=== PATIENT | male | born 1965 | race Caucasian/White ===

== ENCOUNTER 2017-04-25 18:24 | Inpatient (IN) | payer MEDICARE ==
[~2017-04-25] VITALS: Ht 190.5 cm; Wt 99.7 kg
[2017-04-25 19:00] VITALS: PULSE 76
--- NOTE | 2017-04-25 19:16 | HHI.HP ---
[facility] No Primary Care Physician Admission Diagnosis Diagnoses: Travel History International Travel<30 Days: No Contact w/Intl Traveler <30 Da: No Traveled to Known Affected Are: No History of Present Illness History from patient, family members at the bedside, review of medical records from [facility]. Patient reported that his primary care doctor called him at home and told him to go to ER because his BNP was greater than 35,000. He reports he has been short of breath. However it was only when he walks around. Not addressed. He states he cannot sleep flat. He usually has to sleep on his left side. Denies any fever. Reports that this dyspnea on exertion has been happening for the past 4-5 months. He reports he has been coughing occasionally. But did not really produce any sputum except for once or twice. He does report of chronic peripheral edema bilaterally in the lower extremities. He states in fact this edema is improving in the past one week or so. His doctor has recently changed his diuretics from Lasix to torsemide. He denies any associated chest pains with this shortness of breath. He does however report of night sweats for the past few months. Denies any weight loss. Denies any loss of appetite. On further review of system, patient reports of diarrhea on and off for the past 4-5 months. He states that usually he would have diarrhea at least 3-4 times a day. At least out of the 7 days in a week, he would have diarrhea about 4 days. He denies any black color stools or red-colored stools. Denies being on antibiotics or hospitalization. Denies ever having any EGD or colonoscopy prior. Review of Systems Except as stated in HPI: all other systems reviewed are Neg Past Family Social History Past Medical History htn- off meds for years dm- off meds for about 1 yr; was taking trujaenda chf- on diuretics- has been over a year , no changes in dose Past Surgical History both knees replaced diabetic ulcer- toe amputation Allergies: Coded Allergies: No Known Allergies (Verified Allergy, Unknown, 04/25/17) Family History moms side- alzeimers none that he knows of Social History never smoked was exposed to second hand smoke no drugs no etoh abuse Physical Exam Physical Exam GENERAL: This is a well-nourished, well-developed patient, in no apparent distress. SKIN: No rashes, ecchymoses or lesions. Cool and dry. Pallor present HEAD: Atraumatic. Normocephalic. No temporal or scalp tenderness. EYES: No scleral icterus. No injection or drainage. ENT: Nose without bleeding, purulent drainage or septal hematoma. Airway patent. NECK: Trachea midline. Positive JVD CARDIOVASCULAR: Regular rate and rhythm without murmurs, gallops, or rubs. RESPIRATORY: Left lung field completely absent air entry. GASTROINTESTINAL: Abdomen soft, non-tender, nondistended. No guarding. No suprapubic tenderness. MUSCULOSKELETAL: Extremities without clubbing, cyanosis. Bilateral lower extremity 3+ pitting edema up to thighs. Small superficial skin ulcerations bilaterally from fluid retention and minor abrasions. NEUROLOGICAL: Awake and alert. Motor and sensory grossly within normal limits. Normal speech. Laboratory Labs from [place] which was done today reviewed. WBC 6.2. Hemoglobin 8.1, hematocrit 24.7. Platelet count 204. Sodium 140. Potassium 5.6. BUN 86. Creatinine 4.99. Glucose 177. AST ALT, bili profile within normal limits. BNP greater than 35,000. Albumin 2.7. Vitals and [place] reviewed. Blood pressure 161/82. Temperature 98.2. Imaging Chest x-ray done at [place]. Report reviewed. Complete opacification of left hemithorax likely secondary to pleural effusion. Mucous plug cannot be excluded. Caprini VTE Risk Assessment Caprini VTE Risk Assessment: Mod/High Risk (score >= 2) Caprini Risk Assessment Model Point Value = 1 Point Value = 2 Point Value = 3 Point Value = 5 Age 41-60 Minor surgery BMI > 25 kg/m2 Swollen legs Varicose veins or History of unexplained or recurrent spontaneous Oral contraceptives or hormone replacement Sepsis (< 1 month) Serious lung disease, including pneumonia (< 1 month) Abnormal pulmonary function Acute myocardial infarction Congestive heart failure (< 1 month) History of inflammatory bowel disease Medical patient at bed rest Age 61-74 Arthroscopic surgery Major open surgery (> 45 min) Laparoscopic surgery (> 45 min) Malignancy Confined to bed (> 72 hours) Immobilizing plaster cast Central venous access Age >= 75 History of VTE Family history of VTE Factor V Leiden Prothrombin [id number] Lupus anticoagulant Anticardiolipin antibodies Elevated serum homocysteine Heparin-induced thrombocytopenia Other congenital or acquired thrombophilia Stroke (< 1 month) Elective arthroplasty Hip, pelvis, or leg fracture Acute spinal cord injury (< 1 month) Prophylaxis Regimen Total Risk Factor Score Risk Level Prophylaxis Regimen 0-1 Low Early ambulation 2 Moderate Order ONE of the following: *Sequential Compression Device (SCD) *Heparin 5000 units SQ BID 3-4 Higher Order ONE of the following medications: *Heparin 5000 units SQ TID *Enoxaparin/Lovenox 40 mg SQ daily (WT < 150 kg, CrCl > 30 mL/min) *Enoxaparin/Lovenox 30 mg SQ daily (WT < 150 kg, CrCl > 10-29 mL/min) *Enoxaparin/Lovenox 30 mg SQ BID (WT < 150 kg, CrCl > 30 mL/min) AND/OR *Sequential Compression Device (SCD) 5 or more Highest Order ONE of the following medications: *Heparin 5000 units SQ TID (Preferred with Epidurals) *Enoxaparin/Lovenox 40 mg SQ daily (WT < 150 kg, CrCl > 30 mL/min) *Enoxaparin/Lovenox 30 mg SQ daily (WT < 150 kg, CrCl > 10-29 mL/min) *Enoxaparin/Lovenox 30 mg SQ BID (WT < 150 kg, CrCl > 30 mL/min) AND *Sequential Compression Device (SCD) Assessment and Plan Assessment and Plan Impression: Acute on chronic heart failure Left pleural effusion. Likely secondary to CHF exacerbation/renal failure. Renal failure acute versus acute on chronic versus medications and used. Patient was recently started on lisinopril, torsemide. Bilateral lower extremity peripheral edema with weeping ulceration. Secondary to fluid retention. Also worsened by small scraping/accidents while patient was helping his cousin with a boat. Elevated BNP. Secondary to heart failure/renal failure Elevated troponin 0.88. Asymptomatic. Secondary to renal failure. Anemia. Acute versus chronic. Patient denies any history of black stools or red stools. Diarrhea of 4-5 months duration. Could be contributing to his acute renal failure with intravascular depletion/use of diuretics. Diabetes Hypertension Hyperlipidemia History of CHF Plan: CT-guided thoracocentesis by interventional radiologist in a.m. We'll send samples for cytology, cultures, cell count etc. Echocardiogram in a.m. Ultrasound of the kidney/bladder/prostate in a.m. Hold Triston inhibitors for now. We'll use hydralazine for BP control. Continue Coreg. Nephrology consult. Cardiology consult. At present, patient is quite comfortable so long as he is lying in bed and lying on his left side. Therefore I would hold off on diuretics due to his acute renal failure. If patient does get extremely short of breath, will diurese. Hemoglobin and hematocrit. Type and screen. Stool for guaiac. Iron profile. Likely this patient has chronic anemia as well. In view of his diarrhea of 4-5 months duration which is coinciding with his dyspnea, I would also consult GI service for possible EGD/colonoscopy while in hospital. Monitor his fingersticks. Cover with sliding scale coverage. Nothing by mouth past midnight for thoracocentesis. DVT prophylaxis with heparin. GI prophylaxis on pantoprazole. Discussed Condition With Patient, nursing staff, family members at the bedside Physician Certification 2 Midnight Certification Type: Admission for Inpatient Services Order for Inpatient Services The services are ordered in accordance with Medicare regulations or non- Medicare payer requirements, as applicable. In the case of services not specified as inpatient-only, they are appropriately provided as inpatient services in accordance with the 2-midnight benchmark. Estimated LOS (days): 4 days is the estimated time the patient will need to remain in the hospital, assuming treatment plan goals are met and no additional complications. Post-Hospital Plan: Home Henri Gómez MD Apr 25, 2017 19:16
[2017-04-25 20:00] VITALS: BP 191/109; PULSE 75; PULSE 77; RESP 20; TEMP 97.8; O2SAT 97
[2017-04-25] MEDS ORDERED: GLUCAGON 1 MG/ML VIAL OTHER PRN (20:00)
[2017-04-25] MEDS ORDERED: NALOXONE HCL 0.4 MG/ML AMP IV PUSH PRN (20:00)
[2017-04-25] MEDS ORDERED: SODIUM CHLORIDE 0.9% FLUSH 10 ML FLUSH IV FLUSH PRN (20:00)
[2017-04-25] MEDS ORDERED: DEXTROSE 50% IN WATER 50 ML VIAL(D50) IV PUSH PRN (20:00)
[2017-04-25 21:00] VITALS: PULSE 74
[2017-04-25] MEDS: INSULIN ASPART SUPPLEMENTAL SCALE SQ SCH (21:00)
[2017-04-25 22:00] VITALS: PULSE 74
[2017-04-25 22:28] LABS: % SATURATION IRON PROFILE 13.2 % (20-50); IRON (FE) 35 MCG/DL (65-175); TOTAL IRON BINDING CAPACITY 265 MCG/DL (250-450); TROPONIN I LESS THAN 0.02 NG/ML (0.02-0.05)
[2017-04-25] MEDS: CARVEDILOL 12.5 MG TAB PO SCH (22:52)
[2017-04-25] MEDS: hydrALAZINE HCL 25 MG TAB PO SCH (22:53)
[2017-04-25] MEDS: HEPARIN SODIUM - SQ 10,000 UNITS/ML VIAL SQ SCH (22:53)
[2017-04-25] MEDS: SODIUM CHLORIDE 0.9% FLUSH 10 ML FLUSH IV FLUSH SCH (22:54)
[2017-04-25 23:00] VITALS: PULSE 74
[2017-04-26] VITALS (24 sets, daily range): BP systolic 131–177; BP diastolic 72–110; PULSE 62–72; RESP 16–20; TEMP 97.7–98.6; O2SAT 92–97
[2017-04-26 02:59] LABS: AUTOMATED NEUTROPHIL # 4.7 TH/MM3 (1.8-7.7); BASOPHIL # 0.2 TH/MM3 (0-0.2); BASOPHIL % 3.2 % (0.0-2.0); EOSINOPHIL # 0.2 TH/MM3 (0-0.4); EOSINOPHIL % 2.4 % (0.0-4.0); HEMATOCRIT 22.9 % (39.0-51.0); HEMOGLOBIN 7.7 GM/DL (13.0-17.0); LYMPH % 11.3 % (9.0-44.0); LYMPHOCYTE # 0.7 TH/MM3 (1.0-4.8); MEAN CELL VOLUME 88.3 FL (80.0-100.0); MEAN CORPUSCULAR HEMOGLOBIN 29.8 PG (27.0-34.0); MEAN CORPUSCULAR HGB CONC 33.8 % (32.0-36.0); MEAN PLATELET VOLUME 7.5 FL (7.0-11.0); MONO % 9.2 % (0.0-8.0); MONOCYTE # 0.6 TH/MM3 (0-0.9); NEUT % 73.9 % (16.0-70.0); PLATELET COUNT 192 TH/MM3 (150-450); RED CELL DISTRIBUTION WIDTH 14.8 % (11.6-17.2); WHITE BLOOD COUNT 6.4 TH/MM3 (4.0-11.0)
[2017-04-26 03:31] LABS: BICARBONATE 24.8 MEQ/L (21.0-32.0); CALCIUM 8.2 MG/DL (8.5-10.1); CREATININE 5.26 MG/DL (0.60-1.30)
[2017-04-26 03:35] LABS: TROPONIN I LESS THAN 0.02 NG/ML (0.02-0.05)
[2017-04-26] MEDS: hydrALAZINE HCL 25 MG TAB PO SCH ×4 (05:43→22:09)
[2017-04-26] MEDS: INSULIN ASPART SUPPLEMENTAL SCALE SQ SCH ×4 (08:00→22:08)
[2017-04-26] MEDS: HEPARIN SODIUM - SQ 10,000 UNITS/ML VIAL SQ SCH ×2 (09:00→20:28)
--- NOTE | 2017-04-26 10:09 | RADRPT ---
EXAM DATE/TIME: 04/26/2017 07:46 [facility] COMPARISON: No previous studies available for comparison. INDICATIONS : Renal failure. MEDICAL HISTORY : Hypertension. Congestive heart failure. Diabetes. Endocrine disorders. SURGICAL HISTORY : Bilateral knee arthroscopies. ENCOUNTER: Initial ACUITY: 1 day PAIN SCORE: 3/10 LOCATION: Bilateral flank MEASUREMENTS: RIGHT KIDNEY: 12.6 x 6.1 x 5.0 cm LEFT KIDNEY: 12.2 x 6.9 x 3.9 cm FINDINGS: The kidneys demonstrates increased echogenicity of the cortex compatible with medical renal disease. No hydronephrosis or mass lesions are identified. There is a trace of fluid surrounding the spleen. T he bladder appears normal. No wall thickening or intraluminal masses are identified. CONCLUSION: Echogenic kidneys bilaterally compatible with medical renal disease. Trace ascites Mark Maravilla MD on April 26, 2017 at 9:28 Board Certified Radiologist. This report was verified electronically.
[2017-04-26] MEDS: PANTOPRAZOLE SOD 40 MG DELAYED RELEASE TAB PO SCH (10:41)
[2017-04-26] MEDS: SODIUM CHLORIDE 0.9% FLUSH 10 ML FLUSH IV FLUSH SCH ×2 (10:41→20:14)
[2017-04-26] MEDS: CARVEDILOL 12.5 MG TAB PO SCH ×2 (10:42→20:28)
[2017-04-26] MEDS: hydrALAZINE HCL 20 MG/ML VIAL IV PUSH PRN ×2 (10:46→18:00)
[2017-04-26 10:56] LABS: INTERNATIONAL NORMALIZED RATIO 1.2 RATIO; PROTHROMBIN TIME - PATIENT 12.6 SEC (9.8-11.6)
--- NOTE | 2017-04-26 11:19 | MB ---
cc: Norm Denis MD DATE OF CONSULT: REASON FOR CONSULTATION: Evaluation of congestive heart failure and shortness of breath. HISTORY: Leif Moseley is a 51-year-old man with known hypertension, diabetes and congestive heart failure who has been on no medications for over a year and has not seen a doctor in over a year. He has been getting progressive shortness of breath along with edema in his feet. He says he went to And then sent here. The patient has noticed his shortness of breath worse if he lies on his right side. He has a large left pleural effusion. The lower extremity edema has been severe and he has actually had some weeping. He has had some diarrhea. Denies any melena or hematochezia. Denies any anginal pain or anginal type symptoms, only dyspnea. He does some walking, but not that much. PAST MEDICAL HISTORY: Includes: 1. Hypertension 2. Diabetes 3. Congestive heart failure. He has been on nothing but diuretics and has had no follow up. PAST SURGICAL HISTORY: Includes: 1. Knee surgery 2. He has had his right fourth and fifth toes amputated. SOCIAL HISTORY: He is , nonsmoker and nondrinker. FAMILY HISTORY: Notable for Alzheimer's in his mother. No heart disease that he is aware of. CLINICAL EXAM: GENERAL: This is a well-developed, well-nourished man with normal affect in no acute distress. VITAL SIGNS: Charted. HEENT: Unremarkable. NECK: Shows neck vein distention. There is a soft right carotid bruit. CHEST: Shows absent breath sounds on the left side. CARDIAC: Shows normal S1 and S2, soft S4 and a 1/6 systolic ejection murmur. ABDOMEN: Looks mildly distended, cannot rule out ascites. EXTREMITIES: Show 3+ lower extremity edema up to the thighs. Right fourth and fifth toes surgically absent. Dorsalis pedis pulses are very palpable. LABORATORY DATA: Very abnormal and they are charted. His hematocrit is only 22.9, creatinine is 5.26, potassium is 5.3. Troponins are less than 0.02. He is iron deficient with an iron saturation of 13.2%. IMPRESSION: This is a 51-year-old man with renal failure with evidence for severe fluid retention, pleural effusions and lower extremity edema. The rest of this I think is due to the kidney state. PLAN: 1. Check a 2-D echo Doppler study to assess LV function. 2. We will leave the diuretic management up to nephrology. It looks like he may need to be on renal replacement therapy if not now in the very near future. 3. Further therapy to be determined. MD ESHA Hassan/ZAKI/guzman , 08:01 AM , 09:51 AM
[2017-04-26] MEDS ORDERED: LIDOCAINE HCL 1% 20 ML VIAL ONE (14:13)
--- NOTE | 2017-04-26 14:16 | RADRPT ---
EXAM DATE/TIME: 04/26/2017 14:02 [facility] COMPARISON: No previous studies available for comparison. INDICATIONS : Post left thoracentesis. MEDICAL HISTORY : Hypertension. Congestive heart failure. SURGICAL HISTORY : Knee ENCOUNTER: Initial ACUITY: 1 day PAIN SCORE: 0/10 LOCATION: Left chest FINDINGS: A single frontal expiratory view of the chest was performed. Pleural-parenchymal density throughout t he left hemithorax with small portion of aerated lung. There is some slight volume loss in the left. No pneumothorax seen. Right lung relatively clear. CONCLUSION: 1. No pneumothorax on the left. 2. Pleural proximal density throughout the left hemithorax likely residual loculated effusion. Contra sted CT chest recommended. Robert Estrada MD on April 26, 2017 at 14:13 Board Certified Radiologist. This report was verified electronically.
--- NOTE | 2017-04-26 15:09 | PD.CONS ---
HPI History of Present Illness This is a 51 year old M with PMH significant for HTN, CHF, and DM, has recently been off medications for HNT and DM for over a year. Pt was sent by his PCP to the hospital for evaluation of an elevated BNP. Pt reports history of SOB on exertion and orthopnea for the past 4-5 months. Ptwas found to have a pleural effusion is now S/P thoracentesis. GI has been consulted to evaluate pt for diarrhea and anemia. Pt report diarrhea has been intermittent for the past 4-5 months, some days he has multiple episodes of loose, watery stools and other days his BMs are normal. He denies any fecal urgency or incontinence. Denies hematochezia and melena. Denies associated abdominal pain. Also denies acid reflux, heartburn, dysphagia, unintentional weight loss. Has never had EGD or colonoscopy. Denies taking NSAIDs, blood thinners, ETOH. Denies history of anemia or blood dyscrasias. 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 (Arianne Dillon) Coded Allergies: No Known Allergies (Verified Allergy, Unknown, 04/25/17) Family History moms side- sohanmers none that he knows of Social History never smoked was exposed to second hand smoke no drugs no etoh abuse (Arianne Dillon) Review of Systems Gastrointestinal: COMPLAINS OF: Diarrhea, DENIES: Abdominal pain, Black stools , Bloody stools, Constipation, Nausea, Vomiting, Difficulty Swallowing, Odynophagia, Swelling of Abdomen, Heartburn, Hematemesis (Arianne Dillon) GI Exam Vitals I&O Vital Signs Date Time Temp Pulse Resp B/P (MAP) Pulse Ox O2 Delivery O2 Flow Rate FiO2 04/26/17 13:30 98.3 64 20 148/92 (110) 94 04/26/17 06:00 68 04/26/17 05:00 68 04/26/17 04:00 98.4 69 20 162/98 (119) 95 04/26/17 04:00 69 04/26/17 03:00 68 04/26/17 02:00 66 04/26/17 01:00 66 04/26/17 00:00 68 04/26/17 00:00 97.7 67 20 131/72 (91) 92 04/25/17 23:00 74 04/25/17 22:00 74 04/25/17 21:00 74 04/25/17 20:00 77 04/25/17 20:00 97.8 75 20 191/109 (136) 97 04/25/17 19:00 76 I/O 04/25/17 04/25/17 04/25/17 04/26/17 04/26/17 04/26/17 07:00 15:00 23:00 07:00 15:00 23:00 Intake Total 240 ml Balance 240 ml Intake Oral 240 ml # Voids 1 Imaging Last Impressions Renal Ultrasound 04/26/17 0000 Signed Impressions: Service Date/Time: Wednesday, April 26, 2017 07:46 - CONCLUSION: Echogenic kidneys bilaterally compatible with medical renal disease. Trace ascites Mark Maravilla MD Chest X-Ray 04/26/17 0000 Signed Impressions: Service Date/Time: Wednesday, April 26, 2017 14:02 - CONCLUSION: 1. No pneumothorax on the left. 2. Pleural proximal density throughout the left hemithorax likely residual loculated effusion. Contrasted CT chest recommended. Robert Estrada MD Laboratory Test 04/25/17 21:35 04/25/17 21:39 04/26/17 02:53 04/26/17 10:28 Iron Level 35 MCG/DL Total Iron Binding Capacity 265 MCG/DL Percent Iron Saturation 13.2 % Total Creatine Kinase 307 U/L 240 U/L Troponin I LESS THAN 0.02 NG/ML LESS THAN 0.02 NG/ML B-Type Natriuretic Peptide 1915 PG/ML White Blood Count 6.4 TH/MM3 Red Blood Count 2.60 MIL/MM3 Hemoglobin 7.7 GM/DL Hematocrit 22.9 % Mean Corpuscular Volume 88.3 FL Mean Corpuscular Hemoglobin 29.8 PG Mean Corpuscular Hemoglobin Concent 33.8 % Red Cell Distribution Width 14.8 % Platelet Count 192 TH/MM3 Mean Platelet Volume 7.5 FL Neutrophils (%) (Auto) 73.9 % Lymphocytes (%) (Auto) 11.3 % Monocytes (%) (Auto) 9.2 % Eosinophils (%) (Auto) 2.4 % Basophils (%) (Auto) 3.2 % Neutrophils # (Auto) 4.7 TH/MM3 Lymphocytes # (Auto) 0.7 TH/MM3 Monocytes # (Auto) 0.6 TH/MM3 Eosinophils # (Auto) 0.2 TH/MM3 Basophils # (Auto) 0.2 TH/MM3 CBC Comment DIFF FINAL Differential Comment Blood Urea Nitrogen 89 MG/DL Creatinine 5.26 MG/DL Random Glucose 206 MG/DL Calcium Level 8.2 MG/DL Sodium Level 138 MEQ/L Potassium Level 5.3 MEQ/L Chloride Level 106 MEQ/L Carbon Dioxide Level 24.8 MEQ/L Anion Gap 7 MEQ/L Estimat Glomerular Filtration Rate 12 ML/MIN Prothrombin Time 12.6 SEC Prothromb Time International Ratio 1.2 RATIO Activated Partial Thromboplast Time 26.7 SEC Test 04/26/17 13:50 Pleural Fluid pH 8.0 Date/Time Source Procedure Growth Status 04/26/17 13:50 Fluid Pleural Fluid Gram Stain Pending Received 04/26/17 13:50 Fluid Pleural Fluid Body Fluid Culture Pending Received Physical Examination HEENT: Normocephalic; atraumatic CHEST: Even/unlabored CARDIAC: RRR ABDOMEN: Soft, nondistended, nontender; bowel sounds active EXTREMITIES: BLE edema SKIN: Normal; no rash; (+) jaundice. IMPROVEMENT INTERN: No focal deficits; alert and oriented times three. (Arianne Dillon) Assessment and Plan Plan Assessment: - Diarrhea, intermittent for the past 4-5 months. States has days with multiple , loose stool and other days where his stools are formed. Denies fecal urgency, incontinence, hematochezia, melena, fever, chills, sick contacts. Has never had EGD or colonoscopy. Protonix - Anemia- unclear etiology, normocytic, denies history of anemia and blood dyscrasias. ?OSMANY denies history of renal impairment, hx of DM, off medication. ?hemolytic- pt appears jaundiced - Jaundice, per family pt does appear more of an orange color, no LFTs from this visit - Pleural effusion S/P thoracentesis prior to my exam, reports improvement in SOB - CHF exacerbation- elevated BNP - diuretic per nephrology Plan: Cardiac work up prior to GI procedures EGD/colon likely later this week pending cardiac work up Stool cultures Hemoccult stool Hepatic function profile Monitor CBC Protonix Notify GI of any active bleeding Further recommendations based on findings of above Pt has been seen and examined by myself and Dr. Matt and this note is written on his behalf (Arianne Dillon) Plan Patient was seen and examined, agree with above-noted, patient has multiple issues including renal failure, congestive heart failure, diabetes, anemia most likely related to chronic disease but we need to rule out GI source so the patient will need upper endoscopy and colonoscopy when stable from cardiac and nephrology aspect, meanwhile we will do supportive care, give him packed RBC as needed, patient also has diarrhea which is very mild and could be related to congestive heart failure very minimal and we will do stool culture and monitor (Yuliet Matt MD) Arianne Dillon Apr 26, 2017 15:09 Yuliet Matt MD Apr 26, 2017 15:37
[2017-04-26 15:13] LABS: TOTAL PROTEIN,PLEURAL FLUID 1.5 GM/DL
--- NOTE | 2017-04-26 15:14 | PD.CONS ---
HPI Service Nephrology Consult Requested By Dr. Gómez Reason for Consult Acute and chronic kidney disease Primary Care Physician No Primary Care Physician History of Present Illness Patient is a 51-year-old male with history of diabetes diagnosed in 2011 initially was taking oral medications and last couple of years started taking insulin, patient lost follow-up and has not seen primary care physician until last and she directed him to come to the hospital due to abnormal labs, creatinine is 5.26, GFR 12, he is experiencing edema up to his waistline and it has been going on since past year, gets short of breath as well , He gets fatigued Denies dysuria burning or kidney stones Review of Systems Constitutional: COMPLAINS OF: Fatigue Respiratory: COMPLAINS OF: Shortness of breath Cardiovascular: COMPLAINS OF: Dyspnea on Exertion, Lower Extremity Edema Musculoskeletal: COMPLAINS OF: Joint pain Neurologic: COMPLAINS OF: Abnormal gait Past Family Social History Allergies: Coded Allergies: No Known Allergies (Verified Allergy, Unknown, 04/25/17) Past Medical History Diabetes Hypertension Chronic kidney disease Peripheral edema Anemia Past Surgical History Bilateral knee toe amputation Active Ordered Medications Current Medications Medications (Trade) Dose Ordered Sig/Dilcia Route Start Time Stop Time Status Last Admin (D50w (Vial) Inj) 50 ml UNSCH PRN IV PUSH 04/25/17 20:00 (Glucagon Inj) 1 mg UNSCH PRN OTHER 04/25/17 20:00 (NovoLOG SUPPLEMENTAL SCALE) 1 ACHS SLIDING SCALE SQ 04/25/17 21:00 (NS Flush) 2 ml UNSCH PRN IV FLUSH 04/25/17 20:00 (NS Flush) 2 ml BID IV FLUSH 04/25/17 21:00 04/26/17 10:41 (Heparin Inj) 5,000 units Q12H SQ 04/25/17 21:00 04/25/17 22:53 (Narcan Inj) 0.4 mg UNSCH PRN IV PUSH 04/25/17 20:00 (Coreg) 12.5 mg Q12HR PO 04/25/17 21:00 04/26/17 10:42 (Apresoline) 25 mg Q8HR PO 04/25/17 22:00 04/26/17 05:43 (Apresoline Inj) 10 mg Q30M PRN IV PUSH 04/25/17 20:00 04/26/17 10:46 (Protonix) 40 mg DAILY PO 04/26/17 09:00 04/26/17 10:41 (Flu (Quadrivalent) Vaccine Inj) 0.5 ml ONCE ONCE IM 04/27/17 10:00 04/27/17 10:01 Family History Mother side has Alzheimer's disease Social History Denies smoking or alcohol use Physical Exam Vital Signs Vital Signs Date Time Temp Pulse Resp B/P (MAP) Pulse Ox O2 Delivery O2 Flow Rate FiO2 04/26/17 13:30 98.3 64 20 148/92 (110) 94 04/26/17 06:00 68 04/26/17 05:00 68 04/26/17 04:00 98.4 69 20 162/98 (119) 95 04/26/17 04:00 69 04/26/17 03:00 68 04/26/17 02:00 66 04/26/17 01:00 66 04/26/17 00:00 68 04/26/17 00:00 97.7 67 20 131/72 (91) 92 04/25/17 23:00 74 04/25/17 22:00 74 04/25/17 21:00 74 04/25/17 20:00 77 04/25/17 20:00 97.8 75 20 191/109 (136) 97 04/25/17 19:00 76 Physical Exam GENERAL: Well-nourished, well-developed patient. SKIN: Warm and dry. HEAD: Normocephalic. EYES: No scleral icterus. No injection or drainage. NECK: Supple, trachea midline. No JVD or lymphadenopathy. CARDIOVASCULAR: Regular rate and rhythm without murmurs, gallops, or rubs. RESPIRATORY: Breath sounds equal bilaterally. No accessory muscle use. GASTROINTESTINAL: Abdomen soft, non-tender, nondistended. EXTREMITIES: No cyanosis, 3+ edema. NEUROLOGICAL: Awake, alert, and oriented x 3. Laboratory Laboratory Tests Test 04/25/17 21:35 04/25/17 21:39 04/26/17 02:53 04/26/17 10:28 Iron Level 35 Total Iron Binding Capacity 265 Percent Iron Saturation 13.2 Total Creatine Kinase 307 240 Troponin I LESS THAN 0.02 LESS THAN 0.02 B-Type Natriuretic Peptide 1915 White Blood Count 6.4 Red Blood Count 2.60 Hemoglobin 7.7 Hematocrit 22.9 Mean Corpuscular Volume 88.3 Mean Corpuscular Hemoglobin 29.8 Mean Corpuscular Hemoglobin Concent 33.8 Red Cell Distribution Width 14.8 Platelet Count 192 Mean Platelet Volume 7.5 Neutrophils (%) (Auto) 73.9 Lymphocytes (%) (Auto) 11.3 Monocytes (%) (Auto) 9.2 Eosinophils (%) (Auto) 2.4 Basophils (%) (Auto) 3.2 Neutrophils # (Auto) 4.7 Lymphocytes # (Auto) 0.7 Monocytes # (Auto) 0.6 Eosinophils # (Auto) 0.2 Basophils # (Auto) 0.2 CBC Comment DIFF FINAL Differential Comment Blood Urea Nitrogen 89 Creatinine 5.26 Random Glucose 206 Calcium Level 8.2 Sodium Level 138 Potassium Level 5.3 Chloride Level 106 Carbon Dioxide Level 24.8 Anion Gap 7 Estimat Glomerular Filtration Rate 12 Prothrombin Time 12.6 Prothromb Time International Ratio 1.2 Activated Partial Thromboplast Time 26.7 Test 04/26/17 13:50 Pleural Fluid pH 8.0 Date/Time Source Procedure Growth Status 04/26/17 13:50 Fluid Pleural Fluid Gram Stain Pending Received 04/26/17 13:50 Fluid Pleural Fluid Body Fluid Culture Pending Received Result Diagram: 04/26/17 0253 04/26/17 0253 Imaging Last Impressions Renal Ultrasound 04/26/17 0000 Signed Impressions: Service Date/Time: Wednesday, April 26, 2017 07:46 - CONCLUSION: Echogenic kidneys bilaterally compatible with medical renal disease. Trace ascites Mark Maravilla MD Chest X-Ray 04/26/17 0000 Signed Impressions: Service Date/Time: Wednesday, April 26, 2017 14:02 - CONCLUSION: 1. No pneumothorax on the left. 2. Pleural proximal density throughout the left hemithorax likely residual loculated effusion. Contrasted CT chest recommended. Robert Estrada MD Assessment and Plan Problem List: (1) Acute renal failure ICD Codes: N17.9 - Acute kidney failure, unspecified Plan: Patient likely has advanced diabetic nephropathy and may be having a reversible kidney damage He has not seen a primary care physician on regular basis Baseline creatinine unknown Avoid nephrotoxins Will do CHAD protein electrophoresis C3-C4 hepatitis Start Lasix 40 mg IV every 12 (2) CKD (chronic kidney disease), stage V ICD Codes: N18.5 - Chronic kidney disease, stage 5 Plan: Possibility of dialysis discussed (3) Diabetes ICD Codes: E11.9 - Type 2 diabetes mellitus without complications Plan: Complications including renal failure (4) Hypertension ICD Codes: I10 - Essential (primary) hypertension (5) Anemia ICD Codes: D64.9 - Anemia, unspecified Plan: Continue to monitor in June need Procrit Problem Qualifiers (1) Diabetes: Jeremy Light MD Apr 26, 2017 15:14
[2017-04-26 15:15] LABS: PLEURAL FLUID LYMPHS 94 %; PLEURAL FLUID POLYS (SEGS) 6 %; PLEURAL FLUID RBC 7479 /MM3 (0-0); PLEURAL FLUID WBC 583 /MM3 (0-10)
--- NOTE | 2017-04-26 15:41 | RADRPT ---
EXAM DATE/TIME: 04/26/2017 13:24 [facility] COMPARISON: No previous studies available for comparison. INDICATIONS : Left pleural effusion. MEDICAL HISTORY : Hypertension. Congestive heart failure. Diabetes. Endocrine disorders. SURGICAL HISTORY : Bilateral knee surgery. ENCOUNTER: Initial ACUITY: 1 day PAIN SCORE: 0/10 LOCATION: Left chest FLUID: Total volume of 1,750 cc of clear, yellow fluid was removed. Fluid was sent to lab for ordered studies. TECHNIQUE: 1. Ultrasound guidance for thoracentesis. 2. Thoracentesis. The risks, benefits, and alternatives to ultrasound guided thoracentesis were explained to the patien t in lay simple terms, including the risk of bleeding and infection. Written and verbal informed con sent was obtained. Appropriate area for thoracentesis was marked under ultrasound guidance with the patient in the uprig ht position. Overlying skin was prepped and draped in the usual sterile fashion and with local anest hetic, a dermatotomy was made with an 11 blade scalpel. A 6 Welsh thoracentesis catheter was placed in the pleural space and fluid was removed. Catheter was then removed and a sterile dressing applie d. There were no immediate complications. The patient tolerated the procedure well and the left the ultrasound suite in stable condition. Chest radiograph is to be obtained. CONCLUSION: Uncomplicated ultrasound guided thoracentesis. Robert Estrada MD on April 26, 2017 at 15:40 Board Certified Radiologist. This report was verified electronically.
[2017-04-26] MEDS ORDERED: IRON SUCROSE INJ 100 MG in SODIUM CHLORIDE 0.9% INJ 100 ML IV ONE (16:00)
[2017-04-26 16:12] LABS: ALBUMIN 2.3 GM/DL (3.4-5.0); DIRECT BILIRUBIN ADULT 0.1 MG/DL (0.0-0.2)
[2017-04-26 16:21] LABS: INDIRECT BILIRUBIN 0.2 MG/DL (0.0-0.8); TOTAL BILIRUBIN ADULT 0.3 MG/DL (0.2-1.0); TOTAL PROTEIN 6.2 GM/DL (6.4-8.2)
--- NOTE | 2017-04-26 16:45 | HHI.PR ---
Subjective Remarks Etiology for patient's acute renal failure is unclear. It does not appear that he had significant renal disease 1 year ago as the condition of renal disease was never mentioned the patient after he had a blood draw 1 year ago. Pain is present after thoracentesis. Objective Vital Signs Date Time Temp Pulse Resp B/P (MAP) Pulse Ox O2 Delivery O2 Flow Rate FiO2 04/26/17 13:30 98.3 64 20 148/92 (110) 94 04/26/17 11:30 97.8 68 18 155/98 (117) 96 04/26/17 10:00 97.7 72 18 177/110 (132) 96 04/26/17 06:00 68 04/26/17 05:00 68 04/26/17 04:00 98.4 69 20 162/98 (119) 95 04/26/17 04:00 69 04/26/17 03:00 68 04/26/17 02:00 66 04/26/17 01:00 66 04/26/17 00:00 68 04/26/17 00:00 97.7 67 20 131/72 (91) 92 04/25/17 23:00 74 04/25/17 22:00 74 04/25/17 21:00 74 04/25/17 20:00 77 04/25/17 20:00 97.8 75 20 191/109 (136) 97 04/25/17 19:00 76 I/O 04/25/17 04/25/17 04/25/17 04/26/17 04/26/17 04/26/17 07:00 15:00 23:00 07:00 15:00 23:00 Intake Total 240 ml Balance 240 ml Intake Oral 240 ml # Voids 1 Result Diagram: 04/26/17 0253 04/26/17 0253 Objective Remarks GENERAL: NAD, A&Ox3 HEAD: Normocephalic. NECK: Supple, trachea midline. No lymphadenopathy. EYES: No scleral icterus. No injection or drainage. CARDIOVASCULAR: Regular rate and rhythm without murmurs, gallops, or rubs. RESPIRATORY: Breath sounds equal bilaterally. No accessory muscle use. GASTROINTESTINAL: Abdomen soft, non-tender, nondistended. MUSCULOSKELETAL: No cyanosis, or edema. Moderate lower extremity edema. SKIN: Warm and dry. NEURO: No focal neurological deficitis. A/P Problem List: (1) Hypertension ICD Code: I10 - Essential (primary) hypertension (2) Anemia ICD Code: D64.9 - Anemia, unspecified (3) CKD (chronic kidney disease), stage V ICD Code: N18.5 - Chronic kidney disease, stage 5 (4) Diabetes ICD Code: E11.9 - Type 2 diabetes mellitus without complications (5) Acute renal failure ICD Code: N17.9 - Acute kidney failure, unspecified Assessment and Plan 51-year-old male admitted secondary to acute renal failure Acute renal failure Ultrasound shows evidence of disease Monitor renal function Nephrology following Autoimmune workup Elevated troponin May be related to renal failure Cardiology following History of systolic CHF Acute on chronic CHF Follow clinically Echocardiogram pending Pleural effusion Status post thoracentesis today Follow cytology and cultures Etiology may be related to renal failure Autoimmune workup Hypertension Continue baseline treatment Follow blood pressures Adjust treatments as needed Continue Coreg Triston inhibitors discontinued Hydralazine Hyperlipidemia Continue present treatment Follow as an outpatient Chronic diarrhea GI consulted Follow clinically Diabetes mellitus type 2 Follow blood sugars Insulin sliding scale Diabetic diet DVT prophylaxis Heparin Problem Qualifiers (1) Diabetes: Estevan Kaplan MD Apr 26, 2017 16:45
--- NOTE | 2017-04-26 17:25 | ECHRPT ---
Indication: CARDIOMYOPATHY CONCLUSIONS Mildly dilated left ventricle. The left ventricular systolic function is moderately reduced with an estimated ejection fraction in the range of 40-45%. Mild LVH. The left atrial size is xjlzoinu-wv-zothrxqf dilated. The right atrial size is ijku-lt-tyokrpgqgl dilated. Mild mitral valve regurgitation. Aortic valve sclerosis is present. There is mild to moderate tricuspid valve regurgitation. The estimated pulmonary arterial pressure is 64 mmHg. Mild pulmonary valve regurgitation. A right sided pleural effusion is present. A large left sided pleural effusion is noted. BP: 162 / 98 HR: Rhythm: Sinus MEASUREMENTS (Male / Female) Normal Values Technical Quality:Fair 2D ECHO LV Diastolic Diameter PLAX 6.6 cm 4.2 - 5.9 / 3.9 - 5.3 cm LV Systolic Diameter PLAX 5.5 cm IVS Diastolic Thickness 0.7 cm 0.6 - 1.0 / 0.6 - 0.9 cm LVPW Diastolic Thickness 0.7 cm 0.6 - 1.0 / 0.6 - 0.9 cm LV Relative Wall Thickness 0.2 RV Internal Dim ED PLAX 2.7 cm LVOT Diameter 2.5 cm Aortic Root Diameter 3.5 cm LA Systolic Diameter LX 4.3 cm 3.0 - 4.0 / 2.7 - 3.8 cm M-MODE AV Cusp Separation MM 2.4 cm DOPPLER AV Peak Velocity 110.0 cm/s AV Peak Gradient 4.8 mmHg AV Mean Gradient 3.0 mmHg AV Velocity Time Integral 23.9 cm LVOT Peak Velocity 71.4 cm/s LVOT Peak Gradient 2.0 mmHg LVOT Velocity Time Integral 15.0 cm AV Area Cont Eq vti 3.1 cm AV Area Cont Eq pk 3.2 cm Mitral E Point Velocity 83.4 cm/s Mitral A Point Velocity 70.6 cm/s Mitral E to A Ratio 1.2 LV E' Lateral Velocity 4.6 cm/s Mitral E to LV E' Lateral Ratio 18.2 LV E' Septal Velocity 5.0 cm/s Mitral E to LV E' Septal Ratio 16.8 TR Peak Velocity 368.0 cm/s TR Peak Gradient 54.2 mmHg Right Atrial Pressure 10.0 mmHg Pulmonary Artery Systolic Pressu 64.2 mmHg Right Ventricular Systolic Press 64.2 mmHg PV Peak Velocity 42.1 cm/s PV Peak Gradient 0.7 mmHg FINDINGS LEFT VENTRICLE Mildly dilated left ventricle. The left ventricular systolic function is moderately reduced with an estimated ejection fraction in the range of 40-45%. Mild LVH. RIGHT VENTRICLE The right ventricle was not well visualized. LEFT ATRIUM The left atrial size is kdfsjvpz-oh-iidcvjqd dilated. RIGHT ATRIUM The right atrial size is wbsm-mn-yjqjiivbik dilated. ATRIAL SEPTUM No atrial level shunt is demonstrated by color flow Doppler interrogation. AORTA The aortic root and proximal ascending aorta are not well visualized. MITRAL VALVE Mild mitral valve regurgitation. AORTIC VALVE Aortic valve sclerosis is present. TRICUSPID VALVE There is mild to moderate tricuspid valve regurgitation. The estimated pulmonary arterial pressure is 64.2 mmHg. PULMONARY VALVE Mild pulmonary valve regurgitation. VESSELS The inferior vena cava was not well visualized. PERICARDIUM No pericardial effusion. A right sided pleural effusion is present. A large left sided pleural effusion is noted. Corina Hamilton MD, FACC (Electronically Signed) Final Date:26 April 2017 17:24
[2017-04-26 17:59] LABS: COMPLEMENT C3 99 MG/DL (90-180); COMPLEMENT C4 23 MG/DL (10-40)
[2017-04-26] MEDS: FUROSEMIDE 40 MG/4 ML VIAL IV PUSH SCH (18:04)
[2017-04-26] MEDS: MORPHINE SULFATE 15 MG TAB PO PRN (20:13)
--- NOTE | 2017-04-26 22:15 | EKG ---
Date Performed: 04/26/2017 Time Performed: 01:28:56 PTAGE: 51 years EKG: Sinus rhythm Short MI interval Lateral ST-T changes are nonspecific Borderline ECG PREVIOUS TRACING : 04/25/2017 21.42 Since the prior tracing, there has been no significant german DOCTOR: Corina Hamilton Interpretating Date/Time 04/26/2017 22:14:12
--- NOTE | 2017-04-26 22:32 | EKG ---
Date Performed: 04/25/2017 Time Performed: 21:42:14 PTAGE: 51 years EKG: Sinus rhythm Leftward axis Ant/septal and lateral ST-T changes Abnormal ECG NO PREVIOUS TRACING DOCTOR: Corina Hamilton Interpretating Date/Time 04/26/2017 22:31:11
[2017-04-27] VITALS (7 sets, daily range): BP systolic 112–144; BP diastolic 75–80; PULSE 60–63; RESP 15–17; TEMP 95.7–96.7; O2SAT 95–97
[2017-04-27] MEDS: hydrALAZINE HCL 25 MG TAB PO SCH ×3 (05:31→22:24)
[2017-04-27 06:23] LABS: AUTOMATED NEUTROPHIL # 4.7 TH/MM3 (1.8-7.7); BASOPHIL % 0.7 % (0.0-2.0); EOSINOPHIL # 0.2 TH/MM3 (0-0.4); EOSINOPHIL % 2.6 % (0.0-4.0); HEMOGLOBIN 8.3 GM/DL (13.0-17.0); LYMPH % 12.5 % (9.0-44.0); LYMPHOCYTE # 0.8 TH/MM3 (1.0-4.8); MEAN CELL VOLUME 87.3 FL (80.0-100.0); MEAN CORPUSCULAR HEMOGLOBIN 30.2 PG (27.0-34.0); MEAN CORPUSCULAR HGB CONC 34.6 % (32.0-36.0); MEAN PLATELET VOLUME 7.8 FL (7.0-11.0); MONO % 11.2 % (0.0-8.0); MONOCYTE # 0.7 TH/MM3 (0-0.9); PLATELET COUNT 199 TH/MM3 (150-450); RED BLOOD COUNT 2.75 MIL/MM3 (4.50-5.90); RED CELL DISTRIBUTION WIDTH 14.6 % (11.6-17.2); WHITE BLOOD COUNT 6.4 TH/MM3 (4.0-11.0)
[2017-04-27 06:50] LABS: ALBUMIN 2.1 GM/DL (3.4-5.0); AST (GOT) 13 U/L (15-37); BICARBONATE 22.6 MEQ/L (21.0-32.0); BLOOD UREA NITROGEN 89 MG/DL (7-18); CALCIUM 8.1 MG/DL (8.5-10.1); CHLORIDE 107 MEQ/L (98-107); CREATININE 5.32 MG/DL (0.60-1.30); GLOMERULAR FILTRATION RATE 11 ML/MIN (>89); GLUCOSE,RANDOM 124 MG/DL (74-106); SODIUM (NA) 139 MEQ/L (136-145)
[2017-04-27 06:51] LABS: RHEUMATOID FACTOR SCREEN NEGATIVE (NEGATIVE)
[2017-04-27 06:54] LABS: ALKALINE PHOSPHATASE 125 U/L (45-117); ALT (GPT) 22 U/L (12-78); C-REACTIVE PROTEIN 1.23 MG/DL (0.00-0.30); PHOSPHORUS 6.4 MG/DL (2.5-4.9); TOTAL BILIRUBIN ADULT 0.4 MG/DL (0.2-1.0); TOTAL PROTEIN 5.9 GM/DL (6.4-8.2)
[2017-04-27] MEDS: INSULIN ASPART SUPPLEMENTAL SCALE SQ SCH ×4 (07:42→19:37)
[2017-04-27] MEDS: CARVEDILOL 12.5 MG TAB PO SCH ×2 (07:46→19:34)
[2017-04-27] MEDS: PANTOPRAZOLE SOD 40 MG DELAYED RELEASE TAB PO SCH (07:46)
[2017-04-27] MEDS: FUROSEMIDE 40 MG/4 ML VIAL IV PUSH SCH ×2 (07:46→17:01)
[2017-04-27] MEDS: HEPARIN SODIUM - SQ 10,000 UNITS/ML VIAL SQ SCH ×2 (07:46→19:20)
[2017-04-27] MEDS: SODIUM CHLORIDE 0.9% FLUSH 10 ML FLUSH IV FLUSH SCH ×2 (07:47→19:37)
--- NOTE | 2017-04-27 08:55 | HHI.PR ---
Subjective Remarks Follow-up for dyspnea, pleural effusion, renal failure. Patient is currently doing well. Currently on room air and reports no shortness of breath, chest pain or fever or chills. Objective Vitals Vital Signs Date Time Temp Pulse Resp B/P (MAP) Pulse Ox O2 Delivery O2 Flow Rate FiO2 04/27/17 07:44 95.7 63 17 144/80 (101) 95 04/27/17 06:00 96.7 63 15 140/75 (96) 95 04/27/17 04:00 62 04/27/17 01:00 62 04/27/17 00:00 96.1 63 15 112/77 (89) 95 04/26/17 22:36 98.6 65 16 141/79 (99) 97 04/26/17 22:00 66 04/26/17 21:00 68 04/26/17 20:00 97.9 69 20 141/72 (95) 97 04/26/17 20:00 66 04/26/17 19:00 66 04/26/17 18:00 64 04/26/17 17:00 62 04/26/17 16:00 63 04/26/17 16:00 97.9 66 18 163/98 (119) 96 04/26/17 13:30 98.3 64 20 148/92 (110) 94 04/26/17 13:00 64 04/26/17 12:00 66 04/26/17 11:30 97.8 68 18 155/98 (117) 96 04/26/17 11:00 67 04/26/17 10:00 66 04/26/17 10:00 97.7 72 18 177/110 (132) 96 04/26/17 09:00 66 I/O 04/26/17 04/26/17 04/26/17 04/27/17 04/27/17 04/27/17 07:00 15:00 23:00 07:00 15:00 23:00 Intake Total 240 ml 1020 ml Output Total 650 ml Balance 240 ml 370 ml Intake Oral 240 ml 1020 ml Output Urine Total 650 ml # Voids 1 1 Result Diagram: 04/27/17 0528 04/27/17 0528 Imaging Last Impressions Thoracentesis Ultrasound 04/26/17 0000 Signed Impressions: Service Date/Time: Wednesday, April 26, 2017 13:24 - CONCLUSION: Uncomplicated ultrasound guided thoracentesis. Robert Estrada MD Renal Ultrasound 04/26/17 0000 Signed Impressions: Service Date/Time: Wednesday, April 26, 2017 07:46 - CONCLUSION: Echogenic kidneys bilaterally compatible with medical renal disease. Trace ascites Mark Maravilla MD Chest X-Ray 04/26/17 0000 Signed Impressions: Service Date/Time: Wednesday, April 26, 2017 14:02 - CONCLUSION: 1. No pneumothorax on the left. 2. Pleural proximal density throughout the left hemithorax likely residual loculated effusion. Contrasted CT chest recommended. Robert Estrada MD Objective Remarks GENERAL: Alert, oriented 3, NAD. SKIN: Warm and dry. HEAD: Normocephalic. EYES: No scleral icterus. No injection or drainage. NECK: Supple, trachea midline. No JVD or lymphadenopathy. CARDIOVASCULAR: Regular rate and rhythm without murmurs, gallops, or rubs. RESPIRATORY: Breath sounds equal bilaterally. No accessory muscle use. GASTROINTESTINAL: Abdomen soft, non-tender, nondistended. MUSCULOSKELETAL: No cyanosis, or edema. BACK: Nontender without obvious deformity. No CVA tenderness. Procedures Ultrasound-guided thoracentesis 04/26/2017. Echocardiogram 04/26/2017 Mildly dilated left ventricle. The left ventricular systolic function is moderately reduced with an estimated ejection fraction in the range of 40-45%. Mild LVH. The left atrial size is tzwzpnjm-fl-krodacxe dilated. The right atrial size is ianx-ef-jelqecawax dilated. Mild mitral valve regurgitation. Aortic valve sclerosis is present. There is mild to moderate tricuspid valve regurgitation. The estimated pulmonary arterial pressure is 64 mmHg. Mild pulmonary valve regurgitation. A right sided pleural effusion is present. A large left sided pleural effusion is noted. A/P Problem List: (1) Bilateral pleural effusion ICD Code: J90 - Pleural effusion, not elsewhere classified (2) OSMANY (acute kidney injury) ICD Code: N17.9 - Acute kidney failure, unspecified (3) Diabetes mellitus, type 2 ICD Code: E11.9 - Type 2 diabetes mellitus without complications (4) CKD (chronic kidney disease), stage V ICD Code: N18.5 - Chronic kidney disease, stage 5 (5) Hypertension ICD Code: I10 - Essential (primary) hypertension Assessment and Plan Mr. Moseley is a 51-year-old male with a history of hypertension, CHF, diabetes mellitus who presented to the hospital due to elevated BNP. He was sent to the hospital by his primary care physician. He reports shortness of breath especially on exertion and orthopnea for the last 3-5 months. In the hospital workup indicated bilateral pleural effusion and patient underwent thoracentesis on 04/26/2017. He also reported multiple episodes of diarrhea, dysphagia as well as unintentional weight loss. Nephrology was consulted due to acute on chronic kidney disease. GI was consulted due to diarrhea as well as dysphagia. -Bilateral pleural effusion -Likely due to acute on chronic kidney disease. -Possibly also due to systolic heart failure. Echo shows ejection fraction 40-45%. -Status post thoracentesis. Patient is currently on Lasix 40 mg IV twice daily. -Pleural fluid consistent with transudative fluid -Acute systolic congestive heart failure exacerbation -Continue Lasix IV. Continue carvedilol 12.5 mg p.o. twice daily. -Hypertension -continue carvedilol, hydralazine 25 mg p.o. every 8 hours. -Acute kidney injury -Chronic kidney disease stage V -Acute kidney injury is possibly due to diarrhea, dysphagia -Cost Control Supervisor loosely following. -Creatinine 5.32 today. EGFR 11. -Patient may need transient dialysis at least. -Diabetes mellitus -We will continue sliding scale insulin. If needed we will consider long- acting insulin as well. Full code. Heparin subcutaneous. Suzanne Coates DO Apr 27, 2017 08:55
[2017-04-27] MEDS ORDERED: INFLUENZA VIRUS VACCINE (QUADRIVALENT) 0.5 ML SYR IM ONE (10:00)
--- NOTE | 2017-04-27 11:27 | PD.CARD.PN ---
Subjective Subjective Remarks less SOB, no angina Objective Medications Current Medications Medications (Trade) Dose Ordered Sig/Dilcia Route Start Time Stop Time Status Last Admin (D50w (Vial) Inj) 50 ml UNSCH PRN IV PUSH 04/25/17 20:00 (Glucagon Inj) 1 mg UNSCH PRN OTHER 04/25/17 20:00 (NovoLOG SUPPLEMENTAL SCALE) 1 ACHS SLIDING SCALE SQ 04/25/17 21:00 04/26/17 22:08 (NS Flush) 2 ml UNSCH PRN IV FLUSH 04/25/17 20:00 (NS Flush) 2 ml BID IV FLUSH 04/25/17 21:00 04/27/17 07:47 (Heparin Inj) 5,000 units Q12H SQ 04/25/17 21:00 04/27/17 07:46 (Narcan Inj) 0.4 mg UNSCH PRN IV PUSH 04/25/17 20:00 (Coreg) 12.5 mg Q12HR PO 04/25/17 21:00 04/27/17 07:46 (Apresoline) 25 mg Q8HR PO 04/25/17 22:00 04/27/17 05:31 (Apresoline Inj) 10 mg Q30M PRN IV PUSH 04/25/17 20:00 04/26/17 18:00 (Protonix) 40 mg DAILY PO 04/26/17 09:00 04/27/17 07:46 (Lasix Inj) 40 mg BID@,18 IV PUSH 04/26/17 18:00 04/27/17 07:46 (Msir) 15 mg Q4H PRN PO 04/26/17 16:45 04/26/17 20:13 Vital Signs / I&O Vital Signs Date Time Temp Pulse Resp B/P (MAP) Pulse Ox O2 Delivery O2 Flow Rate FiO2 04/27/17 07:44 95.7 63 17 144/80 (101) 95 04/27/17 06:00 96.7 63 15 140/75 (96) 95 04/27/17 04:00 62 04/27/17 01:00 62 04/27/17 00:00 96.1 63 15 112/77 (89) 95 04/26/17 22:36 98.6 65 16 141/79 (99) 97 04/26/17 22:00 66 04/26/17 21:00 68 04/26/17 20:00 97.9 69 20 141/72 (95) 97 04/26/17 20:00 66 04/26/17 19:00 66 04/26/17 18:00 64 04/26/17 17:00 62 04/26/17 16:00 63 04/26/17 16:00 97.9 66 18 163/98 (119) 96 04/26/17 13:30 98.3 64 20 148/92 (110) 94 04/26/17 13:00 64 04/26/17 12:00 66 04/26/17 11:30 97.8 68 18 155/98 (117) 96 I/O 04/26/17 04/26/17 04/26/17 04/27/17 04/27/17 04/27/17 07:00 15:00 23:00 07:00 15:00 23:00 Intake Total 240 ml 1020 ml Output Total 650 ml Balance 240 ml 370 ml Intake Oral 240 ml 1020 ml Output Urine Total 650 ml # Voids 1 1 Physical Exam Alert No JVD seen Chest: dullness and absent BS left base CV S1S2 RRR, +S4, 2/6 early ABRAHAM Abd soft Ext + edema Laboratory Laboratory Tests Test 04/26/17 13:50 04/26/17 17:17 04/26/17 22:15 04/27/17 05:28 Pleural Fluid pH 8.0 Pleural Fluid WBC 583 /MM3 Pleural Fluid RBC 7479 /MM3 Pleural Fluid Neutrophils 6 % Pleural Fluid Lymphocytes 94 % Pleural Fluid Total Protein 1.5 GM/DL Pleural Fluid LDH 77 U/L Pleural Fluid Glucose 140 MG/DL Total Protein 6.3 GM/DL 5.9 GM/DL Complement C3 99 MG/DL Complement C4 23 MG/DL Stool C. difficile Toxin (PCR) NEGATIVE Stl C. difficile Toxin Epiderm 027 PRESUMPTIVE NEGATIVE White Blood Count 6.4 TH/MM3 Red Blood Count 2.75 MIL/MM3 Hemoglobin 8.3 GM/DL Hematocrit 24.0 % Mean Corpuscular Volume 87.3 FL Mean Corpuscular Hemoglobin 30.2 PG Mean Corpuscular Hemoglobin Concent 34.6 % Red Cell Distribution Width 14.6 % Platelet Count 199 TH/MM3 Mean Platelet Volume 7.8 FL Neutrophils (%) (Auto) 73.0 % Lymphocytes (%) (Auto) 12.5 % Monocytes (%) (Auto) 11.2 % Eosinophils (%) (Auto) 2.6 % Basophils (%) (Auto) 0.7 % Neutrophils # (Auto) 4.7 TH/MM3 Lymphocytes # (Auto) 0.8 TH/MM3 Monocytes # (Auto) 0.7 TH/MM3 Eosinophils # (Auto) 0.2 TH/MM3 Basophils # (Auto) 0.0 TH/MM3 CBC Comment DIFF FINAL Differential Comment Erythrocyte Sedimentation Rate 77 mm/hr Blood Urea Nitrogen 89 MG/DL Creatinine 5.32 MG/DL Random Glucose 124 MG/DL Albumin 2.1 GM/DL Calcium Level 8.1 MG/DL Phosphorus Level 6.4 MG/DL Alkaline Phosphatase 125 U/L Aspartate Amino Transf (AST/SGOT) 13 U/L Alanine Aminotransferase (ALT/SGPT) 22 U/L Total Bilirubin 0.4 MG/DL Sodium Level 139 MEQ/L Potassium Level 5.0 MEQ/L Chloride Level 107 MEQ/L Carbon Dioxide Level 22.6 MEQ/L Anion Gap 9 MEQ/L Estimat Glomerular Filtration Rate 11 ML/MIN C-Reactive Protein 1.23 MG/DL Parathyroid Hormone (Intact) 155.3 PG/ML Rheumatoid Factor Screen NEGATIVE Rheumatoid Factor Titer IU/ML Imaging Last 48 hours Impressions Thoracentesis Ultrasound 04/26/17 0000 Signed Impressions: Service Date/Time: Wednesday, April 26, 2017 13:24 - CONCLUSION: Uncomplicated ultrasound guided thoracentesis. Robert Estrada MD Renal Ultrasound 04/26/17 0000 Signed Impressions: Service Date/Time: Wednesday, April 26, 2017 07:46 - CONCLUSION: Echogenic kidneys bilaterally compatible with medical renal disease. Trace ascites Mark Maravilla MD Chest X-Ray 04/26/17 0000 Signed Impressions: Service Date/Time: Wednesday, April 26, 2017 14:02 - CONCLUSION: 1. No pneumothorax on the left. 2. Pleural proximal density throughout the left hemithorax likely residual loculated effusion. Contrasted CT chest recommended. Robert Estrada MD Assessment and Plan Problem List: (1) Hypertensive heart and chronic kidney disease with heart failure ICD Codes: I13.0 - Hypertensive heart and chronic kidney disease with heart failure and stage 1 through stage 4 chronic kidney disease, or unspecified chronic kidney disease Plan: defer to nephrology. LVEF 40-45% with LVH (2) CKD (chronic kidney disease), stage V ICD Codes: N18.5 - Chronic kidney disease, stage 5 (3) Loculated pleural effusion ICD Codes: J90 - Pleural effusion, not elsewhere classified Plan: consult Dr. Ben Valero (4) Iron deficiency anemia ICD Codes: D50.9 - Iron deficiency anemia, unspecified Plan: Cardiology cleared for EGDE/ colonoscopy Assessment and Plan I will be seeing patient prn - please call if questions ([facility]) Norm Denis MD Apr 27, 2017 11:27
[2017-04-27 11:59] LABS: HEPATITIS A AB IGM NEGATIVE (NEGATIVE); HEPATITIS B CORE AB IGM NEGATIVE (NEGATIVE)
[2017-04-27 12:57] LABS: AMYLASE BODY FLUID 11 U/L; AMYLASE BODY FLUID TYPE PLEURAL
--- NOTE | 2017-04-27 14:31 | HHI.GIFU ---
Subjective Remarks Pt resting in bed, family at bedside. Denies diarrhea at this time.Denies bleeding. (Nemo Tam) Objective Vitals I&O Vital Signs Date Time Temp Pulse Resp B/P (MAP) Pulse Ox O2 Delivery O2 Flow Rate FiO2 04/27/17 11:41 95.9 61 17 141/77 (98) 96 04/27/17 07:44 95.7 63 17 144/80 (101) 95 04/27/17 06:00 96.7 63 15 140/75 (96) 95 04/27/17 04:00 62 04/27/17 01:00 62 04/27/17 00:00 96.1 63 15 112/77 (89) 95 04/26/17 22:36 98.6 65 16 141/79 (99) 97 04/26/17 22:00 66 04/26/17 21:00 68 04/26/17 20:00 97.9 69 20 141/72 (95) 97 04/26/17 20:00 66 04/26/17 19:00 66 04/26/17 18:00 64 04/26/17 17:00 62 04/26/17 16:00 63 04/26/17 16:00 97.9 66 18 163/98 (119) 96 I/O 04/26/17 04/26/17 04/26/17 04/27/17 04/27/17 04/27/17 07:00 15:00 23:00 07:00 15:00 23:00 Intake Total 240 ml 1020 ml Output Total 650 ml Balance 240 ml 370 ml Intake Oral 240 ml 1020 ml Output Urine Total 650 ml # Voids 1 1 Laboratory Laboratory Tests Test 04/26/17 17:17 04/26/17 22:15 04/27/17 05:28 Total Protein 6.3 5.9 Complement C3 99 Complement C4 23 Hepatitis A IgM Antibody NEGATIVE Hepatitis B Surface Antigen NEGATIVE Hepatitis B Core IgM Antibody NEGATIVE Hepatitis C Antibody REACTIVE Stool C. difficile Toxin (PCR) NEGATIVE Stl C. difficile Toxin Epiderm 027 PRESUMPTIVE NEGATIVE White Blood Count 6.4 Red Blood Count 2.75 Hemoglobin 8.3 Hematocrit 24.0 Mean Corpuscular Volume 87.3 Mean Corpuscular Hemoglobin 30.2 Mean Corpuscular Hemoglobin Concent 34.6 Red Cell Distribution Width 14.6 Platelet Count 199 Mean Platelet Volume 7.8 Neutrophils (%) (Auto) 73.0 Lymphocytes (%) (Auto) 12.5 Monocytes (%) (Auto) 11.2 Eosinophils (%) (Auto) 2.6 Basophils (%) (Auto) 0.7 Neutrophils # (Auto) 4.7 Lymphocytes # (Auto) 0.8 Monocytes # (Auto) 0.7 Eosinophils # (Auto) 0.2 Basophils # (Auto) 0.0 CBC Comment DIFF FINAL Differential Comment Erythrocyte Sedimentation Rate 77 Blood Urea Nitrogen 89 Creatinine 5.32 Random Glucose 124 Albumin 2.1 Calcium Level 8.1 Phosphorus Level 6.4 Alkaline Phosphatase 125 Aspartate Amino Transf (AST/SGOT) 13 Alanine Aminotransferase (ALT/SGPT) 22 Total Bilirubin 0.4 Sodium Level 139 Potassium Level 5.0 Chloride Level 107 Carbon Dioxide Level 22.6 Anion Gap 9 Estimat Glomerular Filtration Rate 11 C-Reactive Protein 1.23 Parathyroid Hormone (Intact) 155.3 Rheumatoid Factor Screen NEGATIVE Rheumatoid Factor Titer Date/Time Source Procedure Growth Status 04/26/17 13:50 Fluid Pleural Fluid Gram Stain - Final Resulted 04/26/17 13:50 Fluid Pleural Fluid Body Fluid Culture Pending Resulted 04/26/17 22:15 Stool Stool Cryptosporidium Exam Pending Resulted 04/26/17 22:15 Stool Stool Giardia Antigen (ELIO) Pending Resulted 04/26/17 22:15 Stool Stool Stool Occult Blood (ELIO) - Final HEMOCCULT NEGATIVE Resulted Imaging Last Impressions Thoracentesis Ultrasound 04/26/17 0000 Signed Impressions: Service Date/Time: Wednesday, April 26, 2017 13:24 - CONCLUSION: Uncomplicated ultrasound guided thoracentesis. Robert Estrada MD Renal Ultrasound 04/26/17 0000 Signed Impressions: Service Date/Time: Wednesday, April 26, 2017 07:46 - CONCLUSION: Echogenic kidneys bilaterally compatible with medical renal disease. Trace ascites Mark Maravilla MD Chest X-Ray 04/26/17 0000 Signed Impressions: Service Date/Time: Wednesday, April 26, 2017 14:02 - CONCLUSION: 1. No pneumothorax on the left. 2. Pleural proximal density throughout the left hemithorax likely residual loculated effusion. Contrasted CT chest recommended. Robert Estrada MD Physical Exam HEENT: PERRL; normocephalic; atraumatic; no jaundice. CHEST: CTA CARDIAC: RRR ABDOMEN: Soft, nondistended, nontender; no hepatosplenomegaly; bowel sounds are present in all four quadrants. EXTREMITIES: No clubbing, cyanosis, + BLE edema, bandages to BLE dry and intact. SKIN: Normal; no rash; no jaundice. INSPECTOR GOLF BALL: No focal deficits; alert and oriented times three. (Nemo Tam) Assessment and Plan Plan Assessment: - Diarrhea, intermittent for the past 4-5 months. States has days with multiple , loose stool and other days where his stools are formed. Denies fecal urgency, incontinence, hematochezia, melena, fever, chills, sick contacts. Has never had EGD or colonoscopy. Protonix - Anemia- unclear etiology, normocytic, denies history of anemia and blood dyscrasias. ?OSMANY denies history of renal impairment, hx of DM, off medication. ?hemolytic- pt appears jaundiced - Jaundice, per family pt does appear more of an orange color, no LFTs from this visit - Pleural effusion S/P thoracentesis prior to my exam, reports improvement in SOB - CHF exacerbation- elevated BNP - diuretic per nephrology 04/27/17 c diff neg. cardiology has cleared him for endoscopy. HH stable. hcv ab reactive. stool neg for occult blood Plan: EGD/colon tomorrow obtain consent clears today NPo after MN Seb await Stool cultures hcv quant and genotype Monitor CBC Protonix Notify GI of any active bleeding Further recommendations based on findings of above Pt has been seen and examined by myself and Dr. Matt and this note is written on his behalf (Nemo Tam) Plan Patient was seen and examined, agree with above-noted, we will plan on diagnostic upper endoscopy and colonoscopy tomorrow since the patient on Plavix , cardiology would like to proceed since the patient is on anticoagulation (Yuliet Matt MD) Nemo Tam Apr 27, 2017 14:31 Yuliet Matt MD Apr 27, 2017 17:59
[2017-04-27] MEDS ORDERED: PEG (High)/E-LYTE SOLN 4000 ML BTL PO ONE (15:00)
[2017-04-27 16:04] LABS: ANA SCREEN NEG (NEG)
--- NOTE | 2017-04-27 16:30 | RADRPT ---
EXAM DATE/TIME: 04/27/2017 15:55 [facility] COMPARISON: CHEST EXPIRATION ONLY, April 26, 2017, 14:02. INDICATIONS : Post pleural effusion 1.75L removed RADIATION DOSE: 12.78 CTDIvol (mGy) MEDICAL HISTORY : Cardiovascular disease. Hypertension. diabetes SURGICAL HISTORY : None. ENCOUNTER: Initial ACUITY: 1 day PAIN SCALE: 4/10 LOCATION: chest TECHNIQUE: Volumetric scanning of the chest was performed. Using automated exposure control and adjustment of t he mA and/or kV according to patient size, radiation dose was kept as low as reasonably achievable to obtain optimal diagnostic quality images. DICOM format image data is available electronically for r eview and comparison. Follow-up recommendations for detected pulmonary nodules are based at a minimum on nodule size and pa tient risk factors according to Fleischner Society Guidelines. FINDINGS: LUNGS: There is volume loss/atelectasis within the left lung with possible consolidation in the left upper l obe. Mild compressive atelectasis is present in the right lower lobe. No pneumothorax is present. PLEURAE: There is a large left pleural effusion that demonstrates Hounsfield density measurements consistent w ith simple fluid but there is parietal pleural thickening. A small simple appearing right pleural eff usion is present. MEDIASTINUM: Heart and great vessels demonstrate no acute finding but there is coronary artery calcification and l ow density of the cardiac blood pool suggests anemia. There is a mildly enlarged precarinal lymph nod e measuring 12 mm in short axis diameter. AXILLAE: Within normal limits. No lymphadenopathy. MUSCULOSKELETAL: There are degenerative changes of the thoracic spine. MISCELLANEOUS: There is a small volume of perihepatic free fluid. CONCLUSION: 1. Residual large left pleural effusion with associated parietal pleural thickening. There is anshul sive atelectasis within the left lung and possible consolidation in the left upper lobe. 2. Small simple appearing right pleural effusion with mild compressive atelectasis in the right lower lobe. 3. There is a small volume of free fluid in the upper abdomen. Danilo Carney MD on April 27, 2017 at 16:24 Board Certified Radiologist. This report was verified electronically.
[2017-04-27 17:20] LABS: BACTERIA, URINE RARE /hpf; BILIRUBIN, URINE NEG (NEG); BLOOD, URINE TRACE (NEG); GLUCOSE,URINE 70 mg/dL (NEG); HYALINE CAST, URINE 7 /lpf (RARE); KETONE, URINE NEG (NEG); NITRITE,URINE NEG (NEG); PH, URINE 5.5 (5.0-8.5); SPERM, URINE RARE; URINE COLOR LIGHT-YELLOW (YELLW/STRAW); URINE LEUKOCYTE ESTERASE NEG (NEG)
[2017-04-27] MEDS ORDERED: SODIUM CHLOR 0.9% 1000 ML INJ 1,000 ML OTHER PRN ×2 (19:13)
[2017-04-27] MEDS ORDERED: SODIUM CHLOR 0.9% 1000 ML INJ 1,000 ML IV PRN (19:13)
[2017-04-27] MEDS ORDERED: MANNITOL 12.5 GM/50 ML VIAL IV PRN (19:15)
[2017-04-27] MEDS ORDERED: ACETAMINOPHEN 325 MG TAB PO PRN (19:15)
[2017-04-27] MEDS ORDERED: HEPARIN SODIUM - IV 10,000 UNITS/10 ML VIAL IV FLUSH PRN (19:15)
[2017-04-27] MEDS ORDERED: SODIUM CHLORIDE 0.9% FLUSH 10 ML FLUSH IV FLUSH PRN (19:15)
[2017-04-27] MEDS ORDERED: NITROGLYCERIN 0.4 MG SL 25 TABS/BTL SL PRN (19:15)
[2017-04-27] MEDS ORDERED: GELATIN 12 MM/7 MM FOAM TOP PRN (19:15)
[2017-04-27] MEDS ORDERED: ALBUMIN 25% INJ 100 ML IV PRN (19:15)
[2017-04-27] MEDS ORDERED: diphenhydrAMINE HCL 25 MG CAP PO PRN (19:15)
[2017-04-27] MEDS ORDERED: cloNIDine HCL 0.1 MG TAB PO PRN (19:15)
--- NOTE | 2017-04-27 19:18 | HHI.NPPN ---
Subjective History of Present Illness 51 year old with IDDM, CKD stage 5, anemia, Sec [facility] Review of Systems General Constitutional: Fatigue Cardiovascular Cardiac: Edema Objective Data Data 04/27/17 04/28/17 19:00 07:00 Intake Total 580 ml Balance 580 ml Intake Oral 480 ml IV Total 100 ml # Voids 3 # Bowel Movements 0 Vital Signs Date Time Temp Pulse Resp B/P (MAP) Pulse Ox O2 Delivery O2 Flow Rate FiO2 04/27/17 11:41 95.9 61 17 141/77 (98) 96 04/27/17 07:44 95.7 63 17 144/80 (101) 95 04/27/17 06:00 96.7 63 15 140/75 (96) 95 04/27/17 04:00 62 04/27/17 01:00 62 04/27/17 00:00 96.1 63 15 112/77 (89) 95 04/26/17 22:36 98.6 65 16 141/79 (99) 97 04/26/17 22:00 66 04/26/17 21:00 68 04/26/17 20:00 97.9 69 20 141/72 (95) 97 04/26/17 20:00 66 -: 04/27/17 0528 04/27/17 0528 Microbiology 04/26/17 Cryptosporidium Exam, Resulted Pending 04/26/17 Giardia Antigen (ELIO), Resulted Pending 04/26/17 Stool Occult Blood (ELIO) - Final, Resulted HEMOCCULT NEGATIVE 04/26/17 - Final, Complete NO ENTERIC PATHOGENS DETECTED BY PCR... Physical Exam General Appearance: Well Developed, Well Nourished Neck Neck Exam: Neck Supple Pulmonary Resp Exam: Clear Bilaterally, Breath Sounds Equal Gastrointestinal/Abdomen GI Exam: Soft, Non-Tender, Bowel Sounds Present Extremeties Extremities Exam: Moderate Edema, Pitting Edema Assessment/Plan Problem List: (1) Acute renal failure ICD Codes: N17.9 - Acute kidney failure, unspecified Plan: Patient likely has advanced diabetic nephropathy His kidney function has no improvement discussed dialysis in detail, PermCath placement and hemodialysis explained AVF needed explained al questions answered C3-C4 normal CHAD neg on Lasix 40 mg IV every 12 for Colonoscopy (2) CKD (chronic kidney disease), stage V ICD Codes: N18.5 - Chronic kidney disease, stage 5 Plan: dialysis discussed consult Dr. Arevalo for Fistula (3) Diabetes ICD Codes: E11.9 - Type 2 diabetes mellitus without complications Plan: Complications including renal failure (4) Hypertension ICD Codes: I10 - Essential (primary) hypertension (5) Anemia ICD Codes: D64.9 - Anemia, unspecified Plan: Continue to monitor in June need Procrit Problem Qualifiers (1) Diabetes: Jeremy Light MD Apr 27, 2017 19:18
[2017-04-28] VITALS (11 sets, daily range): BP systolic 133–178; BP diastolic 67–92; PULSE 60–68; RESP 16–18; TEMP 96–97.6; O2SAT 91–98
[2017-04-28] MEDS: hydrALAZINE HCL 25 MG TAB PO SCH ×4 (05:59→22:19)
--- NOTE | 2017-04-28 06:55 | RADRPT ---
EXAM DATE/TIME: 04/28/2017 06:09 [facility] COMPARISON: CT THORAX W/O CONTRAST, April 27, 2017, 15:55. CHEST EXPIRATION ONLY, April 26, 2017, 14:02. INDICATIONS : Short of breath, evaluate left pleural effusion MEDICAL HISTORY : Hypertension. Congestive heart failure. Diabetes mellitus type II. renal failure SURGICAL HISTORY : knee ENCOUNTER: Subsequent ACUITY: 3 days PAIN SCORE: Non-responsive. LOCATION: Bilateral chest FINDINGS: Redemonstration of large left pleural effusion with associated airspace disease in the left lung. Tra ce right pleural effusion noted on CT exam is not well demonstrated on radiograph. Cardiomediastinal contours are within normal limits. Remainder of the exam is unchanged CONCLUSION: 1. Persistent large left pleural effusion with associated airspace disease in the left lung. 2. No significant interval change. Corey Zavala MD on April 28, 2017 at 6:53 Board Certified Radiologist. This report was verified electronically.
[2017-04-28] MEDS: CARVEDILOL 12.5 MG TAB PO SCH ×2 (07:59→20:30)
[2017-04-28] MEDS: FUROSEMIDE 40 MG/4 ML VIAL IV PUSH SCH ×2 (07:59→18:00)
[2017-04-28] MEDS: INSULIN ASPART SUPPLEMENTAL SCALE SQ SCH ×4 (08:00→20:29)
[2017-04-28] MEDS: SODIUM CHLORIDE 0.9% FLUSH 10 ML FLUSH IV FLUSH SCH ×2 (08:01→20:29)
[2017-04-28] MEDS: HEPARIN SODIUM - SQ 10,000 UNITS/ML VIAL SQ SCH ×2 (08:07→20:11)
[2017-04-28] MEDS: PANTOPRAZOLE SOD 40 MG DELAYED RELEASE TAB PO SCH (08:07)
[2017-04-28] MEDS ORDERED: MIDAZOLAM HCL 2 MG/2 ML VIAL ONE (09:21)
[2017-04-28] MEDS ORDERED: ceFAZolin 2 GM PREMIX 50 ML ONE (09:35)
[2017-04-28] MEDS ORDERED: VANCOMYCIN HCL 1000 MG VIAL ONE (09:35)
[2017-04-28] MEDS ORDERED: LIDOCAINE 1%/EPINEPHrine 1:100,000 SOLN 30 ML VIAL ONE (09:36)
--- NOTE | 2017-04-28 10:41 | PD.RAD ---
Post Procedure Progress Note Pre Procedure Diagnosis: (1) Acute renal failure Post Procedure Diagnosis: (1) Acute renal failure Procedure Date: Apr 28, 2017 Supervising Radiologist: Mark Maravilla Proceduralist/Assist: Vira Epperson RT(R)(), Michelle Solano RT(R) Anesthesia: Conscious Sedation Plan of Activity Patient to Unit: Nursing Unit Patient Condition: Good See PACS Report for procedural detail/treatment Central Venous Access Device Procedure 1 Right Internal Jugular Hemodialysis Catheter Tunneled Placement dual lumen Mark Maravilla MD Apr 28, 2017 10:41
[2017-04-28] MEDS ORDERED: HEPARIN SODIUM - IV 2,000 UNITS/2 ML VIAL IV FLUSH PRN (10:45)
[2017-04-28] MEDS ORDERED: SODIUM CHLORIDE 0.9% FLUSH 10 ML FLUSH IV FLUSH PRN (10:45)
[2017-04-28 11:38] LABS: ALB/GLOB RATIO (SPE) 0.92 (1.39-2.23)
[2017-04-28] MEDS ORDERED: PROPOFOL 200 MG/20 ML AMP IV ONE (12:00)
[2017-04-28] MEDS ORDERED: LIDOCAINE HCL 1% PF 5 ML SYRINGE OTHER ONE (12:00)
[2017-04-28] MEDS ORDERED: PEG (High)/E-LYTE SOLN 4000 ML BTL PO ONE ×2 (13:00→14:15)
--- NOTE | 2017-04-28 13:06 | PD.PROCEDR ---
GI Procedure PROCEDURE PERFORMED EGD with biopsy followed by a colonoscopy which was incomplete due to poor prep INDICATION FOR PROCEDURE Anemia, abdominal pain PROCEDURE: The procedure, risks and benefits were discussed with Ms. Jackson and informed consent was obtained. Anesthesia sedated her with Diprivan. She was placed in the left lateral decubitus position. EGD: The Pentax videoscope was introduced through the oropharynx and advanced to the second portion of the duodenum under direct visualization. Retroflexion was performed in the stomach. FINDINGS: The esophagus there was distal esophageal mucosal erythema suggestive of reflux esophagitis this was biopsied otherwise the esophagus was unremarkable The stomach there was a small hiatal hernia there was patchy erythema in the antrum but no ulcerations no erosions no blood or bleeding the rest of the stomach was unremarkable antral biopsies were taken for further evaluation The duodenum this was normal Colonoscopy: The Pentax videoscope was introduced through the rectum and advanced to cecum where the ileocecal valve and appendiceal orifice were identified. Retroflexion was performed in the rectum. Colonic prep was poor and the procedure was incomplete FINDINGS: Colonic withdrawal time greater than 6 minutes. As the scope was slowly withdrawn colonic mucosa was carefully inspected the prep was poor and the procedure was incomplete due to poor prep there were a few diverticuli noted in the sigmoid otherwise colonic mucosa was unremarkable ESTIMATED BLOOD LOSS: None SPECIMENS REMOVED: Gastric biopsies and esophageal biopsies COMPLICATIONS: None IMPRESSION: Reflux esophagitis Hiatal hernia Gastritis Diverticulosis Incomplete colonoscopy PLAN: Await biopsies PPI and reflux precautions Repeat colonoscopy in Valente Phipps MD Apr 28, 2017 1:06 pm
--- NOTE | 2017-04-28 14:03 | RADRPT ---
EXAM DATE/TIME: 04/28/2017 09:21 [facility] COMPARISON: No previous studies available for comparison. INDICATIONS : Patient with a history of renal disease. MEDICAL HISTORY : HTN Diabetic CHF Renal disease SURGICAL HISTORY : Both knees replaced Toe amputation, diabetic ulcer ENCOUNTER: Initial ACUITY: 1 day PAIN SCORE: 0/10 FLUORO TIME: 0.6 minutes IMAGE SERIES: 1 SEDATION TIME: 30 minutes ACCESS: Right internal jugular vein SEDATION: 1.) 1.5 mg midazolam (Versed) IV 2.) 100 mcg fentanyl (Sublimaze) IV Prophylactic antibiotics were administered with appropriate pre-procedure timing. Vancomycin within 2 hours of procedure, Ancef (or alternative) within 1 hour of procedure. DEVICE: 1. 15 Frisian dual lumen 23 cm Haider II Plus catheter PROCEDURE : 1. Ultrasound-guided venipuncture. 2. PermaCath placement. 3. Conscious sedation with continuous EKG and oximetry monitoring. The risks, benefits and alternatives to the procedure were explained and verbal and written consent w as obtained. The site was prepped in sterile fashion. Full sterile technique was used, including ca p, mask, sterile gloves and gown and a large sterile sheet. Hand hygiene and 2% chlorhexidine and/or betadine/alcohol prep was utilized per protocol for cutaneous antisepsis. Sterile gel and sterile p robe cover were utilized for ultrasound guidance. The skin and subcutaneous tissues were infiltrated with local anesthetic solution. With ultrasound and fluoroscopic guidance a dermatotomy was created over the prescribed vein. A micr opuncture set was used to access the targeted vein and serial dilatation was performed to accept the prescribed length catheter. A subcutaneous tunnel was created in a retrograde fashion the catheter w as pulled through the tunnel. The catheter was flushed and assembled and locked with heparin. The c atheter was sutured in place. Conscious sedation was performed with the prescribed dosages and duration as above in the presence of an independent trained radiology nurse to assist in the monitoring of the patient. EKG and oximetry remained stable throughout the procedure. The patient tolerated the procedure well and there were n o complications. The patient was sent to post anesthesia recovery in stable condition. CONCLUSION: Uncomplicated PermaCath placement as above. Mark Maravilla MD on April 28, 2017 at 14:02 Board Certified Radiologist. This report was verified electronically.
--- NOTE | 2017-04-28 14:23 | PD.PROCEDR ---
GI Procedure PROCEDURE PERFORMED An incomplete EGD due to food residue followed by an incomplete colonoscopy due to poor prep with biopsies INDICATION FOR PROCEDURE Diarrhea, anemia PROCEDURE: The procedure, risks and benefits were discussed with Ms. Jackson and informed consent was obtained. Anesthesia sedated her with Diprivan. She was placed in the left lateral decubitus position. EGD: The Pentax videoscope was introduced through the oropharynx and advanced to the second portion of the duodenum under direct visualization. Retroflexion was performed in the stomach. FINDINGS: The esophagus this appeared to be unremarkable with normal limits The stomach this was filled with food and as such I was unable to find the antrum and I hasten to pull out the scope so as not to cause any abdominal distention or vomiting so as not to cause aspiration what little of the gastric mucosa that was seen was unremarkable The duodenum was not seen Colonoscopy: The Pentax videoscope was introduced through the rectum and advanced to cecum where the ileocecal valve and appendiceal orifice were identified. Retroflexion was performed in the rectum. Colonic prep was poor FINDINGS: Colonic withdrawal time greater than 6 minutes. As the scope was slowly withdrawn colonic mucosa was carefully inspected the examination was limited by poor prep but was unremarkable random biopsies were taken from the ascending and descending colon ESTIMATED BLOOD LOSS: None SPECIMENS REMOVED: A ascending and descending colon biopsies COMPLICATIONS: None IMPRESSION: Probable underlying gastroparesis with food residue noted in the stomach Incomplete evaluation PLAN: Repeat EGD with colonoscopy tomorrow We shall give further prepping and erythromycin so as to empty out the stomach Await biopsies Continue current supportive care Valente Avelar MD Apr 28, 2017 2:23 pm
[2017-04-28] MEDS ORDERED: METOCLOPRAMIDE HCL 10 MG/2 ML VIAL IM PRN (14:30)
--- NOTE | 2017-04-28 14:32 | PD.CAR.PN ---
CVT Progress Note Subjective/Hospital Course: Referral received Patient with end-stage renal failure and need for dialysis permanent access Will do venous mapping and then proceed with an AV fistula depending on the anatomic considerations Thanks Lauren Objective: Vital Signs Date Time Temp Pulse Resp B/P (MAP) Pulse Ox O2 Delivery O2 Flow Rate FiO2 04/28/17 13:45 96.2 62 18 150/85 (106) 94 04/28/17 11:29 63 16 153/85 (107) 94 04/28/17 11:00 63 16 156/85 (108) 93 04/28/17 10:30 63 18 159/92 (114) 91 04/28/17 10:15 97.6 65 16 155/85 (108) 92 04/28/17 07:51 96.0 65 18 163/80 (107) 95 04/28/17 04:40 96.7 63 18 133/75 (94) 97 04/28/17 00:06 96.7 60 17 140/79 (99) 98 04/27/17 21:41 21 04/27/17 21:18 96.7 60 17 140/80 (100) 97 Labs: Laboratory Tests Test 04/28/17 03:28 Result Diagram: 04/27/17 0528 04/27/17 0528 (1) Hypertensive heart and chronic kidney disease with heart failure Plan: defer to nephrology. LVEF 40-45% with LVH (2) CKD (chronic kidney disease), stage V (3) Loculated pleural effusion Plan: consult Dr. Ben Valero (4) Iron deficiency anemia Plan: Cardiology cleared for EGDE/ colonoscopy Yvon Snyder MD Apr 28, 2017 14:32
--- NOTE | 2017-04-28 14:56 | HHI.PR ---
Objective Vitals Vital Signs Date Time Temp Pulse Resp B/P (MAP) Pulse Ox O2 Delivery O2 Flow Rate FiO2 04/28/17 13:45 96.2 62 18 150/85 (106) 94 04/28/17 11:29 63 16 153/85 (107) 94 04/28/17 11:00 63 16 156/85 (108) 93 04/28/17 10:30 63 18 159/92 (114) 91 04/28/17 10:15 97.6 65 16 155/85 (108) 92 04/28/17 07:51 96.0 65 18 163/80 (107) 95 04/28/17 04:40 96.7 63 18 133/75 (94) 97 04/28/17 00:06 96.7 60 17 140/79 (99) 98 04/27/17 21:41 21 04/27/17 21:18 96.7 60 17 140/80 (100) 97 I/O 04/27/17 04/27/17 04/27/17 04/28/17 04/28/17 04/28/17 07:00 15:00 23:00 07:00 15:00 23:00 Intake Total 480 ml 580 ml 0 ml 200 ml Balance 480 ml 580 ml 0 ml 200 ml Intake Oral 480 ml 480 ml 0 ml IV Total 100 ml Other 200 ml # Voids 1 3 3 2 1 # Bowel Movements 0 2 3 Result Diagram: 04/27/1752704/27/17527 Objective Remarks GENERAL: Alert, oriented 3, NAD. SKIN: Warm and dry. HEAD: Normocephalic. EYES: No scleral icterus. No injection or drainage. NECK: Supple, trachea midline. No JVD or lymphadenopathy. CARDIOVASCULAR: Regular rate and rhythm without murmurs, gallops, or rubs. RESPIRATORY: Breath sounds equal bilaterally. No accessory muscle use. GASTROINTESTINAL: Abdomen soft, non-tender, nondistended. MUSCULOSKELETAL: No cyanosis, or edema. BACK: Nontender without obvious deformity. No CVA tenderness. Procedures Ultrasound-guided thoracentesis 04/26/2017. Echocardiogram 04/26/2017 Mildly dilated left ventricle. The left ventricular systolic function is moderately reduced with an estimated ejection fraction in the range of 40-45%. Mild LVH. The left atrial size is oufectlb-vy-mkolaurv dilated. The right atrial size is lnyh-di-yalpcuwrqf dilated. Mild mitral valve regurgitation. Aortic valve sclerosis is present. There is mild to moderate tricuspid valve regurgitation. The estimated pulmonary arterial pressure is 64 mmHg. Mild pulmonary valve regurgitation. A right sided pleural effusion is present. A large left sided pleural effusion is noted. A/P Problem List: (1) Bilateral pleural effusion ICD Code: J90 - Pleural effusion, not elsewhere classified (2) OSMANY (acute kidney injury) ICD Code: N17.9 - Acute kidney failure, unspecified (3) Diabetes mellitus, type 2 ICD Code: E11.9 - Type 2 diabetes mellitus without complications (4) CKD (chronic kidney disease), stage V ICD Code: N18.5 - Chronic kidney disease, stage 5 (5) Hypertension ICD Code: I10 - Essential (primary) hypertension Assessment and Plan Mr. Moseley is a 51-year-old male with a history of hypertension, CHF, diabetes mellitus who presented to the hospital due to elevated BNP. He was sent to the hospital by his primary care physician. He reports shortness of breath especially on exertion and orthopnea for the last 3-5 months. In the hospital workup indicated bilateral pleural effusion and patient underwent thoracentesis on 04/26/2017. He also reported multiple episodes of diarrhea, dysphagia as well as unintentional weight loss. Nephrology was consulted due to acute on chronic kidney disease. GI was consulted due to diarrhea as well as dysphagia. -Bilateral pleural effusion -Likely due to acute on chronic kidney disease. -Possibly also due to systolic heart failure. Echo shows ejection fraction 40-45%. -Status post thoracentesis. Patient is currently on Lasix 40 mg IV twice daily. -Pleural fluid consistent with transudative fluid -Acute systolic congestive heart failure exacerbation -Continue Lasix IV. Continue carvedilol 12.5 mg p.o. twice daily. -Hypertension -continue carvedilol, hydralazine 25 mg p.o. every 8 hours. -Acute kidney injury -Chronic kidney disease stage V -Acute kidney injury is possibly due to diarrhea, dysphagia -Surgical Technology Instructor loosely following. -Creatinine 5.32 today. EGFR 11. -Patient may need transient dialysis at least. -Diabetes mellitus -We will continue sliding scale insulin. If needed we will consider long- acting insulin as well. Full code. Heparin subcutaneous. Problem Qualifiers (1) Hypertension: Qualified Codes: I10 - Essential (primary) hypertension Suzanne Coates DO Apr 28, 2017 14:55
--- NOTE | 2017-04-28 15:08 | HHI.NPPN ---
Subjective History of Present Illness 51 year old with IDDM, CKD stage 5, anemia, Sec [facility] Review of Systems General Constitutional: Fatigue Cardiovascular Cardiac: Edema Objective Data Data 04/28/17 04/29/17 19:00 07:00 Intake Total 200 ml Balance 200 ml Other 200 ml # Voids 1 Vital Signs Date Time Temp Pulse Resp B/P (MAP) Pulse Ox O2 Delivery O2 Flow Rate FiO2 04/28/17 13:45 96.2 62 18 150/85 (106) 94 04/28/17 11:29 63 16 153/85 (107) 94 04/28/17 11:00 63 16 156/85 (108) 93 04/28/17 10:30 63 18 159/92 (114) 91 04/28/17 10:15 97.6 65 16 155/85 (108) 92 04/28/17 07:51 96.0 65 18 163/80 (107) 95 04/28/17 04:40 96.7 63 18 133/75 (94) 97 04/28/17 00:06 96.7 60 17 140/79 (99) 98 04/27/17 21:41 21 04/27/17 21:18 96.7 60 17 140/80 (100) 97 -: 04/27/17 0528 04/27/17 0528 Physical Exam General Appearance: Well Developed, Well Nourished Neck Neck Exam: Neck Supple Pulmonary Resp Exam: Clear Bilaterally, Breath Sounds Equal Gastrointestinal/Abdomen GI Exam: Soft, Non-Tender, Bowel Sounds Present Extremeties Extremities Exam: Moderate Edema, Pitting Edema Assessment/Plan Problem List: (1) Acute renal failure ICD Codes: N17.9 - Acute kidney failure, unspecified Plan: Patient likely has advanced diabetic nephropathy Patient has permacath and seen during hemodialysis he is tolerating it well ultrafiltration about 1-1.5 L as tolerated AVF needed explained Hep C positive hep C RNA pending C3-C4 normal CHAD neg on Lasix 40 mg IV every 12 for Colonoscopy (2) CKD (chronic kidney disease), stage V ICD Codes: N18.5 - Chronic kidney disease, stage 5 Plan: dialysis proceeding noted consult Dr. Arevalo for Fistula (3) Diabetes ICD Codes: E11.9 - Type 2 diabetes mellitus without complications Status: Chronic Plan: Complications including renal failure (4) Hypertension ICD Codes: I10 - Essential (primary) hypertension Plan: Continue to monitor progress (5) Anemia ICD Codes: D64.9 - Anemia, unspecified Plan: Continue to monitor on Procrit Problem Qualifiers (1) Diabetes: (2) Hypertension: Qualified Codes: I10 - Essential (primary) hypertension Jeremy Light MD Apr 28, 2017 15:08
[2017-04-28] MEDS: HEPARIN SODIUM - IV 10,000 UNITS/10 ML VIAL PRN (16:11)
[2017-04-28] MEDS: EPOETIN ALFA 10,000 UNITS/ML VIAL IV PUSH PRN (16:12)
[2017-04-28] MEDS: GENTAMICIN SULFATE 20 MG/2 ML VIAL OTHER PRN (16:13)
--- NOTE | 2017-04-28 20:13 | RADRPT ---
EXAM DATE/TIME: 04/28/2017 17:55 [facility] COMPARISON: No previous studies available for comparison. INDICATIONS : Pre op AV fistula. MEDICAL HISTORY : Congestive heart failure. Hypertension. Renal insufficiency, chronic. Diabetes. Measles. Anemia. SURGICAL HISTORY : Bilateral knee surgery. Toe amputation. ENCOUNTER: Initial ACUITY: 1 day PAIN SCORE: 0/10 LOCATION: Bilateral arms. FINDINGS: RIGHT UPPER EXTREMITY: There is spontaneous flow documented in the brachial, basilic, cephalic, axillary, and subclavian vei ns. The vessels are compressible and augmentation response is documented. No filling defects are se en. The flow is phasic with respiration. Direction of flow in the jugular vein is caudal. LEFT UPPER EXTREMITY: There is spontaneous flow documented in the brachial, basilic, cephalic, axillary, and subclavian vei ns. The vessels are compressible and augmentation response is documented. No filling defects are se en. The flow is phasic with respiration. Direction of flow in the jugular vein is caudal. CONCLUSION: No evidence of upper extremity DVT. Leif Espinosa MD on April 28, 2017 at 20:11 Board Certified Radiologist. This report was verified electronically.
--- NOTE | 2017-04-28 21:04 | HHI.PR ---
Addendum to Inpatient Note Additional Information Patient was in procedure. Not seen today. Reviewed chart, farm consultant notes. Suzanne Coates DO Apr 28, 2017 21:04
--- NOTE | 2017-04-28 22:17 | RADRPT ---
EXAM DATE/TIME: 04/28/2017 18:28 [facility] COMPARISON: No previous studies available for comparison. INDICATIONS : Pre op AV fistula. MEDICAL HISTORY : Congestive heart failure. Hypertension. Renal insufficiency, chronic. Diabetes. Measles. Anemia. SURGICAL HISTORY : Bilateral knee surgery. Toe amputation. ENCOUNTER: Initial ACUITY: 1 day PAIN SCORE: 0/10 LOCATION: Bilateral arms. CEPHALIC: ORIGIN: Right 3 mm Left 3 mm MID-ARM: Right 2 mm Left 3 mm ELBOW: Right 2 mm Left 3 mm FOREARM: Right 2 mm Left 3 mm WRIST: Right 2 mm Left 3 mm BASILIC: ORIGIN: Right 5 mm Left 6 mm MID-ARM: Right 3 mm Left 5 mm ELBOW: Right 1 mm Left 3 mm ARTERIES: BRACHIAL: Right 5 mm Left 6 mm ULNAR: Right 2 mm Left 3 mm RADIAL: Right 2 mm Left 3 mm VEINS: RADIAL: Right 2 mm Left 2 mm ULNAR: Right 2 mm Left 2 mm FINDINGS: The venous system of the upper extremities are patent by color Doppler imaging. Measurements of the arm veins (in mm) are listed above. CONCLUSION: Bilateral upper extremity venous mapping as described above. Leif Espinosa MD on April 28, 2017 at 22:15 Board Certified Radiologist. This report was verified electronically.
[2017-04-29] VITALS (7 sets, daily range): BP systolic 120–164; BP diastolic 56–83; PULSE 69–79; RESP 18–19; TEMP 96.7–97.8; O2SAT 96–98
[2017-04-29] MEDS: hydrALAZINE HCL 25 MG TAB PO SCH ×3 (05:47→20:09)
[2017-04-29 06:39] LABS: HEMATOCRIT 23.4 % (39.0-51.0); HEMOGLOBIN 8.1 GM/DL (13.0-17.0); MEAN CELL VOLUME 87.5 FL (80.0-100.0); MEAN CORPUSCULAR HEMOGLOBIN 30.2 PG (27.0-34.0); MEAN CORPUSCULAR HGB CONC 34.5 % (32.0-36.0); MEAN PLATELET VOLUME 7.5 FL (7.0-11.0); PLATELET COUNT 163 TH/MM3 (150-450); RED BLOOD COUNT 2.67 MIL/MM3 (4.50-5.90); WHITE BLOOD COUNT 5.6 TH/MM3 (4.0-11.0)
[2017-04-29 07:24] LABS: ALBUMIN 2.1 GM/DL (3.4-5.0); ALKALINE PHOSPHATASE 118 U/L (45-117); ALT (GPT) 16 U/L (12-78); AST (GOT) 17 U/L (15-37); BICARBONATE 24.5 MEQ/L (21.0-32.0); BLOOD UREA NITROGEN 70 MG/DL (7-18); CALCIUM 8.4 MG/DL (8.5-10.1); CHLORIDE 103 MEQ/L (98-107); CREATININE 4.42 MG/DL (0.60-1.30); GLOMERULAR FILTRATION RATE 14 ML/MIN (>89); GLUCOSE,RANDOM 69 MG/DL (74-106); SODIUM (NA) 141 MEQ/L (136-145); TOTAL BILIRUBIN ADULT 0.4 MG/DL (0.2-1.0); TOTAL PROTEIN 5.8 GM/DL (6.4-8.2)
[2017-04-29] MEDS: INSULIN ASPART SUPPLEMENTAL SCALE SQ SCH ×3 (08:00→20:10)
--- NOTE | 2017-04-29 08:05 | PD.CAR.PN ---
CVT Progress Note Subjective/Hospital Course: pt not in room 05/25, 05/26 Ct chest was ordered / will see today eval for left vats and decortication Objective: Vital Signs Date Time Temp Pulse Resp B/P (MAP) Pulse Ox O2 Delivery O2 Flow Rate FiO2 04/29/17 03:56 96.9 76 18 126/58 (80) 97 04/28/17 23:26 96.9 68 17 134/67 (89) 96 04/28/17 21:21 95 04/28/17 19:53 96.0 66 17 153/82 (105) 95 04/28/17 17:15 96.0 67 18 178/80 (112) 95 04/28/17 13:45 96.2 62 18 150/85 (106) 94 04/28/17 11:29 63 16 153/85 (107) 94 04/28/17 11:00 63 16 156/85 (108) 93 04/28/17 10:30 63 18 159/92 (114) 91 04/28/17 10:15 97.6 65 16 155/85 (108) 92 Labs: Laboratory Tests Test 04/29/17 06:10 White Blood Count 5.6 TH/MM3 (4.0-11.0) Red Blood Count 2.67 MIL/MM3 (4.50-5.90) Hemoglobin 8.1 GM/DL (13.0-17.0) Hematocrit 23.4 % (39.0-51.0) Mean Corpuscular Volume 87.5 FL (80.0-100.0) Mean Corpuscular Hemoglobin 30.2 PG (27.0-34.0) Mean Corpuscular Hemoglobin Concent 34.5 % (32.0-36.0) Red Cell Distribution Width 15.0 % (11.6-17.2) Platelet Count 163 TH/MM3 (150-450) Mean Platelet Volume 7.5 FL (7.0-11.0) Blood Urea Nitrogen 70 MG/DL (7-18) Creatinine 4.42 MG/DL (0.60-1.30) Random Glucose 69 MG/DL (74-106) Total Protein 5.8 GM/DL (6.4-8.2) Albumin 2.1 GM/DL (3.4-5.0) Calcium Level 8.4 MG/DL (8.5-10.1) Alkaline Phosphatase 118 U/L (45-117) Aspartate Amino Transf (AST/SGOT) 17 U/L (15-37) Alanine Aminotransferase (ALT/SGPT) 16 U/L (12-78) Total Bilirubin 0.4 MG/DL (0.2-1.0) Sodium Level 141 MEQ/L (136-145) Potassium Level 4.8 MEQ/L (3.5-5.1) Chloride Level 103 MEQ/L (98-107) Carbon Dioxide Level 24.5 MEQ/L (21.0-32.0) Anion Gap 14 MEQ/L (5-15) Estimat Glomerular Filtration Rate 14 ML/MIN (>89) Result Diagram: 04/29/17 0610 04/29/17 0610 (1) Hypertensive heart and chronic kidney disease with heart failure Plan: defer to nephrology. LVEF 40-45% with LVH (2) CKD (chronic kidney disease), stage V (3) Loculated pleural effusion Plan: consult Dr. Ben Valero (4) Iron deficiency anemia Plan: Cardiology cleared for EGDE/ colonoscopy Latosha Topete Apr 29, 2017 08:05
[2017-04-29] MEDS: CARVEDILOL 12.5 MG TAB PO SCH ×2 (09:00→20:09)
[2017-04-29] MEDS: FUROSEMIDE 40 MG/4 ML VIAL IV PUSH SCH ×2 (09:00→18:02)
[2017-04-29] MEDS: HEPARIN SODIUM - SQ 10,000 UNITS/ML VIAL SQ SCH ×2 (09:00→20:10)
[2017-04-29] MEDS: SODIUM CHLORIDE 0.9% FLUSH 10 ML FLUSH IV FLUSH SCH ×2 (09:00→20:10)
[2017-04-29] MEDS: PANTOPRAZOLE SOD 40 MG DELAYED RELEASE TAB PO SCH (09:00)
--- NOTE | 2017-04-29 10:11 | HHI.NPPN ---
Subjective History of Present Illness 51 year old with IDDM, CKD stage 5, anemia, [facility] Review of Systems General Constitutional: Fatigue Cardiovascular Cardiac: Edema Objective Data Data Vital Signs Date Time Temp Pulse Resp B/P (MAP) Pulse Ox O2 Delivery O2 Flow Rate FiO2 04/29/17 09:41 96 04/29/17 08:00 96.8 70 19 164/83 (110) 96 04/29/17 03:56 96.9 76 18 126/58 (80) 97 04/28/17 23:26 96.9 68 17 134/67 (89) 96 04/28/17 21:21 95 04/28/17 19:53 96.0 66 17 153/82 (105) 95 04/28/17 17:15 96.0 67 18 178/80 (112) 95 04/28/17 13:45 96.2 62 18 150/85 (106) 94 04/28/17 11:29 63 16 153/85 (107) 94 04/28/17 11:00 63 16 156/85 (108) 93 04/28/17 10:30 63 18 159/92 (114) 91 04/28/17 10:15 97.6 65 16 155/85 (108) 92 -: 04/29/17 0610 04/29/17 0610 Physical Exam General Appearance: Well Developed, Well Nourished Neck Neck Exam: Neck Supple Pulmonary Resp Exam: Clear Bilaterally, Decreased Bases Gastrointestinal/Abdomen GI Exam: Soft, Non-Tender, Bowel Sounds Present Extremeties Extremities Exam: Moderate Edema, Pitting Edema Assessment/Plan Problem List: (1) Acute renal failure ICD Codes: N17.9 - Acute kidney failure, unspecified Plan: Patient likely has advanced diabetic nephropathy Patient has permacath and seen during hemodialysis he is tolerating it well ultrafiltration about 2 L as tolerated AVF needed explained TTS schedule as going for decortication Left Tuesday Hep C positive hep C RNA pending C3-C4 normal CHAD neg may change Lasix 40 mg to PO PhosLo 667 mg tid Nephrocaps daily (2) CKD (chronic kidney disease), stage V ICD Codes: N18.5 - Chronic kidney disease, stage 5 Plan: dialysis proceeding noted consult Dr. Aguilar for Fistula (3) Diabetes ICD Codes: E11.9 - Type 2 diabetes mellitus without complications Status: Chronic Plan: Complications including renal failure (4) Hypertension ICD Codes: I10 - Essential (primary) hypertension Plan: Continue to monitor progress (5) Anemia ICD Codes: D64.9 - Anemia, unspecified Plan: Continue to monitor on Procrit Problem Qualifiers (1) Diabetes: (2) Hypertension: Qualified Codes: I10 - Essential (primary) hypertension Jeremy Light MD Apr 29, 2017 10:11
[2017-04-29] MEDS: VITAMIN B CMPLX/VITC/FOLIC AC CAP PO SCH (10:15)
[2017-04-29] MEDS: GENTAMICIN SULFATE 20 MG/2 ML VIAL OTHER PRN (11:35)
[2017-04-29] MEDS: HEPARIN SODIUM - IV 10,000 UNITS/10 ML VIAL PRN (11:35)
[2017-04-29] MEDS ORDERED: LIDOCAINE HCL 1% PF 5 ML SYRINGE OTHER ONE (12:00)
[2017-04-29] MEDS ORDERED: PROPOFOL 200 MG/20 ML AMP IV ONE (12:00)
[2017-04-29] MEDS: CALCIUM ACETATE 667 MG CAP PO SCH ×2 (12:50→18:02)
[2017-04-29] MEDS ORDERED: DO NOT ADM ANY ANTICOAGULANT DRUGS PRN (15:27)
[2017-04-29] MEDS ORDERED: BUPIVACAINE HCL PF 0.5% 30 ML VIAL ONE (16:48)
[2017-04-29] MEDS ORDERED: HEPARIN SODIUM - SQ 10,000 UNITS/ML VIAL ONE (16:49)
--- NOTE | 2017-04-29 18:31 | PD.PROCEDR ---
GI Procedure PROCEDURE PERFORMED Upper endoscopy, colonoscopy INDICATION FOR PROCEDURE Anemia PROCEDURE: The procedure, risks and benefits were discussed with Mr. Moseley and informed consent was obtained. Anesthesia sedated him with Diprivan. He was placed in the left lateral decubitus position. EGD: The Pentax videoscope was introduced through the oropharynx and advanced to the second portion of the duodenum under direct visualization. Retroflexion was performed in the stomach. Colonoscopy: The Pentax videoscope was introduced through the rectum and advanced to cecum. Retroflexion was performed in the rectum. Colonic prep was fair ESTIMATED BLOOD LOSS: None SPECIMENS REMOVED: None COMPLICATIONS: None IMPRESSION: Normal upper endoscopy Normal colonoscopy Most likely the anemia is related to chronic disease of kidneys and heart If any sign of active bleeding capsule endoscopy can be done PLAN: Capsule endoscopy as an outpatient if any anemia persist Patient also has hepatitis C antibody were waiting for the results of the RNA If this is positive patient can be followed as an outpatient for evaluation and treatment for hepatitis C Yuliet Matt MD Apr 29, 2017 18:31
--- NOTE | 2017-04-29 18:33 | HHI.PR ---
Addendum to Inpatient Note Additional Information Attempted to see patient in the afternoon. He was in procedure. Discussed with patient's . He is doing well. No acute concerns. Will see patient in the AM tomorrow. Suzanne Coates DO Apr 29, 2017 18:33
--- NOTE | 2017-04-29 18:33 | HHI.GIFU ---
Subjective Remarks Patient was seen and examined, laying in bed comfortably, no new complaint, he took another prep since the prep was poor yesterday Objective Vitals I&O Vital Signs Date Time Temp Pulse Resp B/P (MAP) Pulse Ox O2 Delivery O2 Flow Rate FiO2 04/29/17 15:48 72 16 158/80 (106) 94 Nasal Cannula 2 04/29/17 15:43 71 16 157/76 (103) 94 Nasal Cannula 2 04/29/17 15:20 98.2 70 16 161/86 (111) 95 Nasal Cannula 2 04/29/17 09:41 96 04/29/17 08:00 96.8 70 19 164/83 (110) 96 04/29/17 03:56 96.9 76 18 126/58 (80) 97 04/28/17 23:26 96.9 68 17 134/67 (89) 96 04/28/17 21:21 95 04/28/17 19:53 96.0 66 17 153/82 (105) 95 I/O 04/28/17 04/28/17 04/28/17 04/29/17 04/29/17 04/29/17 07:00 15:00 23:00 07:00 15:00 23:00 Intake Total 0 ml 200 ml 480 ml 0 ml 500 ml Output Total 2000 ml 2000 ml Balance 0 ml 200 ml -1520 ml 0 ml -2000 ml 500 ml Intake Oral 0 ml 480 ml 0 ml Other 200 ml 500 ml Hemodialysis 2000 ml 2000 ml # Voids 2 1 4 4 # Bowel Movements 3 3 5 Laboratory Laboratory Tests Test 04/29/17 06:10 White Blood Count 5.6 Red Blood Count 2.67 Hemoglobin 8.1 Hematocrit 23.4 Mean Corpuscular Volume 87.5 Mean Corpuscular Hemoglobin 30.2 Mean Corpuscular Hemoglobin Concent 34.5 Red Cell Distribution Width 15.0 Platelet Count 163 Mean Platelet Volume 7.5 Blood Urea Nitrogen 70 Creatinine 4.42 Random Glucose 69 Total Protein 5.8 Albumin 2.1 Calcium Level 8.4 Alkaline Phosphatase 118 Aspartate Amino Transf (AST/SGOT) 17 Alanine Aminotransferase (ALT/SGPT) 16 Total Bilirubin 0.4 Sodium Level 141 Potassium Level 4.8 Chloride Level 103 Carbon Dioxide Level 24.5 Anion Gap 14 Estimat Glomerular Filtration Rate 14 Date/Time Source Procedure Growth Status 04/26/17 13:50 Fluid Pleural Fluid Gram Stain - Final Complete 04/26/17 13:50 Fluid Pleural Fluid Body Fluid Culture - Final NO GROWTH IN 72 HRS.--AEROBICALLY OR ... Complete 04/26/17 22:15 Stool Stool Cryptosporidium Exam - Final NEGATIVE - NO CRYPTOSPORIDIUM ANTIGEN... Complete 04/26/17 22:15 Stool Stool Giardia Antigen (ELIO) - Final NEGATIVE - NO GIARDIA ANTIGEN DETECTE... Complete 04/26/17 22:15 Stool Stool Stool Occult Blood (ELIO) - Final HEMOCCULT NEGATIVE Complete Physical Exam HEENT: PERRL; normocephalic; atraumatic; no jaundice. CHEST: CTA CARDIAC: RRR ABDOMEN: Soft, nondistended, nontender; no hepatosplenomegaly; bowel sounds are present in all four quadrants. EXTREMITIES: No clubbing, cyanosis, + BLE edema, bandages to BLE dry and intact. SKIN: Normal; no rash; no jaundice. MEASUREMENT OPERATOR: No focal deficits; alert and oriented times three. Assessment and Plan Plan Patient was seen and examined, patient had upper endoscopy and colonoscopy today also hepatitis C viral load pending since his hepatitis C antibody was positive IMPRESSION: Normal upper endoscopy Normal colonoscopy Most likely the anemia is related to chronic disease of kidneys and heart If any sign of active bleeding capsule endoscopy can be done PLAN: Capsule endoscopy as an outpatient if any anemia persist Patient also has hepatitis C antibody were waiting for the results of the RNA If this is positive patient can be followed as an outpatient for evaluation and treatment for hepatitis C Follow-up as an outpatient with GI of choice in his local town Yuliet Matt MD Apr 29, 2017 18:32
--- NOTE | 2017-04-29 19:19 | PD.CAR.PN ---
CVT Progress Note Subjective/Hospital Course: pt not in room 05/25, 05/26 Ct chest was ordered / will see today eval for left vats and decortication 04/29/2017 Patient initially scheduled for AV fistula right arm but patient does have an IV in his antecubital vein and in cephalic vein just above the wrist. Considering the patient's left-handed right arm was to be used for the AV fistula but now have to wait until these vessels heal up. In face of pending thoracoscopy /thoracotomy and decortication of the lung will wait till that is all done and then will deal with the AV fistula This will allow for patient also to heal the right arm and make the vein usable. Objective: Vital Signs Date Time Temp Pulse Resp B/P (MAP) Pulse Ox O2 Delivery O2 Flow Rate FiO2 04/29/17 15:48 72 16 158/80 (106) 94 Nasal Cannula 2 04/29/17 15:43 71 16 157/76 (103) 94 Nasal Cannula 2 04/29/17 15:20 98.2 70 16 161/86 (111) 95 Nasal Cannula 2 04/29/17 09:41 96 04/29/17 08:00 96.8 70 19 164/83 (110) 96 04/29/17 03:56 96.9 76 18 126/58 (80) 97 04/28/17 23:26 96.9 68 17 134/67 (89) 96 04/28/17 21:21 95 04/28/17 19:53 96.0 66 17 153/82 (105) 95 Result Diagram: 04/29/17 0610 04/29/17 0610 (1) Hypertensive heart and chronic kidney disease with heart failure Plan: defer to nephrology. LVEF 40-45% with LVH (2) CKD (chronic kidney disease), stage V (3) Loculated pleural effusion Plan: consult Dr. Ben Valero (4) Iron deficiency anemia Plan: Cardiology cleared for EGDE/ colonoscopy Yvon Snyder MD Apr 29, 2017 19:19
--- NOTE | 2017-04-29 19:30 | MB ---
cc: Latosha Topete DATE OF CONSULT: 04/29/2017 HISTORY OF PRESENT ILLNESS: The patient apparently was called by his primary care physician with a BNP greater 35,000; ejection fraction approximately 40-45%, was found to have bilateral pleural effusions, underwent thoracentesis. They fabian out 1750 mL of clear yellow fluid, transudative and then apparently post x-ray showed likely residual loculated effusion. We were consulted to evaluate. The patient also had noted worsening shortness of breath when lying his side, and lower extremity edema, which has improved. He was found to have acute kidney injury with a history of chronic kidney disease. Creatinine was found to be 5.26. He has since been started on some dialysis. This is his second treatment. PAST MEDICAL AND SURGICAL HISTORY: Hypertension, diabetes mellitis, congestive heart failure, chronic kidney disease. He has also had some diarrhea off and on for the past 4 or 5 months. Incomplete EGD due to food residue and incomplete colonoscopy due to poor prep with biopsy. The findings did; however, show the esophagus to be within relatively normal limits. They were unable to appropriately do the EGD. Probable some gastroparesis. Plan was to repeat the EGD, further prepping and also with erythromycin to empty the stomach. The films have been reviewed by Dr. Ben Valero at this time. Other surgeries include knee surgery. He has had right fourth and fifth toes amputated. ALLERGIES: NO KNOWN ALLERGIES. MEDICATIONS: No current home meds. His medications at present are clonidine, Epogen, lasix, morphine, heparin subcutaneous which will need to be held preprocedure, coreg, Phoslo. FAMILY HISTORY: Positive for Alzheimers. SOCIAL HISTORY: , nonsmoker, nondrinker. REVIEW OF SYSTEMS: As above in the HPI. Other 12-systems unremarkable. PHYSICAL EXAMINATION: VITAL SIGNS: Blood pressure 160/80, heart rate of 70, afebrile, O2 sat 96 on room air. GENERAL: The patient is awake, alert, in no acute distress. HEENT: Head is normocephalic, atraumatic. Pupils equal and reactive. Oral mucosa pink and moist. NECK: Supple, no JVD. CARDIAC: Heart sounds S1, S2. Soft systolic murmur. LUNGS: Diminished in the bases, otherwise clear to auscultation. ABDOMEN: Mildly distended, positive bowel sounds. EXTREMITIES: Reveal trace edema, +1 up to the thighs. DIAGNOSTIC STUDIES: Lab work shows hemoglobin 8.1, hematocrit of 23, white cell count of 5.6, platelet count of 163. Sodium 141, potassium 4.8, BUN of 70 with a creatinine of 4.42 which is improved. AST 17, ALT 16. INR 1.2. Urinalysis unremarkable. Pleural fluid had approximately 583 WBCs. Glucose was 140. C. difficile was negative. Stool was also negative for cryptosporidium, giardia and occult blood. Pleural fluid showed no growth. IMPRESSION: This is a 51-year-old male with history of congestive heart failure, status post thoracentesis which removed 1750 mL of fluid with remaining loculated effusion which needs to be drained. Procedures, alternative and risks have been discussed by Dr. Ben Valero. Plan will be for left thoracotomy and decortication on Tuesday, 05/02. CHELSEA DiehlP MD MCKENZIE Castillo/KIYA , 03:04 PM , 07:29 PM
[2017-04-30] VITALS (9 sets, daily range): BP systolic 103–156; BP diastolic 50–90; PULSE 66–76; RESP 17–18; TEMP 96.5–98.2; O2SAT 91–98
[2017-04-30 03:10] LABS: AUTOMATED NEUTROPHIL # 4.2 TH/MM3 (1.8-7.7); BASOPHIL % 0.6 % (0.0-2.0); EOSINOPHIL # 0.1 TH/MM3 (0-0.4); EOSINOPHIL % 1.7 % (0.0-4.0); HEMATOCRIT 24.2 % (39.0-51.0); HEMOGLOBIN 8.3 GM/DL (13.0-17.0); LYMPH % 13.6 % (9.0-44.0); LYMPHOCYTE # 0.8 TH/MM3 (1.0-4.8); MEAN CELL VOLUME 87.3 FL (80.0-100.0); MEAN CORPUSCULAR HEMOGLOBIN 30.1 PG (27.0-34.0); MEAN CORPUSCULAR HGB CONC 34.4 % (32.0-36.0); MEAN PLATELET VOLUME 7.8 FL (7.0-11.0); MONO % 16.2 % (0.0-8.0); NEUT % 67.9 % (16.0-70.0); PLATELET COUNT 185 TH/MM3 (150-450); RED BLOOD COUNT 2.78 MIL/MM3 (4.50-5.90); RED CELL DISTRIBUTION WIDTH 15.2 % (11.6-17.2); WHITE BLOOD COUNT 6.2 TH/MM3 (4.0-11.0)
[2017-04-30 03:21] LABS: BICARBONATE 30.6 MEQ/L (21.0-32.0); CALCIUM 7.8 MG/DL (8.5-10.1); CREATININE 3.72 MG/DL (0.60-1.30); MAGNESIUM 1.8 MG/DL (1.5-2.5)
[2017-04-30] MEDS: hydrALAZINE HCL 25 MG TAB PO SCH ×3 (05:48→20:55)
[2017-04-30] MEDS: VITAMIN B CMPLX/VITC/FOLIC AC CAP PO SCH (09:00)
[2017-04-30] MEDS: PANTOPRAZOLE SOD 40 MG DELAYED RELEASE TAB PO SCH (09:12)
[2017-04-30] MEDS: CALCIUM ACETATE 667 MG CAP PO SCH ×3 (09:13→17:56)
[2017-04-30] MEDS: CARVEDILOL 12.5 MG TAB PO SCH ×2 (09:13→20:55)
[2017-04-30] MEDS: HEPARIN SODIUM - SQ 10,000 UNITS/ML VIAL SQ SCH ×2 (09:13→20:56)
[2017-04-30] MEDS: FUROSEMIDE 40 MG/4 ML VIAL IV PUSH SCH ×2 (09:13→17:53)
[2017-04-30] MEDS: SODIUM CHLORIDE 0.9% FLUSH 10 ML FLUSH IV FLUSH SCH ×2 (09:14→20:56)
[2017-04-30] MEDS: INSULIN ASPART SUPPLEMENTAL SCALE SQ SCH ×4 (09:28→20:56)
--- NOTE | 2017-04-30 13:55 | HHI.NPPN ---
Subjective History of Present Illness 51 year old with IDDM, CKD stage 5, anemia, Sec HPTH Additional Remarks patient was seen and examined. He is comfortable. Had dialysis yesterday. He will have left thoracotomy and decortication on 05/02 Review of Systems General Constitutional: Fatigue Cardiovascular Cardiac: Edema Objective Data Data Vital Signs Date Time Temp Pulse Resp B/P (MAP) Pulse Ox O2 Delivery O2 Flow Rate FiO2 04/30/17 11:19 97.5 69 18 152/81 (104) 96 04/30/17 07:23 96.5 71 18 105/50 (68) 91 04/30/17 03:45 70 04/30/17 03:26 97.7 76 18 103/53 (70) 97 04/30/17 00:54 73 04/30/17 00:00 74 04/29/17 23:56 97.8 79 18 120/56 (77) 98 04/29/17 19:45 74 04/29/17 19:26 96.7 78 18 143/65 (91) 97 04/29/17 15:48 72 16 158/80 (106) 94 Nasal Cannula 2 04/29/17 15:43 71 16 157/76 (103) 94 Nasal Cannula 2 04/29/17 15:20 98.2 70 16 161/86 (111) 95 Nasal Cannula 2 -: 04/30/17 0222 04/30/17 0222 Physical Exam General Appearance: Well Developed, Well Nourished Neck Neck Exam: Neck Supple Pulmonary Resp Exam: Clear Bilaterally, Decreased Bases Gastrointestinal/Abdomen GI Exam: Soft, Non-Tender, Bowel Sounds Present Extremeties Extremities Exam: Moderate Edema, Pitting Edema Assessment/Plan Problem List: (1) Acute renal failure ICD Codes: N17.9 - Acute kidney failure, unspecified Plan: May have reached ESRD. Dialysis through [facility]. He is positive for Hepatitis C C3-C4 normal CHAD neg PhosLo 667 mg tid with meals. Nephrocaps daily (2) CKD (chronic kidney disease), stage V ICD Codes: N18.5 - Chronic kidney disease, stage 5 Plan: May have reached ESRD. (3) Diabetes ICD Codes: E11.9 - Type 2 diabetes mellitus without complications Status: Chronic Plan: Complications including renal failure (4) Hypertension ICD Codes: I10 - Essential (primary) hypertension Plan: Continue to monitor progress (5) Anemia ICD Codes: D64.9 - Anemia, unspecified Plan: Continue to monitor on Procrit Problem Qualifiers (1) Diabetes: (2) Hypertension: Qualified Codes: I10 - Essential (primary) hypertension Art Lazo MD Apr 30, 2017 13:54
[2017-04-30 15:52] LABS: HCV RNA PCR IU/ML LESS THAN 15 IU/mL (Not Detected)
--- NOTE | 2017-04-30 17:21 | HHI.PR ---
Subjective Remarks Follow-up for dyspnea, pleural effusion, renal failure. Patient is currently doing well. No fever, chills. Tolerating diet well. Ambulating well. Objective Vitals Vital Signs Date Time Temp Pulse Resp B/P (MAP) Pulse Ox O2 Delivery O2 Flow Rate FiO2 04/30/17 16:00 97.2 66 18 155/87 (109) 98 04/30/17 11:19 97.5 69 18 152/81 (104) 96 04/30/17 07:23 96.5 71 18 105/50 (68) 91 04/30/17 03:45 70 04/30/17 03:26 97.7 76 18 103/53 (70) 97 04/30/17 00:54 73 04/30/17 00:00 74 04/29/17 23:56 97.8 79 18 120/56 (77) 98 04/29/17 19:45 74 04/29/17 19:26 96.7 78 18 143/65 (91) 97 I/O 04/29/17 04/29/17 04/29/17 04/30/17 04/30/17 04/30/17 07:00 15:00 23:00 07:00 15:00 23:00 Intake Total 0 ml 980 ml 480 ml 720 ml Output Total 2000 ml Balance 0 ml -2000 ml 980 ml 480 ml 720 ml Intake Oral 0 ml 480 ml 480 ml 720 ml Other 500 ml Hemodialysis 2000 ml # Voids 4 0 1 2 # Bowel Movements 5 0 0 0 Result Diagram: 04/30/172 04/30/17 0222 Objective Remarks GENERAL: Alert, oriented 3, NAD. SKIN: Warm and dry. HEAD: Normocephalic. EYES: No scleral icterus. No injection or drainage. NECK: Supple, trachea midline. No JVD or lymphadenopathy. CARDIOVASCULAR: Regular rate and rhythm without murmurs, gallops, or rubs. RESPIRATORY: Breath sounds equal bilaterally. No accessory muscle use. GASTROINTESTINAL: Abdomen soft, non-tender, nondistended. MUSCULOSKELETAL: No cyanosis, or edema. BACK: Nontender without obvious deformity. No CVA tenderness. Procedures Ultrasound-guided thoracentesis 04/26/2017. Echocardiogram 04/26/2017 Mildly dilated left ventricle. The left ventricular systolic function is moderately reduced with an estimated ejection fraction in the range of 40-45%. Mild LVH. The left atrial size is wbbdbjeq-ko-pkihuuke dilated. The right atrial size is hztt-xj-umcqvteyhl dilated. Mild mitral valve regurgitation. Aortic valve sclerosis is present. There is mild to moderate tricuspid valve regurgitation. The estimated pulmonary arterial pressure is 64 mmHg. Mild pulmonary valve regurgitation. A right sided pleural effusion is present. A large left sided pleural effusion is noted. A/P Problem List: (1) Bilateral pleural effusion ICD Code: J90 - Pleural effusion, not elsewhere classified (2) OSMANY (acute kidney injury) ICD Code: N17.9 - Acute kidney failure, unspecified (3) Diabetes mellitus, type 2 ICD Code: E11.9 - Type 2 diabetes mellitus without complications (4) CKD (chronic kidney disease), stage V ICD Code: N18.5 - Chronic kidney disease, stage 5 (5) Hypertension ICD Code: I10 - Essential (primary) hypertension Assessment and Plan Mr. Moseley is a 51-year-old male with a history of hypertension, CHF, diabetes mellitus who presented to the hospital due to elevated BNP. He was sent to the hospital by his primary care physician. He reports shortness of breath especially on exertion and orthopnea for the last 3-5 months. In the hospital workup indicated bilateral pleural effusion and patient underwent thoracentesis on 04/26/2017. He also reported multiple episodes of diarrhea, dysphagia as well as unintentional weight loss. Nephrology was consulted due to acute on chronic kidney disease. GI was consulted due to diarrhea as well as dysphagia. -Bilateral pleural effusion -Likely due to acute on chronic kidney disease. -Possibly also due to systolic heart failure. Echo shows ejection fraction 40-45%. -Status post thoracentesis. Patient is currently on Lasix 40 mg IV twice daily. -Pleural fluid consistent with transudative fluid -Acute systolic congestive heart failure exacerbation -Continue Lasix IV. Continue carvedilol 12.5 mg p.o. twice daily. -Hypertension -continue carvedilol, hydralazine 25 mg p.o. every 8 hours. -Acute kidney injury -Chronic kidney disease stage V -Acute kidney injury is possibly due to diarrhea, dysphagia -Concert Manager loosely following. -Creatinine 5.32 today. EGFR 11. -Patient to undergo hemodialysis. -Diabetes mellitus -We will continue sliding scale insulin. If needed we will consider long- acting insulin as well. Full code. Heparin subcutaneous. Problem Qualifiers (1) Hypertension: Qualified Codes: I10 - Essential (primary) hypertension Suzanne Coates DO Apr 30, 2017 17:21
[2017-05-01] VITALS (7 sets, daily range): BP systolic 101–164; BP diastolic 60–91; PULSE 61–94; RESP 16–18; TEMP 96.2–97.8; O2SAT 94–99
[2017-05-01] MEDS: hydrALAZINE HCL 25 MG TAB PO SCH ×3 (06:09→21:24)
[2017-05-01] MEDS: INSULIN ASPART SUPPLEMENTAL SCALE SQ SCH ×4 (08:00→21:24)
[2017-05-01] MEDS: VITAMIN B CMPLX/VITC/FOLIC AC CAP PO SCH (09:00)
[2017-05-01] MEDS: CALCIUM ACETATE 667 MG CAP PO SCH ×3 (09:27→17:39)
[2017-05-01] MEDS: PANTOPRAZOLE SOD 40 MG DELAYED RELEASE TAB PO SCH (09:28)
[2017-05-01] MEDS: CARVEDILOL 12.5 MG TAB PO SCH ×2 (09:28→21:24)
[2017-05-01] MEDS: FUROSEMIDE 40 MG/4 ML VIAL IV PUSH SCH ×2 (09:28→17:39)
[2017-05-01] MEDS: SODIUM CHLORIDE 0.9% FLUSH 10 ML FLUSH IV FLUSH SCH ×2 (09:29→21:24)
[2017-05-01] MEDS: HEPARIN SODIUM - SQ 10,000 UNITS/ML VIAL SQ SCH ×2 (09:30→21:00)
--- NOTE | 2017-05-01 15:28 | HHI.PR ---
Subjective Remarks Follow-up for dyspnea, pleural effusion, renal failure. Doing well. No acute concerns. CV surgery is planning to do decortication surgery on 05/02/2017. Objective Vitals Vital Signs Date Time Temp Pulse Resp B/P (MAP) Pulse Ox O2 Delivery O2 Flow Rate FiO2 05/01/17 04:40 96.8 66 17 163/91 (115) 97 05/01/17 04:16 65 05/01/17 00:40 96.9 68 17 137/70 (92) 94 05/01/17 00:07 67 04/30/17 20:40 98.2 67 17 156/90 (112) 95 04/30/17 20:04 66 04/30/17 16:00 97.2 66 18 155/87 (109) 98 I/O 04/30/17 04/30/17 04/30/17 05/01/17 05/01/17 05/01/17 07:00 15:00 23:00 07:00 15:00 23:00 Intake Total 480 ml 720 ml 480 ml 360 ml Balance 480 ml 720 ml 480 ml 360 ml Intake Oral 480 ml 720 ml 480 ml 360 ml # Voids 1 2 3 2 # Bowel Movements 0 0 0 1 Result Diagram: 04/30/1722104/30/17 022 Objective Remarks GENERAL: Alert, oriented 3, NAD. SKIN: Warm and dry. HEAD: Normocephalic. EYES: No scleral icterus. No injection or drainage. NECK: Supple, trachea midline. No JVD or lymphadenopathy. CARDIOVASCULAR: Regular rate and rhythm without murmurs, gallops, or rubs. RESPIRATORY: Breath sounds equal bilaterally. No accessory muscle use. GASTROINTESTINAL: Abdomen soft, non-tender, nondistended. MUSCULOSKELETAL: No cyanosis, or edema. BACK: Nontender without obvious deformity. No CVA tenderness. Procedures Ultrasound-guided thoracentesis 04/26/2017. Echocardiogram 04/26/2017 Mildly dilated left ventricle. The left ventricular systolic function is moderately reduced with an estimated ejection fraction in the range of 40-45%. Mild LVH. The left atrial size is txxphxrl-bb-zcpezyxh dilated. The right atrial size is efab-zx-ytvpqkouow dilated. Mild mitral valve regurgitation. Aortic valve sclerosis is present. There is mild to moderate tricuspid valve regurgitation. The estimated pulmonary arterial pressure is 64 mmHg. Mild pulmonary valve regurgitation. A right sided pleural effusion is present. A large left sided pleural effusion is noted. A/P Problem List: (1) Bilateral pleural effusion ICD Code: J90 - Pleural effusion, not elsewhere classified (2) OSMANY (acute kidney injury) ICD Code: N17.9 - Acute kidney failure, unspecified (3) Diabetes mellitus, type 2 ICD Code: E11.9 - Type 2 diabetes mellitus without complications (4) CKD (chronic kidney disease), stage V ICD Code: N18.5 - Chronic kidney disease, stage 5 (5) Hypertension ICD Code: I10 - Essential (primary) hypertension Assessment and Plan Mr. Moseley is a 51-year-old male with a history of hypertension, CHF, diabetes mellitus who presented to the hospital due to elevated BNP. He was sent to the hospital by his primary care physician. He reports shortness of breath especially on exertion and orthopnea for the last 3-5 months. In the hospital workup indicated bilateral pleural effusion and patient underwent thoracentesis on 04/26/2017. He also reported multiple episodes of diarrhea, dysphagia as well as unintentional weight loss. Nephrology was consulted due to acute on chronic kidney disease. GI was consulted due to diarrhea as well as dysphagia. -Bilateral pleural effusion -Likely due to acute on chronic kidney disease. -Possibly also due to systolic heart failure. Echo shows ejection fraction 40-45%. -Status post thoracentesis. Patient is currently on Lasix 40 mg IV twice daily. -Pleural fluid consistent with transudative fluid -Decortication surgery by CV surgery on 05/02/2017. -Acute systolic congestive heart failure exacerbation -Continue Lasix IV. Continue carvedilol 12.5 mg p.o. twice daily. -Hypertension -continue carvedilol, hydralazine 25 mg p.o. every 8 hours. -Acute kidney injury -Chronic kidney disease stage V -Acute kidney injury is possibly due to diarrhea, dysphagia -Box Attacher loosely following. -Creatinine 5.32 today. EGFR 11. -Nephrology following, patient received hemodialysis. -Diabetes mellitus -We will continue sliding scale insulin. If needed we will consider long- acting insulin as well. -Goal BG 140-180. Full code. Heparin subcutaneous. Discharge plan: Pending cardiovascular surgery intervention on 05/02/2017. We will also need nephrology clearance prior to discharge. Problem Qualifiers (1) Hypertension: Qualified Codes: I10 - Essential (primary) hypertension Suzanne Coates DO May 01, 2017 15:28
--- NOTE | 2017-05-01 19:22 | PD.CAR.PN ---
CVT Progress Note Subjective/Hospital Course: pt not in room 05/25, 05/26 Ct chest was ordered / will see today eval for left vats and decortication 04/29/2017 Patient initially scheduled for AV fistula right arm but patient does have an IV in his antecubital vein and in cephalic vein just above the wrist. Considering the patient's left-handed right arm was to be used for the AV fistula but now have to wait until these vessels heal up. In face of pending thoracoscopy /thoracotomy and decortication of the lung will wait till that is all done and then will deal with the AV fistula This will allow for patient also to heal the right arm and make the vein usable. 05/01/2017 Right arm is now ready for AV fistula Patient is fairly good veins and I may use antecubital vein either a basilic or cephalic vein to make a loop or perhaps do an upper arm fistula depending on situation on the table In addition I have discussed the care with Dr. Valero, and patient is scheduled to undergo tomorrow the thoracotomy and evacuation of left empyema with decortication of the lung In order to save patient want surgery will proceed with both at once so I will take over the entire case and do both parts. This plan will remain, unless there is significant amount of bleeding in the chest at the time of decortication at which point the AV fistula would of course be postponed. Discussed today at patient at length Objective: Vital Signs Date Time Temp Pulse Resp B/P (MAP) Pulse Ox O2 Delivery O2 Flow Rate FiO2 05/01/17 12:00 96.5 61 16 164/88 (113) 95 05/01/17 08:00 96.2 65 16 162/88 (112) 95 05/01/17 04:40 96.8 66 17 163/91 (115) 97 05/01/17 04:16 65 05/01/17 00:40 96.9 68 17 137/70 (92) 94 05/01/17 00:07 67 04/30/17 20:40 98.2 67 17 156/90 (112) 95 04/30/17 20:04 66 Result Diagram: 04/30/1722104/30/17221 (1) Hypertensive heart and chronic kidney disease with heart failure Plan: defer to nephrology. LVEF 40-45% with LVH (2) CKD (chronic kidney disease), stage V (3) Loculated pleural effusion Plan: consult Dr. Ben Valero (4) Iron deficiency anemia Plan: Cardiology cleared for EGDE/ colonoscopy Yvon Snyder MD May 01, 2017 19:22
[2017-05-01] MEDS ORDERED: INSULIN HUMAN REGULAR 1,000 UNITS/10 ML VIAL SQ PRN (23:15)
[2017-05-01] MEDS ORDERED: POVIDONE IODINE 5% (ANTISEPSIS KIT) 4 APPLICATIONS EACH NARE PRN (23:15)
[2017-05-01] MEDS ORDERED: CHLORHEXIDINE GLUCONATE 2 % 1 PACK (2 CLOTHS) TOPICAL PRN (23:15)
[2017-05-01] MEDS ORDERED: METOPROLOL TARTRATE 25 MG TAB PO PRN (23:15)
[2017-05-01] MEDS ORDERED: LACTATED RINGER'S 1000 ML IV PRN (23:15)
[2017-05-01] MEDS ORDERED: SODIUM CHLORID 0.9% 500 ML IV PRN (23:15)
[2017-05-02] VITALS (8 sets, daily range): BP systolic 114–169; BP diastolic 63–92; PULSE 63–66; RESP 16–17; TEMP 96.5–97.3; O2SAT 97–100
[2017-05-02] MEDS: hydrALAZINE HCL 25 MG TAB PO SCH ×3 (05:15→21:29)
[2017-05-02] MEDS: FUROSEMIDE 40 MG/4 ML VIAL IV PUSH SCH ×2 (07:52→21:28)
[2017-05-02] MEDS: PANTOPRAZOLE SOD 40 MG DELAYED RELEASE TAB PO SCH (07:53)
[2017-05-02] MEDS: CALCIUM ACETATE 667 MG CAP PO SCH ×3 (07:53→18:00)
[2017-05-02] MEDS: CARVEDILOL 12.5 MG TAB PO SCH ×2 (07:53→21:00)
[2017-05-02] MEDS: VITAMIN B CMPLX/VITC/FOLIC AC CAP PO SCH (07:54)
[2017-05-02 07:56] LABS: BICARBONATE 27.7 MEQ/L (21.0-32.0); CALCIUM 8.2 MG/DL (8.5-10.1); CREATININE 4.34 MG/DL (0.60-1.30)
[2017-05-02] MEDS: INSULIN ASPART SUPPLEMENTAL SCALE SQ SCH ×3 (07:58→22:21)
[2017-05-02] MEDS: SODIUM CHLORIDE 0.9% FLUSH 10 ML FLUSH IV FLUSH SCH ×3 (09:00→21:28)
[2017-05-02] MEDS: HEPARIN SODIUM - SQ 10,000 UNITS/ML VIAL SQ SCH ×2 (09:00→20:14)
--- NOTE | 2017-05-02 10:55 | HHI.NPPN ---
Subjective History of Present Illness 51 year old with IDDM, CKD stage 5, anemia, Sec HPTH Additional Remarks patient was seen and examined. He is comfortable. on dialysis . He will have left thoracotomy and decortication on 05/02 Review of Systems General Constitutional: Fatigue Cardiovascular Cardiac: Edema Objective Data Data Vital Signs Date Time Temp Pulse Resp B/P (MAP) Pulse Ox O2 Delivery O2 Flow Rate FiO2 05/02/17 07:43 96.5 66 17 169/90 (116) 98 05/02/17 07:25 66 05/02/17 04:52 96.7 65 16 166/92 (116) 99 05/02/17 00:25 96.9 63 16 147/82 (103) 97 05/01/17 20:18 96.8 65 16 163/88 (113) 99 05/01/17 12:00 96.5 61 16 164/88 (113) 95 -: 04/30/17 0222 05/02/17 0659 Physical Exam General Appearance: Well Developed, Well Nourished Neck Neck Exam: Neck Supple Pulmonary Resp Exam: Clear Bilaterally, Decreased Bases Gastrointestinal/Abdomen GI Exam: Soft, Non-Tender, Bowel Sounds Present Extremeties Extremities Exam: Moderate Edema, Pitting Edema Assessment/Plan Problem List: (1) Acute renal failure ICD Codes: N17.9 - Acute kidney failure, unspecified Plan: May have reached ESRD. [facility] He is positive for Hepatitis C C3-C4 normal CHAD neg PhosLo 667 mg tid with meals. Nephrocaps daily HD progress noted seen during dialysis UF 2 L on 3 K bath (2) CKD (chronic kidney disease), stage V ICD Codes: N18.5 - Chronic kidney disease, stage 5 Plan: May have reached ESRD. (3) Diabetes ICD Codes: E11.9 - Type 2 diabetes mellitus without complications Status: Chronic Plan: Complications including renal failure (4) Hypertension ICD Codes: I10 - Essential (primary) hypertension Plan: Continue to monitor progress (5) Anemia ICD Codes: D64.9 - Anemia, unspecified Plan: Continue to monitor on Procrit Problem Qualifiers (1) Diabetes: (2) Hypertension: Qualified Codes: I10 - Essential (primary) hypertension Jeremy Light MD May 02, 2017 10:55
[2017-05-02] MEDS ORDERED: ONDANSETRON HCL 4 MG/2 ML VIAL IV ONE (12:00)
[2017-05-02] MEDS ORDERED: ROCURONIUM INJ 50 MG/5 ML SYRINGE IV PUSH ONE (12:00)
[2017-05-02] MEDS ORDERED: SODIUM CHLORID 0.9% 500 ML INJ 1,000 ML IV ONE (12:00)
[2017-05-02] MEDS ORDERED: ePHEDrine/NS 25 MG/5 ML SYRINGE IV ONE (12:00)
[2017-05-02] MEDS ORDERED: DEXAMETHASONE SOD PHOS 4 MG/ML VIAL IV ONE (12:00)
[2017-05-02] MEDS ORDERED: PROPOFOL 200 MG/20 ML AMP IV ONE (12:00)
[2017-05-02] MEDS ORDERED: ceFAZolin INJ 1,000 MG VIAL IV ONE (12:00)
[2017-05-02] MEDS ORDERED: LIDOCAINE HCL 1% PF 5 ML SYRINGE OTHER ONE (12:00)
[2017-05-02] MEDS ORDERED: HEPARIN SODIUM - SQ 10,000 UNITS/ML VIAL ONE (12:34)
[2017-05-02] MEDS ORDERED: BUPIVACAINE HCL PF 0.5% 30 ML VIAL ONE (12:35)
[2017-05-02] MEDS ORDERED: SODIUM CHLORIDE 0.9% FLUSH 10 ML FLUSH IV FLUSH PRN (16:45)
[2017-05-02] MEDS ORDERED: NALOXONE HCL 0.4 MG/ML AMP IV PUSH PRN (16:45)
[2017-05-02] MEDS ORDERED: Post-op Orders (for Pharmacy) XX ONE (16:45)
[2017-05-02] MEDS ORDERED: ONDANSETRON HCL 4 MG/2 ML VIAL IV PUSH PRN (16:45)
[2017-05-02] MEDS ORDERED: PROPOFOL 1000 MG/100 ML INJ 100 ML ONE (16:55)
[2017-05-02] MEDS ORDERED: DO NOT ADM ANY ANTICOAGULANT DRUGS PRN (16:57)
[2017-05-02] MEDS ORDERED: SODIUM CHLOR 0.9% 1000 ML INJ 1,000 ML IV SCH (17:00)
[2017-05-02] MEDS ORDERED: MIDAZOLAM HCL 2 MG/2 ML VIAL ONE (17:04)
[2017-05-02] MEDS ORDERED: ENALAPRILAT 1.25 MG/ML VIAL ONE (17:24)
[2017-05-02] MEDS: PROPOFOL 1000 MG/100 ML IV PRN ×4 (17:28→23:34)
[2017-05-02] MEDS ORDERED: *morphine SULFATE 4 MG/ML PERIprocedure ONLY ONE (17:31)
--- NOTE | 2017-05-02 17:52 | RADRPT ---
EXAM DATE/TIME: 05/02/2017 17:23 [facility] COMPARISON: CHEST SINGLE AP, April 28, 2017, 6:09. INDICATIONS : Post left thoracotomy and intubation. MEDICAL HISTORY : Congestive heart failure. Hypertension Renal insufficiency, chronic. Diabetes. Measles. Anemia. H epatitis C. SURGICAL HISTORY : Bilateral knee surgery. Toe amputation. ENCOUNTER: Initial ACUITY: 1 day PAIN SCORE: Non-responsive. LOCATION: Bilateral chest FINDINGS: A single portable frontal view of the chest shows interval placement of 2 thoracostomy tubes on the l eft with evacuation of the effusion. Consolidation remains throughout the left lung but most pronounc ed inferiorly. A right basilar consolidation is now observed. No pneumothoraces. Heart is enlarged. D ialysis catheter tip in the endotracheal tube 5 cm from the amy. overlies the right chest. CONCLUSION: 1. Left thoracostomy tube placement with significant reduction of the left effusion. 2. Left lung and right lower lobe consolidation. 3. Cardiomegaly. Kendell Dutta Jr., MD on May 02, 2017 at 17:49 Board Certified Radiologist. This report was verified electronically.
[2017-05-02] MEDS: PIPERACIL-TAZO 2.25 GM PREMIX 50 ML IV SCH ×2 (18:00→23:34)
[2017-05-02 18:33] LABS: BASOPHIL % 0.3 % (0.0-2.0); EOSINOPHIL # 0.1 TH/MM3 (0-0.4); EOSINOPHIL % 1.3 % (0.0-4.0); HEMATOCRIT 26.8 % (39.0-51.0); HEMOGLOBIN 9.3 GM/DL (13.0-17.0); LYMPHOCYTE # 0.4 TH/MM3 (1.0-4.8); MEAN CELL VOLUME 88.4 FL (80.0-100.0); MEAN CORPUSCULAR HEMOGLOBIN 30.5 PG (27.0-34.0); MEAN CORPUSCULAR HGB CONC 34.5 % (32.0-36.0); MEAN PLATELET VOLUME 7.3 FL (7.0-11.0); MONO % 3.1 % (0.0-8.0); MONOCYTE # 0.3 TH/MM3 (0-0.9); NEUT % 91.3 % (16.0-70.0); PLATELET COUNT 198 TH/MM3 (150-450); RED BLOOD COUNT 3.04 MIL/MM3 (4.50-5.90); RED CELL DISTRIBUTION WIDTH 15.3 % (11.6-17.2); WHITE BLOOD COUNT 8.7 TH/MM3 (4.0-11.0)
[2017-05-02 18:57] LABS: BICARBONATE 27.3 MEQ/L (21.0-32.0); CALCIUM 8.1 MG/DL (8.5-10.1); CREATININE 2.98 MG/DL (0.60-1.30)
--- NOTE | 2017-05-02 19:59 | PD.CAR.PN ---
CVT Progress Note Subjective/Hospital Course: pt not in room 05/25, 05/26 Ct chest was ordered / will see today eval for left vats and decortication 04/29/2017 Patient initially scheduled for AV fistula right arm but patient does have an IV in his antecubital vein and in cephalic vein just above the wrist. Considering the patient's left-handed right arm was to be used for the AV fistula but now have to wait until these vessels heal up. In face of pending thoracoscopy /thoracotomy and decortication of the lung will wait till that is all done and then will deal with the AV fistula This will allow for patient also to heal the right arm and make the vein usable. 05/01/2017 Right arm is now ready for AV fistula Patient is fairly good veins and I may use antecubital vein either a basilic or cephalic vein to make a loop or perhaps do an upper arm fistula depending on situation on the table In addition I have discussed the care with Dr. Valero, and patient is scheduled to undergo tomorrow the thoracotomy and evacuation of left empyema with decortication of the lung In order to save patient want surgery will proceed with both at once so I will take over the entire case and do both parts. This plan will remain, unless there is significant amount of bleeding in the chest at the time of decortication at which point the AV fistula would of course be postponed. Discussed today at patient at length Objective: Vital Signs Date Time Temp Pulse Resp B/P (MAP) Pulse Ox O2 Delivery O2 Flow Rate FiO2 05/02/17 18:30 100 100 05/02/17 18:30 97.4 62 20 120/62 (81) 99 Mechanical Ventilator 30 05/02/17 18:15 64 20 110/60 (77) 99 Mechanical Ventilator 30 05/02/17 18:00 60 20 105/55 (72) 99 Mechanical Ventilator 30 05/02/17 17:45 63 20 120/62 (81) 99 Mechanical Ventilator 30 05/02/17 17:30 65 20 177/93 (121) 100 Mechanical Ventilator 30 05/02/17 17:15 66 22 191/93 (125) 100 Mechanical Ventilator 30 05/02/17 17:00 100 40 05/02/17 17:00 59 22 148/79 (102) 100 Mechanical Ventilator 40 05/02/17 16:49 97.4 59 21 151/74 (99) 100 Mechanical Ventilator 40 05/02/17 07:43 96.5 66 17 169/90 (116) 98 05/02/17 07:25 66 05/02/17 04:52 96.7 65 16 166/92 (116) 99 05/02/17 00:25 96.9 63 16 147/82 (103) 97 05/01/17 20:18 96.8 65 16 163/88 (113) 99 Patient status post left thoracotomy and decortication of the leg with lung with evacuation of the effusion/empyema At the end of procedure decision was made not to proceed with AV fistula considering the fact that I will have to heparinize the patient and due to the fairly significant decortication and raw surface area of the lung, I believe this with a been coupled with significant bleeding therefore AV fistula was left for another day Patient is transferred to ICU in stable condition and lung is fully expanded Patient will stay intubated overnight and probably be extubated in the morning Labs: Laboratory Tests Test 05/02/17 17:22 05/02/17 17:49 Blood Gas Puncture Site ART LINE Blood Gas Patient Temperature 98.6 Blood Gas HCO3 27 mmol/L (22-26) Blood Gas Base Excess 2.7 mmol/L (-2-2) Blood Gas Oxygen Saturation 96 % (90-100) Arterial Blood pH 7.43 (7.380-7.420) Arterial Blood Partial Pressure CO2 41 mmHg (38-42) Arterial Blood Partial Pressure O2 114 mmHg (61-120) Arterial Blood Oxygen Content 13.9 Vol % (12.0-20.0) Arterial Blood Carboxyhemoglobin 1.8 % (0-4) Arterial Blood Methemoglobin 1.1 % (0-2) Blood Gas Hemoglobin 10.2 G/DL (12.0-16.0) Oxygen Delivery Device VENTILATOR Blood Gas Ventilator Setting PRVC/AC Blood Gas Inspired Oxygen 40 % White Blood Count 8.7 TH/MM3 (4.0-11.0) Red Blood Count 3.04 MIL/MM3 (4.50-5.90) Hemoglobin 9.3 GM/DL (13.0-17.0) Hematocrit 26.8 % (39.0-51.0) Mean Corpuscular Volume 88.4 FL (80.0-100.0) Mean Corpuscular Hemoglobin 30.5 PG (27.0-34.0) Mean Corpuscular Hemoglobin Concent 34.5 % (32.0-36.0) Red Cell Distribution Width 15.3 % (11.6-17.2) Platelet Count 198 TH/MM3 (150-450) Mean Platelet Volume 7.3 FL (7.0-11.0) Neutrophils (%) (Auto) 91.3 % (16.0-70.0) Lymphocytes (%) (Auto) 4.0 % (9.0-44.0) Monocytes (%) (Auto) 3.1 % (0.0-8.0) Eosinophils (%) (Auto) 1.3 % (0.0-4.0) Basophils (%) (Auto) 0.3 % (0.0-2.0) Neutrophils # (Auto) 8.0 TH/MM3 (1.8-7.7) Lymphocytes # (Auto) 0.4 TH/MM3 (1.0-4.8) Monocytes # (Auto) 0.3 TH/MM3 (0-0.9) Eosinophils # (Auto) 0.1 TH/MM3 (0-0.4) Basophils # (Auto) 0.0 TH/MM3 (0-0.2) CBC Comment DIFF FINAL Differential Comment Blood Urea Nitrogen 31 MG/DL (7-18) Creatinine 2.98 MG/DL (0.60-1.30) Random Glucose 148 MG/DL (74-106) Calcium Level 8.1 MG/DL (8.5-10.1) Sodium Level 138 MEQ/L (136-145) Potassium Level 3.9 MEQ/L (3.5-5.1) Chloride Level 101 MEQ/L (98-107) Carbon Dioxide Level 27.3 MEQ/L (21.0-32.0) Anion Gap 10 MEQ/L (5-15) Estimat Glomerular Filtration Rate 22 ML/MIN (>89) Result Diagram: 05/02/17174805/02/171748 (1) Hypertensive heart and chronic kidney disease with heart failure Plan: defer to nephrology. LVEF 40-45% with LVH (2) CKD (chronic kidney disease), stage V (3) Loculated pleural effusion Plan: consult Dr. Ben Valero (4) Iron deficiency anemia Plan: Cardiology cleared for EGDE/ colonoscopy Yvon Snyder MD May 02, 2017 19:59
--- NOTE | 2017-05-02 20:24 | HHI.PR ---
Addendum to Inpatient Note Additional Information Patient was in surgery. Discussed with in the room. Suzanne Coates DO May 02, 2017 20:23
[2017-05-02] MEDS: RESP: ALBUTEROL 2.5 MG/IPRATROPIUM 0.5 MG NEB (SCH) NEB (21:44)
[2017-05-02] MEDS ORDERED: fentaNYL 2,500 MCG/NS 250 ML IV PRN (21:45)
[2017-05-03] VITALS (16 sets, daily range): BP systolic 102–138; BP diastolic 51–58; PULSE 63–77; RESP 12–22; TEMP 97.6–98.2; O2SAT 98–100
[2017-05-03] MEDS: RESP: ALBUTEROL 2.5 MG/IPRATROPIUM 0.5 MG NEB (SCH) NEB ×5 (03:30→19:36)
[2017-05-03] MEDS: PROPOFOL 1000 MG/100 ML IV PRN (03:30)
[2017-05-03 04:32] LABS: BASOPHIL % 0.2 % (0.0-2.0); HEMATOCRIT 26.8 % (39.0-51.0); LYMPH % 3.6 % (9.0-44.0); LYMPHOCYTE # 0.5 TH/MM3 (1.0-4.8); MEAN CELL VOLUME 88.8 FL (80.0-100.0); MEAN CORPUSCULAR HEMOGLOBIN 29.9 PG (27.0-34.0); MEAN CORPUSCULAR HGB CONC 33.7 % (32.0-36.0); MEAN PLATELET VOLUME 7.6 FL (7.0-11.0); MONOCYTE # 0.9 TH/MM3 (0-0.9); NEUT % 90.2 % (16.0-70.0); PLATELET COUNT 203 TH/MM3 (150-450); RED BLOOD COUNT 3.02 MIL/MM3 (4.50-5.90); RED CELL DISTRIBUTION WIDTH 15.4 % (11.6-17.2); WHITE BLOOD COUNT 14.4 TH/MM3 (4.0-11.0)
[2017-05-03 04:49] LABS: BICARBONATE 24.8 MEQ/L (21.0-32.0); CALCIUM 7.6 MG/DL (8.5-10.1); CREATININE 3.33 MG/DL (0.60-1.30)
[2017-05-03] MEDS: INSULIN ASPART SUPPLEMENTAL SCALE SQ SCH ×4 (04:50→23:19)
[2017-05-03] MEDS: hydrALAZINE HCL 25 MG TAB PO SCH ×3 (04:51→21:32)
[2017-05-03] MEDS: PIPERACIL-TAZO 2.25 GM PREMIX 50 ML IV SCH ×4 (04:52→23:22)
--- NOTE | 2017-05-03 05:16 | RADRPT ---
EXAM DATE/TIME: 05/03/2017 04:11 [facility] COMPARISON: CHEST SINGLE AP, May 02, 2017, 17:23. INDICATIONS : Respiratory failure. MEDICAL HISTORY : Congestive heart failure. Hypertension Renal insufficiency, chronic. Diabetes. Measles. Anemia. Hepa titis C. SURGICAL HISTORY : Bilateral knee surgery. Toe amputation. ENCOUNTER: Subsequent ACUITY: 1 week PAIN SCORE: Non-responsive. LOCATION: Bilateral chest FINDINGS: Portable AP view of the chest demonstrates a mildly enlarged cardiac silhouette. Dialysis catheter, E TT, and left chest tubes remain present. There is severe airspace consolidation in the left mid and l ower lung zone. No pneumothorax is visualized. There is mild atelectasis at the right lung base with improved aeration. CONCLUSION: 1. Improved aeration at the right lung base. 2. Stable severe left mid and lower lung zone airspace consolidation. Left chest tubes remain present but no pneumothorax is seen. Danilo Carney MD on May 03, 2017 at 5:13 Board Certified Radiologist. This report was verified electronically.
--- NOTE | 2017-05-03 07:38 | MP ---
cc: Yvon Snyder MD DATE OF OPERATION: 05/02/2017 PREOPERATIVE DIAGNOSIS: Empyema of the left chest, entrapment of the left lung. POSTOPERATIVE DIAGNOSIS: Empyema of the left chest, entrapment of the left lung. OPERATIVE PROCEDURE: Anterolateral thoracotomy, decortication of the left lung, chest tube placement, evacuation of empyema. SURGEON: Yvon Snyder MD ANESTHESIA: General. ESTIMATED BLOOD LOSS: 200 mL. INDICATIONS FOR PROCEDURE: This 51-year-old male was admitted with empyema of the left chest and entrapment of the left lung. He is scheduled to undergo decortication and venous access for dialysis. The patient is prepped and draped in usual fashion. Left anterolateral thoracotomy is carried out and then chest entered in the fifth intercostal space, retractors placed and lung visualized. The left lung is collapsed. The patient has a very firm peel covering the entire left lower and upper lobe and pulling it medially. This one is whitish in color and about 2-3 mm stick. Peel is now started in the left lower lobe with careful dissection between the visceral pleura and the peel. Nice plane is developed, and in this plane with peanut and sponge stick, the peel is gradually peeled off. This results in 2 small leaking areas, which are repaired with some 4-0 Prolene. Peel is now removed, going all the way back toward the aorta, and then it is resected. Some peel is sent for pathology and some for cultures. About 1 liter of yellowish fluid is evacuated from the chest, which appears to be pus or probably at this point it is a bacterial effusion considering the patient has been long time on antibiotics. This is continued into the fissure and then toward left upper lobe. Left upper lobe is carefully mobilized, and it is also covered entirely with a peel. Very carefully the peel is stripped off and lung allowed to expand. Now the anesthesia is requested to expand the left lung, which readily expands easily and fills up the left chest. Lung is now collapsed again. Chest is irrigated with copious amounts of saline, once more examined. No other abnormalities are found. Two chest tubes are placed, 1 straight, 1 basal angle tube 36-Lao and connected to a Y connection Pleur-evac. The surface of the lung is now covered with BioGlue to seal off the small leaks and to improve the pleurodesis. #2 Vicryl figure of eights are now placed over the ribs and then tightened simultaneously . The serratus and latissimus are closed with #1 Vicryl running stitch and skin with katy. The patient tolerated the procedure well, chest x-ray in recovery room of the lung. Yvon Snyder MD SJ/DL , 07:56 PM , 07:37 AM
[2017-05-03] MEDS: CALCIUM ACETATE 667 MG CAP PO SCH ×3 (09:00→17:08)
[2017-05-03] MEDS: CARVEDILOL 12.5 MG TAB PO SCH ×2 (09:00→21:00)
[2017-05-03] MEDS: SODIUM CHLORIDE 0.9% FLUSH 10 ML FLUSH IV FLUSH SCH ×3 (09:00→21:26)
[2017-05-03] MEDS: ONDANSETRON HCL 4 MG/2 ML VIAL IV PUSH PRN (11:36)
--- NOTE | 2017-05-03 12:16 | MB ---
cc: Ellen Ambrose MD DATE OF CONSULT: 05/02/2017 HISTORY OF PRESENT ILLNESS: The patient is a 51-year-old male with past medical history of CHF, hypertension, diabetes mellitus, chronic kidney disease stage 5, anemia, who was admitted to [facility] on April 25, under hospitalist service for shortness of breath and CHF decompensation. The patient had a CT scan of the chest, which showed a pleural effusion with compressive atelectasis within the left lung and possible consolidation in the left upper lobe. He underwent ultrasound guided thoracentesis, with removal of 1750 milliliters of clear yellow fluid. The pleural effusion was transudative fluid. The patient also underwent right IJ Permacath placement on April 28 and was started on hemodialysis. He was seen by Cardiothoracic Surgery on April 29 for loculated effusion. This afternoon, the patient underwent a thoracotomy and decortication from the left lung. In the OR, he had 900 milliliters of crystalloid, EBL 300 milliliters and urine output of 300 milliliters. The patient remained on mechanical ventilation postop and Critical Care Medicine was consulted for critical care management. PAST MEDICAL HISTORY: Significant for hypertension, diabetes, anemia, chronic kidney disease stage V. PAST SURGICAL HISTORY: Previous toe amputation due to diabetic ulcer, knee replacements ALLERGIES: NO KNOWN DRUG ALLERGIES. SOCIAL HISTORY: Nonsmoker. No history of alcohol or drug use. CURRENT MEDICATIONS: Include sliding scale insulin, vitamin B Nephro caps, Epogen, Protonix, hydralazine, Coreg. FAMILY HISTORY: Noncontributing to current present illness. REVIEW OF SYSTEMS: As per HPI. The rest of review of systems unobtainable as the patient is intubated. PHYSICAL EXAMINATION: GENERAL: This is a 51-year-old male, status post thoracotomy and decortication of the left lung for loculated pleural effusion. VITAL SIGNS: Temperature 96.5, pulse of 59, blood pressure 172/73, saturation is 100%. Vent setting, currently on a PRVC rate of 12, tidal volume 550, PEEP of 5, I-time 1, FIO2 40%. HEENT: Atraumatic, normocephalic. Pupils equal, round, reactive to light and accommodation. Extraocular muscles intact. Conjunctiva pink. Anicteric sclerae. Oral mucosa within normal. NECK: Supple. No JVD, adenopathy or thyromegaly. Trachea midline. Orally intubated. CARDIOVASCULAR: Regular rate and rhythm. Normal S1, S2. No murmurs, rubs or gallops noted. PULMONARY: Bilateral air entry. ABDOMEN: Soft, nontender, no distention. Positive bowel sounds. EXTREMITIES: No cyanosis, clubbing or edema. NEUROLOGIC: Intubated and sedated with Diprivan. LABORATORY DATA: CBC from April 30, WBC 6.2, hemoglobin 8.3, hematocrit 24, platelet count of 185. BMP today, sodium 139, potassium 4.4, chloride 102, BUN 51, creatinine 4.34, glucose 123. RADIOGRAPHIC STUDIES: Most recent chest x-ray on April 28 showed persistent left pleural effusion with associated air space disease in the left lung. Upper extremities Doppler ultrasound showed no evidence of DVT. IMPRESSION: 1. Ventilator, respiratory failure. 2. Loculated pleural effusion, status post thoracotomy and decortication of the left lung. 3. Congestive heart failure. 4. Status post ultrasound guided thoracentesis on April 26, transudative fluid. 5. Hypertension. 6. Chronic kidney disease, on hemodialysis. 7. Anemia. 8. Diabetes mellitus. RECOMMENDATIONS: 1. Continue with Diprivan infusion for sedation and daily sedation vacation. Monitor neuro signs closely. 2. Continue with vent support and maintain saturations above 92%. 3. Bronchodilators or place on DuoNeb every 6 hours and we will initiate ICU vent level. 4. Check chest x-ray and ABG postop. 5. Monitor heart rate and blood pressure closely and maintain MAP greater than 65 millimeters of mercury. Continue with hydralazine 25 milligrams every 8 hours, Coreg 12.5 milligrams every 12 hours. Echocardiogram from April 26 showed an EF of 40-45%, with moderate pulmonary hypertension, PA pressure 64 millimeters of mercury. 6. Monitor renal function, Is and Os, and avoid nephrotoxins. Hemodialysis per Renal service. Dr. Light from Nephrology is following. 7. Keep nothing by mouth for now and start tube feeds within the next 24 hours if remains intubated. Continue with PPI for GI prophylaxis. 8. Place on antibiotics in the form of Zosyn. Monitor for signs of infection, which include fever and WBC. Obtain a sputum culture with Gram stain. His pleural fluid culture from April 26 showed no growth. 9. Sliding scale insulin with Accu-Chek for glycemic control. 10. Monitor CBC and chest tube drainage. 11. GI prophylaxis with Protonix 40 milligrams daily and DVT prophylaxis with SCDs. We will hold off on chemical anticoagulation prophylaxis as the patient is recent postop. 12. Lines, the patient has peripheral IVs. Right Permacath in place and radial arterial line. MD ANGY Perry/FRANKLYN , 05:24 PM , 06:14 PM
--- NOTE | 2017-05-03 13:47 | HHI.NPPN ---
Subjective History of Present Illness 51 year old with IDDM, CKD stage 5, anemia, Sec HPTH Additional Remarks patient was seen and examined. He is comfortable. has left thoracotomy and decortication on 05/02 Review of Systems General Constitutional: Fatigue Cardiovascular Cardiac: Edema Objective Data Data Vital Signs Date Time Temp Pulse Resp B/P (MAP) Pulse Ox O2 Delivery O2 Flow Rate FiO2 05/03/17 12:17 100 Nasal Cannula 2.00 05/03/17 12:16 100 Nasal Cannula 2 05/03/17 11:45 30 05/03/17 08:15 100 30 05/03/17 08:00 98.2 63 18 126/58 (80) 100 05/03/17 08:00 64 05/03/17 04:00 98.2 67 12 124/51 (75) 100 Automatic Cuff 05/03/17 03:30 100 30 05/03/17 01:36 100 30 05/03/17 00:00 97.6 66 22 126/54 (78) 100 05/02/17 20:32 100 30 05/02/17 20:00 97.3 64 16 114/63 (80) 98 05/02/17 18:30 100 100 05/02/17 18:30 97.4 62 20 120/62 (81) 99 Mechanical Ventilator 30 05/02/17 18:15 64 20 110/60 (77) 99 Mechanical Ventilator 30 05/02/17 18:00 60 20 105/55 (72) 99 Mechanical Ventilator 30 05/02/17 17:45 63 20 120/62 (81) 99 Mechanical Ventilator 30 05/02/17 17:30 65 20 177/93 (121) 100 Mechanical Ventilator 30 05/02/17 17:15 66 22 191/93 (125) 100 Mechanical Ventilator 30 05/02/17 17:00 100 40 05/02/17 17:00 59 22 148/79 (102) 100 Mechanical Ventilator 40 05/02/17 16:49 97.4 59 21 151/74 (99) 100 Mechanical Ventilator 40 -: 05/03/17 0410 05/03/17 0410 Microbiology 05/02/17 Fungal Smear - Final, Resulted NO FUNGAL ELEMENTS SEEN. 05/02/17 Fungal Culture, Resulted Pending 05/02/17 Acid Fast Stain, Received Pending 05/02/17 Mycobacterial Culture, Received Pending 05/02/17 Gram Stain - Final, Resulted 05/02/17 Wound Culture - Preliminary, Resulted NO GROWTH IN 24 HOURS. 05/02/17 Fungal Smear - Final, Resulted NO FUNGAL ELEMENTS SEEN. 05/02/17 Fungal Culture, Resulted Pending 05/02/17 Acid Fast Stain, Received Pending 05/02/17 Mycobacterial Culture, Received Pending 05/02/17 Gram Stain - Final, Resulted 05/02/17 Wound Culture - Preliminary, Resulted NO GROWTH IN 24 HOURS. Physical Exam General Appearance: Well Developed, Well Nourished Neck Neck Exam: Neck Supple Pulmonary Resp Exam: Clear Bilaterally, Decreased Bases Gastrointestinal/Abdomen GI Exam: Soft, Non-Tender, Bowel Sounds Present Extremeties Extremities Exam: Moderate Edema, Pitting Edema Assessment/Plan Problem List: (1) Acute renal failure ICD Codes: N17.9 - Acute kidney failure, unspecified Plan: May have reached ESRD. Dialysis through PermCath. He is positive for Hepatitis C Ab , RNA negative C3-C4 normal CHAD neg PhosLo 667 mg tid with meals. Nephrocaps daily HD is MWF schedule L thoracotomy CT in place (2) CKD (chronic kidney disease), stage V ICD Codes: N18.5 - Chronic kidney disease, stage 5 Plan: May have reached ESRD. (3) Diabetes ICD Codes: E11.9 - Type 2 diabetes mellitus without complications Status: Chronic Plan: Complications including renal failure (4) Hypertension ICD Codes: I10 - Essential (primary) hypertension Plan: Continue to monitor progress (5) Anemia ICD Codes: D64.9 - Anemia, unspecified Plan: Continue to monitor on Procrit Problem Qualifiers (1) Diabetes: (2) Hypertension: Qualified Codes: I10 - Essential (primary) hypertension Jeremy Light MD May 03, 2017 13:47
[2017-05-03] MEDS: PANTOPRAZOLE SOD 40 MG DELAYED RELEASE TAB PO SCH (15:02)
--- NOTE | 2017-05-03 15:29 | MB ---
cc: Yvon Snyder MD DATE OF CONSULT: 04/28/2017 CONSULTING PHYSICIAN: Dr. Snyder, Surgery REASON FOR CONSULTATION: Renal failure, need for vascular access, left lung entrapment. HISTORY OF PRESENT ILLNESS: This 51-year-old male was admitted to the hospital with shortness of breath and edema in his legs. The patient is known to have hypertension, diabetes and congestive heart failure, as well as impaired renal function. He is noted to have large pleural effusion and entrapment of the left lung. The patient will need access for dialysis, as well as decortication of the left lung. PAST SURGICAL HISTORY: Knee surgery and right 4th and 5th toe amputations. SOCIAL HISTORY: Does not smoke, does not drink. PHYSICAL EXAMINATION: GENERAL: Reveals a pleasant 51-year-old gentleman in no acute distress. HEENT: Normocephalic, atraumatic. Pupils equal, react. Extraocular muscles intact. NECK: Supple. Bilateral carotid pulses. Mild right carotid bruit. CHEST: Bilateral breath sounds, decreased over the left side significantly, barely audible. On percussion, the left side is dull. CARDIOVASCULAR: Regular rhythm. I do not appreciate a murmur, but there is a slight mitral insufficiency on the echo. ABDOMEN: Soft, active bowel sounds. EXTREMITIES: The patient has bilateral femoral pulses and popliteal pulse. He has significant bilateral leg edema below the level of the knee, +3 pitting. IMPRESSION AND PLAN: This is a 51-year-old male with multiple medical problems including renal failure and congestive heart failure. This gentleman will require long-term access for dialysis. We will go ahead with arteriovenous fistula on the right arm, considering he is left handed. In addition, the patient will need thoracotomy and evacuation of empyema and decortication of the left lung, which is now entrapped. Thank you very much for referral. Total care time 38 minutes. MD YANETH Miranda/FRANKLYN , 06:28 PM , 01:04 AM
--- NOTE | 2017-05-03 17:01 | HHI.PR ---
Subjective Remarks Follow up pleural effusions, CHF. The patient was extubated today at about noon. He states that he feels much better. He reports nonproductive cough. There is pain at the surgery site. Objective Vitals Vital Signs Date Time Temp Pulse Resp B/P (MAP) Pulse Ox O2 Delivery O2 Flow Rate FiO2 05/03/17 12:17 100 Nasal Cannula 2.00 05/03/17 12:16 100 Nasal Cannula 2 05/03/17 11:45 30 05/03/17 08:15 100 30 05/03/17 08:00 98.2 63 18 126/58 (80) 100 05/03/17 08:00 64 05/03/17 04:00 98.2 67 12 124/51 (75) 100 Automatic Cuff 05/03/17 03:30 100 30 05/03/17 01:36 100 30 05/03/17 00:00 97.6 66 22 126/54 (78) 100 05/02/17 20:32 100 30 05/02/17 20:00 97.3 64 16 114/63 (80) 98 05/02/17 18:30 100 100 05/02/17 18:30 97.4 62 20 120/62 (81) 99 Mechanical Ventilator 30 05/02/17 18:15 64 20 110/60 (77) 99 Mechanical Ventilator 30 05/02/17 18:00 60 20 105/55 (72) 99 Mechanical Ventilator 30 05/02/17 17:45 63 20 120/62 (81) 99 Mechanical Ventilator 30 05/02/17 17:30 65 20 177/93 (121) 100 Mechanical Ventilator 30 05/02/17 17:15 66 22 191/93 (125) 100 Mechanical Ventilator 30 05/02/17 17:00 100 40 05/02/17 17:00 59 22 148/79 (102) 100 Mechanical Ventilator 40 I/O 05/02/17 05/02/17 05/02/17 05/03/17 05/03/17 05/03/17 07:00 15:00 23:00 07:00 15:00 23:00 Intake Total 0 ml 1100 ml 400 ml Output Total 2000 ml 950 ml 890 ml Balance 0 ml -2000 ml 150 ml -490 ml Intake Oral 0 ml IV Total 200 ml 400 ml Other 900 ml Output Urine Total 300 ml 100 ml Chest Tube Drainage Total 350 ml 790 ml Hemodialysis 2000 ml Estimated Blood Loss 300 ml # Voids 2 # Bowel Movements 2 0 Result Diagram: 05/03/1740905/03/17409 Imaging Last Impressions Chest X-Ray 05/03/17 Signed Impressions: Service Date/Time: Wednesday, May 03, 2017 04:11 - CONCLUSION: 1. Improved aeration at the right lung base. 2. Stable severe left mid and lower lung zone airspace consolidation. Left chest tubes remain present but no pneumothorax is seen. Danilo Carney MD Upper Extremity Ultrasound 04/28/17 Signed Impressions: Service Date/Time: April 17:55 - CONCLUSION: No evidence of upper extremity DVT. Leif Espinosa MD Catheter Placement X-Ray 04/28/17 Signed Impressions: Service Date/Time: April 09:21 - CONCLUSION: Uncomplicated PermaCath placement as above. Mark Maravilla MD Chest CT 04/27/17 Signed Impressions: Service Date/Time: Thursday, April 27, 2017 15:55 - CONCLUSION: 1. Residual large left pleural effusion with associated parietal pleural thickening. There is compressive atelectasis within the left lung and possible consolidation in the left upper lobe. 2. Small simple appearing right pleural effusion with mild compressive atelectasis in the right lower lobe. 3. There is a small volume of free fluid in the upper abdomen. Danilo Carney MD Thoracentesis Ultrasound 04/26/17 0000 Signed Impressions: Service Date/Time: Wednesday, April 26, 2017 13:24 - CONCLUSION: Uncomplicated ultrasound guided thoracentesis. Robert Estrada MD Renal Ultrasound 04/26/17 0000 Signed Impressions: Service Date/Time: Wednesday, April 26, 2017 07:46 - CONCLUSION: Echogenic kidneys bilaterally compatible with medical renal disease. Trace ascites Mark Maravilla MD Objective Remarks General: No acute distress. Heart: Regular rate and rhythm. No murmur. Lungs: Clear to auscultation bilaterally. No wheezes, rales, or rhonchi. Breathing is nonlabored. Chest tube in place. Abdomen: Soft, nontender, nondistended. Extremities: No lower extremity edema. Psych: Alert and oriented. Procedures Ultrasound-guided thoracentesis 04/26/2017. Echocardiogram 04/26/2017 Mildly dilated left ventricle. The left ventricular systolic function is moderately reduced with an estimated ejection fraction in the range of 40-45%. Mild LVH. The left atrial size is [id number] dilated. The right atrial size is [id number] dilated. Mild mitral valve regurgitation. Aortic valve sclerosis is present. There is mild to moderate tricuspid valve regurgitation. The estimated pulmonary arterial pressure is 64 mmHg. Mild pulmonary valve regurgitation. A right sided pleural effusion is present. A large left sided pleural effusion is noted. 05/02/17 anterolateral thoracotomy, decortication of the left lung, chest tube placement, evacuation of empyema Urinary Catheter: Yes Assessment to: Continue Cowart insert reason: Surgical/Invasive Proced Vascular Central Line Catheter: No A/P Problem List: (1) Bilateral pleural effusion ICD Code: J90 - Pleural effusion, not elsewhere classified (2) OSMANY (acute kidney injury) ICD Code: N17.9 - Acute kidney failure, unspecified (3) Diabetes mellitus, type 2 ICD Code: E11.9 - Type 2 diabetes mellitus without complications (4) CKD (chronic kidney disease), stage V ICD Code: N18.5 - Chronic kidney disease, stage 5 (5) Hypertension ICD Code: I10 - Essential (primary) hypertension Assessment and Plan 1. Bilateral pleural effusion: Likely secondary to CHF, chronic kidney disease. Status post thoracentesis. Status post thoracotomy with decortication and chest tube placement. The patient was extubated today. Continue supplemental oxygen. Continue incentive spirometry. 2. Acute systolic congestive heart failure: Continue IV Lasix. Continue carvedilol. 3. Hypertension: Continue Coreg, hydralazine. Blood pressure is well controlled. 4. Diabetes mellitus: Monitor Accu-Cheks and cover with sliding scale insulin. 5. Acute renal failure superimposed on chronic kidney disease stage V: Continue dialysis per nephrology recommendations. 6. Anemia: Possibly secondary to chronic kidney disease. Monitor H&H. 7. DVT prophylaxis: Heparin. Problem Qualifiers (1) Hypertension: Qualified Codes: I10 - Essential (primary) hypertension Jorge Mendieta MD May 03, 2017 17:01
[2017-05-03] MEDS: VITAMIN B CMPLX/VITC/FOLIC AC CAP PO SCH (17:08)
[2017-05-03] MEDS: HEPARIN SODIUM - SQ 10,000 UNITS/ML VIAL SQ SCH ×2 (17:11→21:26)
[2017-05-03] MEDS: FUROSEMIDE 20 MG/2 ML VIAL IV PUSH SCH (18:31)
--- NOTE | 2017-05-03 20:02 | PD.CAR.PN ---
CVT Progress Note Subjective/Hospital Course: pt not in room 05/25, 05/26 Ct chest was ordered / will see today eval for left vats and decortication 04/29/2017 Patient initially scheduled for AV fistula right arm but patient does have an IV in his antecubital vein and in cephalic vein just above the wrist. Considering the patient's left-handed right arm was to be used for the AV fistula but now have to wait until these vessels heal up. In face of pending thoracoscopy /thoracotomy and decortication of the lung will wait till that is all done and then will deal with the AV fistula This will allow for patient also to heal the right arm and make the vein usable. 05/01/2017 Right arm is now ready for AV fistula Patient is fairly good veins and I may use antecubital vein either a basilic or cephalic vein to make a loop or perhaps do an upper arm fistula depending on situation on the table In addition I have discussed the care with Dr. Valero, and patient is scheduled to undergo tomorrow the thoracotomy and evacuation of left empyema with decortication of the lung In order to save patient want surgery will proceed with both at once so I will take over the entire case and do both parts. This plan will remain, unless there is significant amount of bleeding in the chest at the time of decortication at which point the AV fistula would of course be postponed. Discussed today at patient at length 05/03/2017 Patient doing well at this point Successfully extubated Bilateral good breath sounds Small air leak on the left side which is consistent with a decortication and several surface lung leaks Lung fully expanded Chest tube drainage decreased All things equal patient can be transferred to floor will be started on regular diet Start on heparin sq for prophylaxis Patient doing great at this time but needs to deep breathe and cough Objective: Vital Signs Date Time Temp Pulse Resp B/P (MAP) Pulse Ox O2 Delivery O2 Flow Rate FiO2 05/03/17 19:36 100 Nasal Cannula 2.00 05/03/17 18:00 70 05/03/17 16:00 65 05/03/17 16:00 97.6 68 20 103/51 (68) 99 05/03/17 14:00 66 05/03/17 12:17 100 Nasal Cannula 2.00 05/03/17 12:16 100 Nasal Cannula 2 05/03/17 12:00 68 05/03/17 12:00 97.6 68 16 138/57 (84) 99 05/03/17 11:45 30 05/03/17 10:00 63 05/03/17 08:15 100 30 05/03/17 08:00 98.2 63 18 126/58 (80) 100 05/03/17 08:00 64 05/03/17 04:00 98.2 67 12 124/51 (75) 100 Automatic Cuff 05/03/17 03:30 100 30 05/03/17 01:36 100 30 05/03/17 00:00 97.6 66 22 126/54 (78) 100 05/02/17 20:32 100 30 Result Diagram: 05/03/170 05/03/17 0410 (1) Hypertensive heart and chronic kidney disease with heart failure Plan: defer to nephrology. LVEF 40-45% with LVH (2) CKD (chronic kidney disease), stage V (3) Loculated pleural effusion Plan: consult Dr. Ben Valero (4) Iron deficiency anemia Plan: Cardiology cleared for EGDE/ colonoscopy Yvon Snyder MD May 03, 2017 20:02
[2017-05-04] VITALS (16 sets, daily range): BP systolic 108–164; BP diastolic 56–67; PULSE 68–103; RESP 13–28; TEMP 97.8–98.6; O2SAT 92–100
[2017-05-04] MEDS: MORPHINE SULFATE 15 MG TAB PO PRN (01:21)
[2017-05-04] MEDS: RESP: ALBUTEROL 2.5 MG/IPRATROPIUM 0.5 MG NEB (SCH) NEB ×4 (03:38→21:09)
[2017-05-04 05:26] LABS: AUTOMATED NEUTROPHIL # 13.2 TH/MM3 (1.8-7.7); BASOPHIL % 0.2 % (0.0-2.0); EOSINOPHIL # 0.1 TH/MM3 (0-0.4); EOSINOPHIL % 0.4 % (0.0-4.0); HEMATOCRIT 26.4 % (39.0-51.0); HEMOGLOBIN 8.9 GM/DL (13.0-17.0); LYMPH % 4.9 % (9.0-44.0); LYMPHOCYTE # 0.8 TH/MM3 (1.0-4.8); MEAN CELL VOLUME 88.9 FL (80.0-100.0); MEAN CORPUSCULAR HGB CONC 33.7 % (32.0-36.0); MEAN PLATELET VOLUME 7.7 FL (7.0-11.0); MONO % 9.1 % (0.0-8.0); MONOCYTE # 1.4 TH/MM3 (0-0.9); NEUT % 85.4 % (16.0-70.0); PLATELET COUNT 208 TH/MM3 (150-450); RED BLOOD COUNT 2.97 MIL/MM3 (4.50-5.90); RED CELL DISTRIBUTION WIDTH 15.7 % (11.6-17.2); WHITE BLOOD COUNT 15.5 TH/MM3 (4.0-11.0)
[2017-05-04] MEDS: PIPERACIL-TAZO 2.25 GM PREMIX 50 ML IV SCH ×3 (05:43→17:12)
[2017-05-04] MEDS: hydrALAZINE HCL 25 MG TAB PO SCH ×4 (06:00→22:00)
[2017-05-04 06:05] LABS: BICARBONATE 27.7 MEQ/L (21.0-32.0); CALCIUM 8.2 MG/DL (8.5-10.1); CREATININE 4.47 MG/DL (0.60-1.30); MAGNESIUM 1.9 MG/DL (1.5-2.5)
[2017-05-04] MEDS: INSULIN ASPART SUPPLEMENTAL SCALE SQ SCH ×4 (06:15→22:53)
[2017-05-04] MEDS: FUROSEMIDE 20 MG/2 ML VIAL IV PUSH SCH (09:00)
[2017-05-04] MEDS: CARVEDILOL 12.5 MG TAB PO SCH ×2 (09:00→22:54)
[2017-05-04] MEDS: HEPARIN SODIUM - IV 10,000 UNITS/10 ML VIAL PRN (09:48)
[2017-05-04] MEDS: GENTAMICIN SULFATE 20 MG/2 ML VIAL OTHER PRN (09:49)
[2017-05-04] MEDS: EPOETIN ALFA 10,000 UNITS/ML VIAL IV PUSH PRN (09:49)
[2017-05-04] MEDS: HEPARIN SODIUM - SQ 10,000 UNITS/ML VIAL SQ SCH ×2 (09:52→21:00)
[2017-05-04] MEDS: VITAMIN B CMPLX/VITC/FOLIC AC CAP PO SCH (09:53)
[2017-05-04] MEDS: PANTOPRAZOLE SOD 40 MG DELAYED RELEASE TAB PO SCH (09:53)
[2017-05-04] MEDS: SODIUM CHLORIDE 0.9% FLUSH 10 ML FLUSH IV FLUSH SCH ×2 (09:53→20:31)
[2017-05-04] MEDS: CALCIUM ACETATE 667 MG CAP PO SCH ×3 (09:53→17:12)
--- NOTE | 2017-05-04 10:24 | HHI.PR ---
Subjective Remarks Follow up CHF, pleural effusions. Patient is currently having dialysis. He states that he feels a little better today. Still with pain at surgical site, but improving. Dyspnea has improved. No chest pain. Objective Vitals Vital Signs Date Time Temp Pulse Resp B/P (MAP) Pulse Ox O2 Delivery O2 Flow Rate FiO2 05/04/17 09:11 100 21 05/04/17 08:00 71 05/04/17 08:00 98.1 70 23 108/56 (73) 99 05/04/17 06:00 72 05/04/17 04:00 98.0 73 18 118/59 (78) 98 05/04/17 04:00 73 05/04/17 03:00 100 Nasal Cannula 1.00 05/04/17 02:00 73 05/04/17 00:00 74 05/04/17 00:00 98.1 74 13 109/58 (75) 98 05/03/17 22:00 77 05/03/17 20:00 68 05/03/17 20:00 97.7 70 16 102/58 (73) 98 Arterial Line 05/03/17 19:36 100 Nasal Cannula 2.00 05/03/17 19:00 99 Nasal Cannula 2.00 05/03/17 18:00 70 05/03/17 16:00 65 05/03/17 16:00 97.6 68 20 103/51 (68) 99 05/03/17 14:00 66 05/03/17 12:17 100 Nasal Cannula 2.00 05/03/17 12:16 100 Nasal Cannula 2 05/03/17 12:00 68 05/03/17 12:00 97.6 68 16 138/57 (84) 99 05/03/17 11:45 30 I/O 05/03/17 05/03/17 05/03/17 05/04/17 05/04/17 05/04/17 07:00 15:00 23:00 07:00 15:00 23:00 Intake Total 400 ml 800 ml Output Total 890 ml 410 ml Balance -490 ml 390 ml Intake Oral 480 ml IV Total 400 ml 320 ml Output Urine Total 100 ml 100 ml Chest Tube Drainage Total 790 ml 310 ml # Bowel Movements 0 0 Result Diagram: 05/04/1743305/04/17433 Imaging Last Impressions Chest X-Ray 05/03/17 Signed Impressions: Service Date/Time: Wednesday, May 03, 2017 04:11 - CONCLUSION: 1. Improved aeration at the right lung base. 2. Stable severe left mid and lower lung zone airspace consolidation. Left chest tubes remain present but no pneumothorax is seen. Danilo Carney MD Upper Extremity Ultrasound 04/28/17 0000 Signed Impressions: Service Date/Time: April 17:55 - CONCLUSION: No evidence of upper extremity DVT. Leif Espinosa MD Catheter Placement X-Ray 04/28/17 Signed Impressions: Service Date/Time: April 09:21 - CONCLUSION: Uncomplicated PermaCath placement as above. Mark Maravilla MD Chest CT 04/27/17 0000 Signed Impressions: Service Date/Time: Thursday, April 27, 2017 15:55 - CONCLUSION: 1. Residual large left pleural effusion with associated parietal pleural thickening. There is compressive atelectasis within the left lung and possible consolidation in the left upper lobe. 2. Small simple appearing right pleural effusion with mild compressive atelectasis in the right lower lobe. 3. There is a small volume of free fluid in the upper abdomen. Danilo Carney MD Thoracentesis Ultrasound 04/26/17 0000 Signed Impressions: Service Date/Time: Wednesday, April 26, 2017 13:24 - CONCLUSION: Uncomplicated ultrasound guided thoracentesis. Robert Estrada MD Renal Ultrasound 04/26/17 0000 Signed Impressions: Service Date/Time: Wednesday, April 26, 2017 07:46 - CONCLUSION: Echogenic kidneys bilaterally compatible with medical renal disease. Trace ascites Mark Maraivlla MD Objective Remarks General: No acute distress. Heart: Regular rate and rhythm. No murmur. Lungs: Clear to auscultation bilaterally. No wheezes, rales, or rhonchi. Breathing is nonlabored. Chest tube in place. Abdomen: Soft, nontender, nondistended. Extremities: No lower extremity edema. Psych: Alert and oriented. Procedures Ultrasound-guided thoracentesis 04/26/2017. Echocardiogram 04/26/2017 Mildly dilated left ventricle. The left ventricular systolic function is moderately reduced with an estimated ejection fraction in the range of 40-45%. Mild LVH. The left atrial size is ulsrujmu-nl-ijznabfv dilated. The right atrial size is xfuu-xo-fnfshxzeaf dilated. Mild mitral valve regurgitation. Aortic valve sclerosis is present. There is mild to moderate tricuspid valve regurgitation. The estimated pulmonary arterial pressure is 64 mmHg. Mild pulmonary valve regurgitation. A right sided pleural effusion is present. A large left sided pleural effusion is noted. 05/02/17 anterolateral thoracotomy, decortication of the left lung, chest tube placement, evacuation of empyema Urinary Catheter: Yes Assessment to: Remove Vascular Central Line Catheter: No A/P Problem List: (1) Bilateral pleural effusion ICD Code: J90 - Pleural effusion, not elsewhere classified (2) OSMANY (acute kidney injury) ICD Code: N17.9 - Acute kidney failure, unspecified (3) Diabetes mellitus, type 2 ICD Code: E11.9 - Type 2 diabetes mellitus without complications (4) CKD (chronic kidney disease), stage V ICD Code: N18.5 - Chronic kidney disease, stage 5 (5) Hypertension ICD Code: I10 - Essential (primary) hypertension Assessment and Plan 1. Bilateral pleural effusion: Likely secondary to CHF, chronic kidney disease. Status post thoracentesis. Status post thoracotomy with decortication and chest tube placement. The patient was extubated 05/03/17. Continue supplemental oxygen. Continue incentive spirometry. 2. Acute systolic congestive heart failure: Continue IV Lasix. Continue carvedilol. 3. Hypertension: Continue Coreg, hydralazine. Blood pressure is well controlled. 4. Diabetes mellitus: Monitor Accu-Cheks and cover with sliding scale insulin. 5. Acute renal failure superimposed on chronic kidney disease stage V: Continue dialysis per nephrology recommendations. 6. Anemia: Possibly secondary to chronic kidney disease. Monitor H&H. 7. DVT prophylaxis: Heparin. Discussed with Dr. Snyder. Discharge Planning Transfer to med/surg floor when a bed is available. Problem Qualifiers (1) Hypertension: Qualified Codes: I10 - Essential (primary) hypertension Jorge Mendieta MD May 04, 2017 10:24
--- NOTE | 2017-05-04 11:22 | PD.CAR.PN ---
CVT Progress Note Subjective/Hospital Course: pt not in room 05/25, 05/26 Ct chest was ordered / will see today eval for left vats and decortication 04/29/2017 Patient initially scheduled for AV fistula right arm but patient does have an IV in his antecubital vein and in cephalic vein just above the wrist. Considering the patient's left-handed right arm was to be used for the AV fistula but now have to wait until these vessels heal up. In face of pending thoracoscopy /thoracotomy and decortication of the lung will wait till that is all done and then will deal with the AV fistula This will allow for patient also to heal the right arm and make the vein usable. 05/01/2017 Right arm is now ready for AV fistula Patient is fairly good veins and I may use antecubital vein either a basilic or cephalic vein to make a loop or perhaps do an upper arm fistula depending on situation on the table In addition I have discussed the care with Dr. Valero, and patient is scheduled to undergo tomorrow the thoracotomy and evacuation of left empyema with decortication of the lung In order to save patient want surgery will proceed with both at once so I will take over the entire case and do both parts. This plan will remain, unless there is significant amount of bleeding in the chest at the time of decortication at which point the AV fistula would of course be postponed. Discussed today at patient at length 05/03/2017 Patient doing well at this point Successfully extubated Bilateral good breath sounds Small air leak on the left side which is consistent with a decortication and several surface lung leaks Lung fully expanded Chest tube drainage decreased All things equal patient can be transferred to floor will be started on regular diet Start on heparin sq for prophylaxis Patient doing great at this time but needs to deep breathe and cough 05/04/2017 Patient doing very well status post left thoracotomy and decortication Chest tube drainage decreased to about 150 cc over 24 hours and patient is a tiny air leak Good pulmonary expansion and patient taking good breaths We will keep both chest tubes in for another few days until the air leak resolves and then pull them out one by one Patient can transfer to floor at this time For right AV fistula tomorrow Appreciate help from nephrology and internal medicine Objective: Vital Signs Date Time Temp Pulse Resp B/P (MAP) Pulse Ox O2 Delivery O2 Flow Rate FiO2 05/04/17 09:11 100 21 05/04/17 08:00 71 05/04/17 08:00 98.1 70 23 108/56 (73) 99 05/04/17 06:00 72 05/04/17 04:00 98.0 73 18 118/59 (78) 98 05/04/17 04:00 73 05/04/17 03:00 100 Nasal Cannula 1.00 05/04/17 02:00 73 05/04/17 00:00 74 05/04/17 00:00 98.1 74 13 109/58 (75) 98 05/03/17 22:00 77 05/03/17 20:00 68 05/03/17 20:00 97.7 70 16 102/58 (73) 98 Arterial Line 05/03/17 19:36 100 Nasal Cannula 2.00 05/03/17 19:00 99 Nasal Cannula 2.00 05/03/17 18:00 70 05/03/17 16:00 65 05/03/17 16:00 97.6 68 20 103/51 (68) 99 05/03/17 14:00 66 05/03/17 12:17 100 Nasal Cannula 2.00 05/03/17 12:16 100 Nasal Cannula 2 05/03/17 12:00 68 05/03/17 12:00 97.6 68 16 138/57 (84) 99 05/03/17 11:45 30 Labs: Laboratory Tests Test 05/04/17 04:34 White Blood Count 15.5 TH/MM3 (4.0-11.0) Red Blood Count 2.97 MIL/MM3 (4.50-5.90) Hemoglobin 8.9 GM/DL (13.0-17.0) Hematocrit 26.4 % (39.0-51.0) Mean Corpuscular Volume 88.9 FL (80.0-100.0) Mean Corpuscular Hemoglobin 30.0 PG (27.0-34.0) Mean Corpuscular Hemoglobin Concent 33.7 % (32.0-36.0) Red Cell Distribution Width 15.7 % (11.6-17.2) Platelet Count 208 TH/MM3 (150-450) Mean Platelet Volume 7.7 FL (7.0-11.0) Neutrophils (%) (Auto) 85.4 % (16.0-70.0) Lymphocytes (%) (Auto) 4.9 % (9.0-44.0) Monocytes (%) (Auto) 9.1 % (0.0-8.0) Eosinophils (%) (Auto) 0.4 % (0.0-4.0) Basophils (%) (Auto) 0.2 % (0.0-2.0) Neutrophils # (Auto) 13.2 TH/MM3 (1.8-7.7) Lymphocytes # (Auto) 0.8 TH/MM3 (1.0-4.8) Monocytes # (Auto) 1.4 TH/MM3 (0-0.9) Eosinophils # (Auto) 0.1 TH/MM3 (0-0.4) Basophils # (Auto) 0.0 TH/MM3 (0-0.2) CBC Comment DIFF FINAL Differential Comment Blood Urea Nitrogen 44 MG/DL (7-18) Creatinine 4.47 MG/DL (0.60-1.30) Random Glucose 161 MG/DL (74-106) Calcium Level 8.2 MG/DL (8.5-10.1) Magnesium Level 1.9 MG/DL (1.5-2.5) Sodium Level 139 MEQ/L (136-145) Potassium Level 4.6 MEQ/L (3.5-5.1) Chloride Level 101 MEQ/L (98-107) Carbon Dioxide Level 27.7 MEQ/L (21.0-32.0) Anion Gap 10 MEQ/L (5-15) Estimat Glomerular Filtration Rate 14 ML/MIN (>89) Result Diagram: 05/04/17 0434 05/04/17 043 (1) Hypertensive heart and chronic kidney disease with heart failure Plan: defer to nephrology. LVEF 40-45% with LVH (2) CKD (chronic kidney disease), stage V (3) Loculated pleural effusion Plan: consult Dr. Ben Valero (4) Iron deficiency anemia Plan: Cardiology cleared for EGDE/ colonoscopy Yvon Snyder MD May 04, 2017 11:22
--- NOTE | 2017-05-04 14:29 | HHI.NPPN ---
Subjective History of Present Illness 51 year old with IDDM, CKD stage 5, anemia, Sec HPTH Additional Remarks patient was seen and examined. He is comfortable. has left thoracotomy and decortication on 05/02 Review of Systems General Constitutional: Fatigue Cardiovascular Cardiac: Edema Objective Data Data 05/04/17 05/05/17 19:00 07:00 Output Total 1700 ml Balance -1700 ml Hemodialysis 1700 ml Vital Signs Date Time Temp Pulse Resp B/P (MAP) Pulse Ox O2 Delivery O2 Flow Rate FiO2 05/04/17 12:00 97.9 73 28 118/63 (81) 99 05/04/17 12:00 73 05/04/17 10:00 72 05/04/17 09:11 100 21 05/04/17 08:00 71 05/04/17 08:00 98.1 70 23 108/56 (73) 99 05/04/17 07:00 99 Room Air 21 05/04/17 06:00 72 05/04/17 04:00 98.0 73 18 118/59 (78) 98 05/04/17 04:00 73 05/04/17 03:00 100 Nasal Cannula 1.00 05/04/17 02:00 73 05/04/17 00:00 74 05/04/17 00:00 98.1 74 13 109/58 (75) 98 05/03/17 22:00 77 05/03/17 20:00 68 05/03/17 20:00 97.7 70 16 102/58 (73) 98 Arterial Line 05/03/17 19:36 100 Nasal Cannula 2.00 05/03/17 19:00 99 Nasal Cannula 2.00 05/03/17 18:00 70 05/03/17 16:00 65 05/03/17 16:00 97.6 68 20 103/51 (68) 99 -: 05/04/17 0434 05/04/17 0434 Physical Exam General Appearance: Well Developed, Well Nourished Neck Neck Exam: Neck Supple Pulmonary Resp Exam: Clear Bilaterally, Decreased Bases Gastrointestinal/Abdomen GI Exam: Soft, Non-Tender, Bowel Sounds Present Extremeties Extremities Exam: Moderate Edema, Pitting Edema Assessment/Plan Problem List: (1) Acute renal failure ICD Codes: N17.9 - Acute kidney failure, unspecified Plan: May have reached ESRD. Dialysis through PermCath. He is positive for Hepatitis C Ab , RNA negative C3-C4 normal CHAD neg PhosLo 667 mg tid with meals. Nephrocaps daily HD is MWF schedule done earlier 1.7 L off L thoracotomy CT in place (2) CKD (chronic kidney disease), stage V ICD Codes: N18.5 - Chronic kidney disease, stage 5 Plan: May have reached ESRD. (3) Diabetes ICD Codes: E11.9 - Type 2 diabetes mellitus without complications Status: Chronic Plan: Complications including renal failure (4) Hypertension ICD Codes: I10 - Essential (primary) hypertension Plan: Continue to monitor progress (5) Anemia ICD Codes: D64.9 - Anemia, unspecified Plan: Continue to monitor on Procrit Problem Qualifiers (1) Diabetes: (2) Hypertension: Qualified Codes: I10 - Essential (primary) hypertension Jeremy Light MD May 04, 2017 14:29
[2017-05-04] MEDS ORDERED: oxyCODONE/ACETAMINOPHEN 5 MG/325 MG TAB PO PRN (15:00)
[2017-05-04] MEDS: MORPHINE SULFATE 4 MG/ML INJ IV PUSH PRN ×2 (15:34→20:31)
[2017-05-04] MEDS ORDERED: fentaNYL 50 MCG/HR PATCH T-DERMAL SCH (16:00)
[2017-05-04] MEDS: FUROSEMIDE 20 MG TAB PO SCH (17:12)
[2017-05-04] MEDS ORDERED: LACTATED RINGER'S 1000 ML IV PRN (23:30)
[2017-05-04] MEDS ORDERED: CHLORHEXIDINE GLUCONATE 2 % 1 PACK (2 CLOTHS) TOPICAL PRN (23:30)
[2017-05-04] MEDS ORDERED: SODIUM CHLORID 0.9% 500 ML IV PRN (23:30)
[2017-05-04] MEDS ORDERED: POVIDONE IODINE 5% (ANTISEPSIS KIT) 4 APPLICATIONS EACH NARE PRN (23:30)
[2017-05-05] VITALS (9 sets, daily range): BP systolic 83–136; BP diastolic 49–73; PULSE 69–77; RESP 16–21; TEMP 95.6–97.3; O2SAT 94–100
[2017-05-05] MEDS: PIPERACIL-TAZO 2.25 GM PREMIX 50 ML IV SCH ×4 (00:07→18:38)
[2017-05-05] MEDS: MORPHINE SULFATE 4 MG/ML INJ IV PUSH PRN (04:54)
[2017-05-05] MEDS: INSULIN ASPART SUPPLEMENTAL SCALE SQ SCH ×4 (04:59→23:00)
[2017-05-05] MEDS: HEPARIN SODIUM - SQ 10,000 UNITS/ML VIAL SQ SCH ×2 (05:18→21:00)
[2017-05-05] MEDS: hydrALAZINE HCL 25 MG TAB PO SCH ×3 (06:00→22:00)
[2017-05-05] MEDS: VITAMIN B CMPLX/VITC/FOLIC AC CAP PO SCH (07:28)
[2017-05-05] MEDS: CALCIUM ACETATE 667 MG CAP PO SCH ×3 (07:28→18:31)
[2017-05-05] MEDS: PANTOPRAZOLE SOD 40 MG DELAYED RELEASE TAB PO SCH (07:29)
[2017-05-05 08:16] LABS: AUTOMATED NEUTROPHIL # 8.1 TH/MM3 (1.8-7.7); BASOPHIL # 0.1 TH/MM3 (0-0.2); BASOPHIL % 0.6 % (0.0-2.0); EOSINOPHIL # 0.1 TH/MM3 (0-0.4); EOSINOPHIL % 1.1 % (0.0-4.0); HEMATOCRIT 25.9 % (39.0-51.0); HEMOGLOBIN 8.8 GM/DL (13.0-17.0); LYMPH % 6.8 % (9.0-44.0); LYMPHOCYTE # 0.7 TH/MM3 (1.0-4.8); MEAN CELL VOLUME 89.6 FL (80.0-100.0); MEAN CORPUSCULAR HEMOGLOBIN 30.4 PG (27.0-34.0); MEAN PLATELET VOLUME 7.6 FL (7.0-11.0); MONO % 11.7 % (0.0-8.0); MONOCYTE # 1.2 TH/MM3 (0-0.9); NEUT % 79.8 % (16.0-70.0); PLATELET COUNT 199 TH/MM3 (150-450); RED BLOOD COUNT 2.89 MIL/MM3 (4.50-5.90); RED CELL DISTRIBUTION WIDTH 15.9 % (11.6-17.2); WHITE BLOOD COUNT 10.2 TH/MM3 (4.0-11.0)
[2017-05-05 08:42] LABS: BICARBONATE 29.6 MEQ/L (21.0-32.0)
[2017-05-05] MEDS: FUROSEMIDE 20 MG TAB PO SCH ×2 (08:54→18:31)
[2017-05-05] MEDS: CARVEDILOL 12.5 MG TAB PO SCH ×2 (08:58→21:00)
[2017-05-05] MEDS: SODIUM CHLORIDE 0.9% FLUSH 10 ML FLUSH IV FLUSH SCH ×2 (09:00→22:19)
[2017-05-05] MEDS: RESP: ALBUTEROL 2.5 MG/IPRATROPIUM 0.5 MG NEB (SCH) NEB ×3 (09:04→20:58)
[2017-05-05] MEDS ORDERED: BUPIVACAINE HCL PF 0.5% 30 ML VIAL ONE (09:45)
[2017-05-05] MEDS ORDERED: BUPIVACAINE/EPINEPHRINE 0.25% 50 ML VIAL ONE (09:45)
[2017-05-05] MEDS ORDERED: MIDAZOLAM HCL 2 MG/2 ML VIAL ONE (11:47)
[2017-05-05] MEDS ORDERED: DEXAMETHASONE SOD PHOS 4 MG/ML VIAL IV ONE (12:00)
[2017-05-05] MEDS ORDERED: PROPOFOL 200 MG/20 ML AMP IV ONE (12:00)
[2017-05-05] MEDS ORDERED: SUCCINYLCHOLINE CHLORIDE 200 MG/10 ML VIAL IV ONE (12:00)
[2017-05-05] MEDS ORDERED: LIDOCAINE HCL 1% PF 5 ML SYRINGE OTHER ONE (12:00)
[2017-05-05] MEDS ORDERED: ePHEDrine/NS 25 MG/5 ML SYRINGE IV ONE (12:00)
[2017-05-05] MEDS ORDERED: ONDANSETRON HCL 4 MG/2 ML VIAL IV ONE (12:00)
[2017-05-05] MEDS ORDERED: ROCURONIUM INJ 50 MG/5 ML SYRINGE IV PUSH ONE (12:00)
[2017-05-05] MEDS ORDERED: HEPARIN SODIUM - IV 10,000 UNITS/10 ML VIAL OTHER ONE (12:55)
--- NOTE | 2017-05-05 15:15 | HHI.PR ---
Subjective Remarks Follow up pleural effusion, renal failure, CHF. Patient just returned from surgery. Feels tired. No other complaints at this time. Denies chest pain, dyspnea, nausea, vomiting. Objective Vitals Vital Signs Date Time Temp Pulse Resp B/P (MAP) Pulse Ox O2 Delivery O2 Flow Rate FiO2 05/05/17 13:50 97.4 60 10 118/55 (76) 96 Nasal Cannula 3 05/05/17 10:30 64 18 100 05/05/17 10:14 Nasal Cannula 3 05/05/17 10:05 95.6 69 17 115/60 (78) 100 05/05/17 08:00 96.9 73 18 83/49 (60) 94 05/05/17 04:59 18 05/05/17 04:50 96.5 77 18 136/73 (94) 94 05/05/17 04:00 77 05/05/17 02:20 Nasal Cannula 2.00 05/05/17 00:00 75 05/04/17 23:50 97.9 76 17 114/59 (77) 96 05/04/17 22:00 97.8 68 18 127/67 (87) 99 05/04/17 21:11 98 Nasal Cannula 2.00 05/04/17 20:00 98.6 73 18 115/57 (76) 100 05/04/17 20:00 73 05/04/17 19:00 100 Nasal Cannula 2.00 05/04/17 18:00 77 05/04/17 16:36 14 05/04/17 16:00 75 05/04/17 16:00 97.9 75 14 164/67 (99) 92 05/04/17 15:42 100 Nasal Cannula 2.00 I/O 05/04/17 05/04/17 05/04/17 05/05/17 05/05/17 05/05/17 07:00 15:00 23:00 07:00 15:00 23:00 Intake Total 800 ml 1360 ml 340 ml 100 ml Output Total 410 ml 1700 ml 250 ml 150 ml 10 ml Balance 390 ml -1700 ml 1110 ml 190 ml 90 ml Intake Oral 480 ml 1020 ml 240 ml IV Total 320 ml 340 ml 100 ml Other 100 ml Output Urine Total 100 ml 50 ml Chest Tube Drainage Total 310 ml 200 ml 150 ml Hemodialysis 1700 ml Estimated Blood Loss 10 ml # Voids 0 0 # Bowel Movements 0 0 0 Result Diagram: 05/05/17 0714 05/05/17 0714 Imaging Last Impressions Chest X-Ray 05/03/17 0000 Signed Impressions: Service Date/Time: Wednesday, May 03, 2017 04:11 - CONCLUSION: 1. Improved aeration at the right lung base. 2. Stable severe left mid and lower lung zone airspace consolidation. Left chest tubes remain present but no pneumothorax is seen. Danilo Carney MD Upper Extremity Ultrasound 04/28/17 0000 Signed Impressions: Service Date/Time: April 17:55 - CONCLUSION: No evidence of upper extremity DVT. Leif Espinosa MD Catheter Placement X-Ray 04/28/17 0000 Signed Impressions: Service Date/Time: April 09:21 - CONCLUSION: Uncomplicated PermaCath placement as above. Mark Maravilla MD Chest CT 04/27/17 0000 Signed Impressions: Service Date/Time: Thursday, April 27, 2017 15:55 - CONCLUSION: 1. Residual large left pleural effusion with associated parietal pleural thickening. There is compressive atelectasis within the left lung and possible consolidation in the left upper lobe. 2. Small simple appearing right pleural effusion with mild compressive atelectasis in the right lower lobe. 3. There is a small volume of free fluid in the upper abdomen. Danilo Carney MD Thoracentesis Ultrasound 04/26/17 0000 Signed Impressions: Service Date/Time: Wednesday, April 26, 2017 13:24 - CONCLUSION: Uncomplicated ultrasound guided thoracentesis. Robert Estrada MD Renal Ultrasound 04/26/17 0000 Signed Impressions: Service Date/Time: Wednesday, April 26, 2017 07:46 - CONCLUSION: Echogenic kidneys bilaterally compatible with medical renal disease. Trace ascites Mark Maravilla MD Objective Remarks General: No acute distress. Heart: Regular rate and rhythm. No murmur. Lungs: Clear to auscultation bilaterally. No wheezes, rales, or rhonchi. Breathing is nonlabored. Chest tube in place. Abdomen: Soft, nontender, nondistended. Extremities: No lower extremity edema. Psych: Alert, drowsy. Answers questions appropriately. Procedures Ultrasound-guided thoracentesis 04/26/2017. Echocardiogram 04/26/2017 Mildly dilated left ventricle. The left ventricular systolic function is moderately reduced with an estimated ejection fraction in the range of 40-45%. Mild LVH. The left atrial size is vexxndof-bm-enxqbtdi dilated. The right atrial size is yjew-zt-widmxonxna dilated. Mild mitral valve regurgitation. Aortic valve sclerosis is present. There is mild to moderate tricuspid valve regurgitation. The estimated pulmonary arterial pressure is 64 mmHg. Mild pulmonary valve regurgitation. A right sided pleural effusion is present. A large left sided pleural effusion is noted. 05/02/17 anterolateral thoracotomy, decortication of the left lung, chest tube placement, evacuation of empyema Urinary Catheter: No Vascular Central Line Catheter: No A/P Problem List: (1) Bilateral pleural effusion ICD Code: J90 - Pleural effusion, not elsewhere classified (2) OSMANY (acute kidney injury) ICD Code: N17.9 - Acute kidney failure, unspecified (3) Diabetes mellitus, type 2 ICD Code: E11.9 - Type 2 diabetes mellitus without complications (4) CKD (chronic kidney disease), stage V ICD Code: N18.5 - Chronic kidney disease, stage 5 (5) Hypertension ICD Code: I10 - Essential (primary) hypertension Assessment and Plan 1. Bilateral pleural effusion: Likely secondary to CHF, chronic kidney disease. Status post thoracentesis. Status post thoracotomy with decortication and chest tube placement. The patient was extubated 05/03/17. Continue supplemental oxygen. Continue incentive spirometry. Chest tube management per cardiothoracic surgery. 2. Acute systolic congestive heart failure: Continue IV Lasix. Continue carvedilol. 3. Hypertension: Continue Coreg, hydralazine. Blood pressure is well controlled. 4. Diabetes mellitus: Monitor Accu-Cheks and cover with sliding scale insulin. 5. Acute renal failure superimposed on chronic kidney disease stage V: Continue dialysis per nephrology recommendations. Right arm AV fistula done today. 6. Anemia: Possibly secondary to chronic kidney disease. Monitor H&H. 7. DVT prophylaxis: Heparin. Discharge Planning When chest tube removed and cleared by CV surgery. Problem Qualifiers (1) Hypertension: Qualified Codes: I10 - Essential (primary) hypertension Jorge Mendieta MD May 05, 2017 15:15
[2017-05-05] MEDS ORDERED: DO NOT ADM ANY ANTICOAGULANT DRUGS PRN (16:30)
[2017-05-05] MEDS ORDERED: NALOXONE HCL 0.4 MG/ML AMP IV PRN ×2 (16:30→18:45)
--- NOTE | 2017-05-05 16:35 | HHI.NPPN ---
Subjective History of Present Illness 51 year old with IDDM, CKD stage 5, anemia, Sec HPTH Additional Remarks patient was seen and examined. He is comfortable. has left thoracotomy and decortication on 05/02 became lethargic with Fentanyl patch given Narcan and responded Review of Systems General Constitutional: Fatigue Cardiovascular Cardiac: Edema Objective Data Data 05/05/17 05/06/17 19:00 07:00 Intake Total 100 ml Output Total 10 ml Balance 90 ml Other 100 ml Estimated Blood Loss 10 ml # Voids 0 Vital Signs Date Time Temp Pulse Resp B/P (MAP) Pulse Ox O2 Delivery O2 Flow Rate FiO2 05/05/17 14:55 64 15 96 Nasal Cannula 2 05/05/17 14:45 97.8 63 15 136/62 (86) 95 Nasal Cannula 2 05/05/17 14:30 62 15 131/63 (85) 95 Nasal Cannula 2 05/05/17 14:15 64 14 123/62 (82) 100 Nasal Cannula 3 05/05/17 14:00 62 14 114/56 (75) 97 Nasal Cannula 3 05/05/17 13:50 97.4 60 10 118/55 (76) 96 Nasal Cannula 3 05/05/17 10:30 64 18 100 05/05/17 10:14 Nasal Cannula 3 05/05/17 10:05 95.6 69 17 115/60 (78) 100 05/05/17 08:00 96.9 73 18 83/49 (60) 94 05/05/17 04:59 18 05/05/17 04:50 96.5 77 18 136/73 (94) 94 05/05/17 04:00 77 05/05/17 02:20 Nasal Cannula 2.00 05/05/17 00:00 75 05/04/17 23:50 97.9 76 17 114/59 (77) 96 05/04/17 22:00 97.8 68 18 127/67 (87) 99 05/04/17 21:11 98 Nasal Cannula 2.00 05/04/17 20:00 98.6 73 18 115/57 (76) 100 05/04/17 20:00 73 05/04/17 19:00 100 Nasal Cannula 2.00 05/04/17 18:00 77 05/04/17 16:36 14 -: 05/05/17 0714 05/05/17 0714 Physical Exam General Appearance: Well Developed, Well Nourished Neck Neck Exam: Neck Supple Pulmonary Resp Exam: Clear Bilaterally, Decreased Bases Gastrointestinal/Abdomen GI Exam: Soft, Non-Tender, Bowel Sounds Present Extremeties Extremities Exam: Moderate Edema, Pitting Edema Assessment/Plan Problem List: (1) ESRD (end stage renal disease) on dialysis ICD Codes: N18.6 - End stage renal disease; Z99.2 - Dependence on renal dialysis Plan: C3-C4 normal CHAD neg PhosLo 667 mg tid with meals. Nephrocaps daily HD is MWF AVF Rt forearm by Dr. Lauren harding was lethargic but now better post Narcan L thoracotomy CT in place (2) Acute renal failure ICD Codes: N17.9 - Acute kidney failure, unspecified Plan: ESRD. Dialysis through PermCath. He is positive for Hepatitis C Ab , RNA negative (3) CKD (chronic kidney disease), stage V ICD Codes: N18.5 - Chronic kidney disease, stage 5 Plan: May have reached ESRD. (4) Diabetes ICD Codes: E11.9 - Type 2 diabetes mellitus without complications Status: Chronic Plan: Complications including renal failure (5) Hypertension ICD Codes: I10 - Essential (primary) hypertension Plan: Continue to monitor progress (6) Anemia ICD Codes: D64.9 - Anemia, unspecified Plan: Continue to monitor on Procrit Problem Qualifiers (1) Diabetes: (2) Hypertension: Qualified Codes: I10 - Essential (primary) hypertension Jeremy Light MD May 05, 2017 16:35
--- NOTE | 2017-05-05 21:41 | MP ---
cc: Yvon Snyder MD DATE OF OPERATION: 05/05/2017 PREOPERATIVE DIAGNOSES: Chronic renal failure and respiratory insufficiency. POSTOPERATIVE DIAGNOSES: Chronic renal failure and respiratory insufficiency. PROCEDURE: Right forearm AV fistula. SURGEON: Yvon Snyder MD ANESTHESIA: General. ESTIMATED BLOOD LOSS: About 10 mL. DESCRIPTION OF PROCEDURE: The patient prepped and draped in usual fashion. Incision is made about 2 inches above the wrist vertically exposing the cephalic vein. Cephalic vein is fairly large and suitable for fistula. There are some smaller branches coming in. These are ligated with 3-0 silk and divided. The radial artery is now exposed and this one is also suitable, although it appears to be already somewhat sclerotic. Vessel loops are placed around the radial artery. The patient given 5000 units of heparin. The cephalic vein is then dissected a little bit distally and then divided. Small branches are ligated and then the vein is turned downward toward the artery. It is dilated successively with dilators and then inflated with heparinized saline on the syringe and olive tip. The artery is now clamped with ____ clamps and then incisions made measured about 6 mm in length with Cook scissors. The vein is now spatulated and then anastomosis created with running 6-0 Prolene. Once the side to end anastomosis is completed with artery and vein, blood flow is reestablished. At this point the patient has excellent flow in the artery distally into the hand and also a thrill in the vein and flow proximally. Again care was taken that all the visible branches of the cephalic vein are ligated in order not to create steal. Area irrigated with copious amounts of saline and closed with 3-0 Monocryl, benzoin and Steri-strips applied. At the end of the procedure the patient has excellent capillary refill and distal perfusion. Yvon Snyder MD SJ/rt , 07:41 PM , 09:40 PM
[2017-05-06] VITALS (11 sets, daily range): BP systolic 112–148; BP diastolic 59–74; PULSE 68–77; RESP 10–19; TEMP 95.9–97.3; O2SAT 85–100
[2017-05-06] MEDS: PIPERACIL-TAZO 2.25 GM PREMIX 50 ML IV SCH ×5 (00:26→23:25)
[2017-05-06] MEDS: RESP: ALBUTEROL 2.5 MG/IPRATROPIUM 0.5 MG NEB (SCH) NEB ×3 (02:41→16:00)
[2017-05-06] MEDS: ONDANSETRON HCL 4 MG/2 ML VIAL IV PUSH PRN (03:25)
--- NOTE | 2017-05-06 04:26 | RADRPT ---
EXAM DATE/TIME: 05/06/2017 03:53 [facility] COMPARISON: CHEST SINGLE AP, May 03, 2017, 4:11. INDICATIONS : Evaluate for pneumothorax, post chest tube placement. MEDICAL HISTORY : Congestive heart failure. Hypertension Renal insufficiency, chronic Diabetes. Measles. Anemia. Hepati tis C. SURGICAL HISTORY : Bilateral knee surgery. Toe amputation. ENCOUNTER: Initial ACUITY: 1 day PAIN SCORE: Non-responsive. LOCATION: Left chest FINDINGS: Left thoracotomy changes are again noted with a chest tube. A small apical pneumothorax is apparent l eft base consolidation not significantly changed. Right lung remains clear. There is a right internal jugular double-lumen tunneled dialysis catheter with distal tip in the righ t atrium. Right atrial enlargement again noted. CONCLUSION: Tiny left apical pneumothorax without tension. Left base consolidation unchanged. Danilo Contreras MD on May 06, 2017 at 4:22 Board Certified Radiologist. This report was verified electronically.
[2017-05-06] MEDS: INSULIN ASPART SUPPLEMENTAL SCALE SQ SCH ×4 (04:38→23:26)
[2017-05-06 05:09] LABS: AUTOMATED NEUTROPHIL # 8.2 TH/MM3 (1.8-7.7); BASOPHIL % 0.3 % (0.0-2.0); HEMATOCRIT 24.9 % (39.0-51.0); HEMOGLOBIN 8.6 GM/DL (13.0-17.0); LYMPH % 4.7 % (9.0-44.0); LYMPHOCYTE # 0.4 TH/MM3 (1.0-4.8); MEAN CELL VOLUME 89.8 FL (80.0-100.0); MEAN CORPUSCULAR HEMOGLOBIN 30.8 PG (27.0-34.0); MEAN CORPUSCULAR HGB CONC 34.3 % (32.0-36.0); MEAN PLATELET VOLUME 7.4 FL (7.0-11.0); MONO % 7.3 % (0.0-8.0); MONOCYTE # 0.7 TH/MM3 (0-0.9); NEUT % 87.7 % (16.0-70.0); PLATELET COUNT 188 TH/MM3 (150-450); RED BLOOD COUNT 2.77 MIL/MM3 (4.50-5.90); RED CELL DISTRIBUTION WIDTH 15.7 % (11.6-17.2); WHITE BLOOD COUNT 9.3 TH/MM3 (4.0-11.0)
[2017-05-06 05:41] LABS: BICARBONATE 28.2 MEQ/L (21.0-32.0); CALCIUM 8.2 MG/DL (8.5-10.1); CREATININE 5.1 MG/DL (0.60-1.30)
[2017-05-06] MEDS: hydrALAZINE HCL 25 MG TAB PO SCH ×3 (05:49→23:26)
[2017-05-06] MEDS: FUROSEMIDE 20 MG TAB PO SCH ×2 (08:40→19:00)
[2017-05-06] MEDS: CARVEDILOL 12.5 MG TAB PO SCH ×2 (08:40→21:10)
[2017-05-06] MEDS: PANTOPRAZOLE SOD 40 MG DELAYED RELEASE TAB PO SCH (08:42)
[2017-05-06] MEDS: HEPARIN SODIUM - SQ 10,000 UNITS/ML VIAL SQ SCH ×2 (08:43→21:10)
[2017-05-06] MEDS: CALCIUM ACETATE 667 MG CAP PO SCH ×3 (08:43→18:59)
[2017-05-06] MEDS: SODIUM CHLORIDE 0.9% FLUSH 10 ML FLUSH IV FLUSH SCH ×2 (08:43→21:10)
[2017-05-06] MEDS: VITAMIN B CMPLX/VITC/FOLIC AC CAP PO SCH (08:43)
--- NOTE | 2017-05-06 12:03 | PD.CAR.PN ---
CVT Progress Note Subjective/Hospital Course: pt not in room 05/25, 05/26 Ct chest was ordered / will see today eval for left vats and decortication 04/29/2017 Patient initially scheduled for AV fistula right arm but patient does have an IV in his antecubital vein and in cephalic vein just above the wrist. Considering the patient's left-handed right arm was to be used for the AV fistula but now have to wait until these vessels heal up. In face of pending thoracoscopy /thoracotomy and decortication of the lung will wait till that is all done and then will deal with the AV fistula This will allow for patient also to heal the right arm and make the vein usable. 05/01/2017 Right arm is now ready for AV fistula Patient is fairly good veins and I may use antecubital vein either a basilic or cephalic vein to make a loop or perhaps do an upper arm fistula depending on situation on the table In addition I have discussed the care with Dr. Valero, and patient is scheduled to undergo tomorrow the thoracotomy and evacuation of left empyema with decortication of the lung In order to save patient want surgery will proceed with both at once so I will take over the entire case and do both parts. This plan will remain, unless there is significant amount of bleeding in the chest at the time of decortication at which point the AV fistula would of course be postponed. Discussed today at patient at length 05/03/2017 Patient doing well at this point Successfully extubated Bilateral good breath sounds Small air leak on the left side which is consistent with a decortication and several surface lung leaks Lung fully expanded Chest tube drainage decreased All things equal patient can be transferred to floor will be started on regular diet Start on heparin sq for prophylaxis Patient doing great at this time but needs to deep breathe and cough 05/04/2017 Patient doing very well status post left thoracotomy and decortication Chest tube drainage decreased to about 150 cc over 24 hours and patient is a tiny air leak Good pulmonary expansion and patient taking good breaths We will keep both chest tubes in for another few days until the air leak resolves and then pull them out one by one Patient can transfer to floor at this time For right AV fistula tomorrow Appreciate help from nephrology and internal medicine 05/06/2018 Status post right AV fistula to the forearm Patient has excellent bruit and thrill in the cephalic vein and this fistula should develop very nicely in the next month or 2 Left chest basal tube removed yesterday Lung fully expanded with tiny chest tube air leak so we will leave everything as is for the time being likely will remove chest tube on Tuesday or Tuesday for by that time probably air leak will resolve After decortication and takes a while for the lungs to heal over Objective: Vital Signs Date Time Temp Pulse Resp B/P (MAP) Pulse Ox O2 Delivery O2 Flow Rate FiO2 05/06/17 11:38 96.1 70 19 115/65 (82) 98 05/06/17 09:23 99 Nasal Cannula 2.00 05/06/17 08:00 97 Nasal Cannula 2.00 05/06/17 07:42 95.9 69 19 112/59 (76) 99 05/06/17 02:59 68 17 148/74 (98) 100 05/06/17 02:54 73 10 126/66 (86) 85 05/06/17 00:00 69 05/05/17 23:35 97.3 69 16 98/52 (67) 100 05/05/17 22:57 Nasal Cannula 3.00 05/05/17 20:58 98 Nasal Cannula 05/05/17 20:50 96.9 72 16 129/71 (90) 99 05/05/17 16:30 96.4 70 21 131/70 (90) 99 05/05/17 14:55 64 15 96 Nasal Cannula 2 05/05/17 14:45 97.8 63 15 136/62 (86) 95 Nasal Cannula 2 05/05/17 14:30 62 15 131/63 (85) 95 Nasal Cannula 2 05/05/17 14:15 64 14 123/62 (82) 100 Nasal Cannula 3 05/05/17 14:00 62 14 114/56 (75) 97 Nasal Cannula 3 05/05/17 13:50 97.4 60 10 118/55 (76) 96 Nasal Cannula 3 Labs: Laboratory Tests Test 05/06/17 04:44 White Blood Count 9.3 TH/MM3 (4.0-11.0) Red Blood Count 2.77 MIL/MM3 (4.50-5.90) Hemoglobin 8.6 GM/DL (13.0-17.0) Hematocrit 24.9 % (39.0-51.0) Mean Corpuscular Volume 89.8 FL (80.0-100.0) Mean Corpuscular Hemoglobin 30.8 PG (27.0-34.0) Mean Corpuscular Hemoglobin Concent 34.3 % (32.0-36.0) Red Cell Distribution Width 15.7 % (11.6-17.2) Platelet Count 188 TH/MM3 (150-450) Mean Platelet Volume 7.4 FL (7.0-11.0) Neutrophils (%) (Auto) 87.7 % (16.0-70.0) Lymphocytes (%) (Auto) 4.7 % (9.0-44.0) Monocytes (%) (Auto) 7.3 % (0.0-8.0) Eosinophils (%) (Auto) 0.0 % (0.0-4.0) Basophils (%) (Auto) 0.3 % (0.0-2.0) Neutrophils # (Auto) 8.2 TH/MM3 (1.8-7.7) Lymphocytes # (Auto) 0.4 TH/MM3 (1.0-4.8) Monocytes # (Auto) 0.7 TH/MM3 (0-0.9) Eosinophils # (Auto) 0.0 TH/MM3 (0-0.4) Basophils # (Auto) 0.0 TH/MM3 (0-0.2) CBC Comment DIFF FINAL Differential Comment Blood Urea Nitrogen 46 MG/DL (7-18) Creatinine 5.10 MG/DL (0.60-1.30) Random Glucose 203 MG/DL (74-106) Calcium Level 8.2 MG/DL (8.5-10.1) Sodium Level 137 MEQ/L (136-145) Potassium Level 5.0 MEQ/L (3.5-5.1) Chloride Level 99 MEQ/L (98-107) Carbon Dioxide Level 28.2 MEQ/L (21.0-32.0) Anion Gap 10 MEQ/L (5-15) Estimat Glomerular Filtration Rate 12 ML/MIN (>89) Result Diagram: 05/06/1744305/06/17443 (1) Hypertensive heart and chronic kidney disease with heart failure Plan: defer to nephrology. LVEF 40-45% with LVH (2) CKD (chronic kidney disease), stage V (3) Loculated pleural effusion Plan: consult Dr. Ben Valero (4) Iron deficiency anemia Plan: Cardiology cleared for EGDE/ colonoscopy Yvon Snyder MD May 06, 2017 12:03
--- NOTE | 2017-05-06 13:44 | HHI.PR ---
Subjective Remarks Follow up pleural effusion, renal failure, CHF. Patient became more sedated shortly after I left his room yesterday. [facility] was called. Patient was given Narcan and responded quickly. No further episodes overnight. No chest pain, dyspnea. Objective Vitals Vital Signs Date Time Temp Pulse Resp B/P (MAP) Pulse Ox O2 Delivery O2 Flow Rate FiO2 05/06/17 11:38 96.1 70 19 115/65 (82) 98 05/06/17 09:23 99 Nasal Cannula 2.00 05/06/17 08:00 97 Nasal Cannula 2.00 05/06/17 07:42 95.9 69 19 112/59 (76) 99 05/06/17 02:59 68 17 148/74 (98) 100 05/06/17 02:54 73 10 126/66 (86) 85 05/06/17 00:00 69 05/05/17 23:35 97.3 69 16 98/52 (67) 100 05/05/17 22:57 Nasal Cannula 3.00 05/05/17 20:58 98 Nasal Cannula 05/05/17 20:50 96.9 72 16 129/71 (90) 99 05/05/17 16:30 96.4 70 21 131/70 (90) 99 05/05/17 14:55 64 15 96 Nasal Cannula 2 05/05/17 14:45 97.8 63 15 136/62 (86) 95 Nasal Cannula 2 05/05/17 14:30 62 15 131/63 (85) 95 Nasal Cannula 2 05/05/17 14:15 64 14 123/62 (82) 100 Nasal Cannula 3 05/05/17 14:00 62 14 114/56 (75) 97 Nasal Cannula 3 05/05/17 13:50 97.4 60 10 118/55 (76) 96 Nasal Cannula 3 I/O 05/05/17 05/05/17 05/05/17 05/06/17 05/06/17 05/06/17 07:00 15:00 23:00 07:00 15:00 23:00 Intake Total 340 ml 100 ml 360 ml 340 ml Output Total 150 ml 610 ml 30 ml 50 ml Balance 190 ml -510 ml 330 ml 290 ml Intake Oral 240 ml 360 ml 240 ml IV Total 100 ml 100 ml Other 100 ml Output Urine Total 600 ml Chest Tube Drainage Total 150 ml 30 ml 50 ml Estimated Blood Loss 10 ml # Voids 0 0 1 1 # Bowel Movements 0 0 0 Result Diagram: 05/06/17 0444 05/06/17 0444 Imaging Last Impressions Chest X-Ray 05/06/17 0000 Signed Impressions: Service Date/Time: Saturday, May 06, 2017 03:53 - CONCLUSION: Tiny left apical pneumothorax without tension. Left base consolidation unchanged. Danilo Contreras MD Upper Extremity Ultrasound 04/28/17 0000 Signed Impressions: Service Date/Time: April 17:55 - CONCLUSION: No evidence of upper extremity DVT. Leif Espinosa MD Catheter Placement X-Ray 04/28/17 0000 Signed Impressions: Service Date/Time: April 09:21 - CONCLUSION: Uncomplicated PermaCath placement as above. Mark Maravilla MD Chest CT 04/27/17 0000 Signed Impressions: Service Date/Time: Thursday, April 27, 2017 15:55 - CONCLUSION: 1. Residual large left pleural effusion with associated parietal pleural thickening. There is compressive atelectasis within the left lung and possible consolidation in the left upper lobe. 2. Small simple appearing right pleural effusion with mild compressive atelectasis in the right lower lobe. 3. There is a small volume of free fluid in the upper abdomen. Danilo Carney MD Thoracentesis Ultrasound 04/26/17 0000 Signed Impressions: Service Date/Time: Wednesday, April 26, 2017 13:24 - CONCLUSION: Uncomplicated ultrasound guided thoracentesis. Robert Estrada MD Renal Ultrasound 04/26/17 0000 Signed Impressions: Service Date/Time: Wednesday, April 26, 2017 07:46 - CONCLUSION: Echogenic kidneys bilaterally compatible with medical renal disease. Trace ascites Mark Maravilla MD Objective Remarks General: No acute distress. Heart: Regular rate and rhythm. No murmur. Lungs: Clear to auscultation bilaterally. No wheezes, rales, or rhonchi. Breathing is nonlabored. Chest tube in place. Abdomen: Soft, nontender, nondistended. Extremities: No lower extremity edema. Psych: Alert, answers questions appropriately. Procedures Ultrasound-guided thoracentesis 04/26/2017. Echocardiogram 04/26/2017 Mildly dilated left ventricle. The left ventricular systolic function is moderately reduced with an estimated ejection fraction in the range of 40-45%. Mild LVH. The left atrial size is [id number] dilated. The right atrial size is [id number] dilated. Mild mitral valve regurgitation. Aortic valve sclerosis is present. There is mild to moderate tricuspid valve regurgitation. The estimated pulmonary arterial pressure is 64 mmHg. Mild pulmonary valve regurgitation. A right sided pleural effusion is present. A large left sided pleural effusion is noted. 05/02/17 anterolateral thoracotomy, decortication of the left lung, chest tube placement, evacuation of empyema 05/05/17 right forearm AV fistula Urinary Catheter: No Vascular Central Line Catheter: No A/P Problem List: (1) Bilateral pleural effusion ICD Code: J90 - Pleural effusion, not elsewhere classified (2) OSMANY (acute kidney injury) ICD Code: N17.9 - Acute kidney failure, unspecified (3) Diabetes mellitus, type 2 ICD Code: E11.9 - Type 2 diabetes mellitus without complications (4) CKD (chronic kidney disease), stage V ICD Code: N18.5 - Chronic kidney disease, stage 5 (5) Hypertension ICD Code: I10 - Essential (primary) hypertension Assessment and Plan 1. Bilateral pleural effusion: Likely secondary to CHF, chronic kidney disease. Status post thoracentesis. Status post thoracotomy with decortication and chest tube placement. The patient was extubated 05/03/17. Continue supplemental oxygen. Continue incentive spirometry. Chest tube management per cardiothoracic surgery. One tube removed yesterday. Second chest tube to remain in place for next 2-3 days. 2. Acute systolic congestive heart failure: Continue IV Lasix. Continue carvedilol. 3. Hypertension: Continue Coreg, hydralazine. Blood pressure is well controlled. 4. Diabetes mellitus: Monitor Accu-Cheks and cover with sliding scale insulin. 5. Acute renal failure superimposed on chronic kidney disease stage V: Continue dialysis per nephrology recommendations. Right arm AV fistula done . 6. Anemia: Possibly secondary to chronic kidney disease. Monitor H&H. 7. DVT prophylaxis: Heparin. 8. Episode of sedation following surgery: Likely due to anesthesia, Fentanyl patch. Responded to Narcan. Fentanyl patch removed. No further episodes. Discharge Planning When chest tube removed and cleared by CV surgery. Problem Qualifiers (1) Hypertension: Qualified Codes: I10 - Essential (primary) hypertension Jorge Mendieta MD May 06, 2017 13:44
--- NOTE | 2017-05-06 17:14 | HHI.NPPN ---
Subjective History of Present Illness 51 year old with IDDM, CKD stage 5, anemia, Sec HPTH Additional Remarks patient was seen and examined. He is comfortable. has left thoracotomy and decortication on 05/02 Review of Systems General Constitutional: Fatigue Cardiovascular Cardiac: Edema Objective Data Data 05/06/17 05/07/17 19:00 07:00 Intake Total 650 ml Output Total 2000 ml Balance -1350 ml Intake Oral 650 ml Hemodialysis 2000 ml Vital Signs Date Time Temp Pulse Resp B/P (MAP) Pulse Ox O2 Delivery O2 Flow Rate FiO2 05/06/17 11:38 96.1 70 19 115/65 (82) 98 05/06/17 09:23 99 Nasal Cannula 2.00 05/06/17 08:00 97 Nasal Cannula 2.00 05/06/17 07:42 95.9 69 19 112/59 (76) 99 05/06/17 02:59 68 17 148/74 (98) 100 05/06/17 02:54 73 10 126/66 (86) 85 05/06/17 00:00 69 05/05/17 23:35 97.3 69 16 98/52 (67) 100 05/05/17 22:57 Nasal Cannula 3.00 05/05/17 20:58 98 Nasal Cannula 05/05/17 20:50 96.9 72 16 129/71 (90) 99 -: 05/06/17 0444 05/06/17 0444 Physical Exam General Appearance: Well Developed, Well Nourished Neck Neck Exam: Neck Supple Pulmonary Resp Exam: Clear Bilaterally, Decreased Bases Gastrointestinal/Abdomen GI Exam: Soft, Non-Tender, Bowel Sounds Present Extremeties Extremities Exam: Moderate Edema, Pitting Edema Assessment/Plan Problem List: (1) ESRD (end stage renal disease) on dialysis ICD Codes: N18.6 - End stage renal disease; Z99.2 - Dependence on renal dialysis Plan: C3-C4 normal CHAD neg PhosLo 667 mg tid with meals. Nephrocaps daily HD is MWF seen during dialysis UF 2 L AVF Rt forearm by Dr. Lauren harding was lethargic but now better post Narcan L thoracotomy CT in place (2) Acute renal failure ICD Codes: N17.9 - Acute kidney failure, unspecified Plan: ESRD. Dialysis through [facility]. He is positive for Hepatitis C Ab , RNA negative (3) CKD (chronic kidney disease), stage V ICD Codes: N18.5 - Chronic kidney disease, stage 5 Plan: May have reached ESRD. (4) Diabetes ICD Codes: E11.9 - Type 2 diabetes mellitus without complications Status: Chronic Plan: Complications including renal failure (5) Hypertension ICD Codes: I10 - Essential (primary) hypertension Plan: Continue to monitor progress (6) Anemia ICD Codes: D64.9 - Anemia, unspecified Plan: Continue to monitor on Procrit Problem Qualifiers (1) Diabetes: (2) Hypertension: Qualified Codes: I10 - Essential (primary) hypertension Jeremy Light MD May 06, 2017 17:14
[2017-05-07] VITALS (11 sets, daily range): BP systolic 100–139; BP diastolic 59–78; PULSE 65–74; RESP 17–18; TEMP 96–97.1; O2SAT 96–99
[2017-05-07] MEDS: hydrALAZINE HCL 25 MG TAB PO SCH ×3 (04:48→19:49)
[2017-05-07] MEDS: PIPERACIL-TAZO 2.25 GM PREMIX 50 ML IV SCH ×3 (04:48→17:07)
[2017-05-07] MEDS: INSULIN ASPART SUPPLEMENTAL SCALE SQ SCH ×4 (04:54→23:00)
[2017-05-07] MEDS: PANTOPRAZOLE SOD 40 MG DELAYED RELEASE TAB PO SCH (08:17)
[2017-05-07] MEDS: CALCIUM ACETATE 667 MG CAP PO SCH ×3 (08:17→17:15)
[2017-05-07] MEDS: FUROSEMIDE 20 MG TAB PO SCH ×2 (08:17→17:15)
[2017-05-07] MEDS: SODIUM CHLORIDE 0.9% FLUSH 10 ML FLUSH IV FLUSH SCH ×2 (08:18→19:57)
[2017-05-07] MEDS: CARVEDILOL 12.5 MG TAB PO SCH ×2 (08:18→19:49)
[2017-05-07] MEDS: HEPARIN SODIUM - SQ 10,000 UNITS/ML VIAL SQ SCH ×2 (08:18→19:58)
[2017-05-07] MEDS: VITAMIN B CMPLX/VITC/FOLIC AC CAP PO SCH (08:18)
--- NOTE | 2017-05-07 09:49 | HHI.NPPN ---
Subjective History of Present Illness 51 year old with IDDM, CKD stage 5, anemia, Sec HPTH Additional Remarks Resting comfortably. No SOB or edema. CT intact (Zhanna Eng) Review of Systems General Constitutional: Fatigue (Zhanna Eng) Respiratory Respiratory Remarks Denies SOB (Zhanna Eng) Cardiovascular Cardiac: Edema (Zhanna Eng) Gastrointestinal GI Remarks No abdominal pain (Zhanna Eng) Objective Data Data Vital Signs Date Time Temp Pulse Resp B/P (MAP) Pulse Ox O2 Delivery O2 Flow Rate FiO2 05/07/17 08:00 96.8 72 18 131/62 (85) 98 05/07/17 04:50 96.9 74 17 139/78 (98) 99 05/07/17 04:00 74 05/06/17 23:54 76 05/06/17 23:32 97.3 73 18 125/61 (82) 98 05/06/17 21:40 98 Nasal Cannula 2.00 05/06/17 21:15 Nasal Cannula 1.00 05/06/17 20:40 97.0 76 18 125/73 (90) 96 05/06/17 20:00 77 05/06/17 11:38 96.1 70 19 115/65 (82) 98 (Zhanna Eng) -: 05/06/17 0444 05/06/17 0444 Physical Exam General Appearance: Well Developed, Well Nourished (Zhanna Eng) Neck Neck Exam: Neck Supple (Zhanna Eng) Pulmonary Resp Exam: Clear Bilaterally, Decreased Bases (Zhanna Eng) Gastrointestinal/Abdomen GI Exam: Soft, Non-Tender, Bowel Sounds Present (Zhanna Eng) Extremeties Extremities Exam: Moderate Edema, Pitting Edema (Zhanna Eng) Assessment/Plan Problem List: (1) ESRD (end stage renal disease) on dialysis ICD Codes: N18.6 - End stage renal disease; Z99.2 - Dependence on renal dialysis Plan: C3-C4 normal CHAD neg PhosLo 667 mg tid with meals. Nephrocaps daily HD is MWF AVF Rt forearm by Dr. Lauren harding HD yesterday and 3 liters removed L thoracotomy CT in place (2) Acute renal failure ICD Codes: N17.9 - Acute kidney failure, unspecified Plan: ESRD. Dialysis through [facility]. He is positive for Hepatitis C Ab , RNA negative (3) CKD (chronic kidney disease), stage V ICD Codes: N18.5 - Chronic kidney disease, stage 5 Plan: May have reached ESRD. (4) Diabetes ICD Codes: E11.9 - Type 2 diabetes mellitus without complications Status: Chronic Plan: Complications including renal failure (5) Hypertension ICD Codes: I10 - Essential (primary) hypertension Plan: Continue to monitor progress (6) Anemia ICD Codes: D64.9 - Anemia, unspecified Plan: Continue to monitor on Procrit (Zhanna Eng) Problem List: (1) ESRD (end stage renal disease) on dialysis ICD Codes: N18.6 - End stage renal disease; Z99.2 - Dependence on renal dialysis Plan: C3-C4 normal CHAD neg PhosLo 667 mg tid with meals. Nephrocaps daily HD is MWF AVF Rt forearm by Dr. Lauren harding HD yesterday and 3 liters removed L thoracotomy CT in place. Patient seen and examine, agree with above. HD as per schedule. (2) Acute renal failure ICD Codes: N17.9 - Acute kidney failure, unspecified Plan: ESRD. Dialysis through [facility]. He is positive for Hepatitis C Ab , RNA negative (3) CKD (chronic kidney disease), stage V ICD Codes: N18.5 - Chronic kidney disease, stage 5 Plan: May have reached ESRD. (4) Diabetes ICD Codes: E11.9 - Type 2 diabetes mellitus without complications Status: Chronic Plan: Complications including renal failure (5) Hypertension ICD Codes: I10 - Essential (primary) hypertension Plan: Continue to monitor progress (6) Anemia ICD Codes: D64.9 - Anemia, unspecified Plan: Continue to monitor on Procrit (Mely Brown MD) Problem Qualifiers (1) Diabetes: (2) Hypertension: Qualified Codes: I10 - Essential (primary) hypertension Zhanna Eng May 07, 2017 09:49 Mely Brown MD May 07, 2017 16:16
--- NOTE | 2017-05-07 10:55 | PD.CAR.PN ---
CVT Progress Note Subjective/Hospital Course: pt not in room 05/25, 05/26 Ct chest was ordered / will see today eval for left vats and decortication 04/29/2017 Patient initially scheduled for AV fistula right arm but patient does have an IV in his antecubital vein and in cephalic vein just above the wrist. Considering the patient's left-handed right arm was to be used for the AV fistula but now have to wait until these vessels heal up. In face of pending thoracoscopy /thoracotomy and decortication of the lung will wait till that is all done and then will deal with the AV fistula This will allow for patient also to heal the right arm and make the vein usable. 05/01/2017 Right arm is now ready for AV fistula Patient is fairly good veins and I may use antecubital vein either a basilic or cephalic vein to make a loop or perhaps do an upper arm fistula depending on situation on the table In addition I have discussed the care with Dr. Vaelro, and patient is scheduled to undergo tomorrow the thoracotomy and evacuation of left empyema with decortication of the lung In order to save patient want surgery will proceed with both at once so I will take over the entire case and do both parts. This plan will remain, unless there is significant amount of bleeding in the chest at the time of decortication at which point the AV fistula would of course be postponed. Discussed today at patient at length 05/03/2017 Patient doing well at this point Successfully extubated Bilateral good breath sounds Small air leak on the left side which is consistent with a decortication and several surface lung leaks Lung fully expanded Chest tube drainage decreased All things equal patient can be transferred to floor will be started on regular diet Start on heparin sq for prophylaxis Patient doing great at this time but needs to deep breathe and cough 05/04/2017 Patient doing very well status post left thoracotomy and decortication Chest tube drainage decreased to about 150 cc over 24 hours and patient is a tiny air leak Good pulmonary expansion and patient taking good breaths We will keep both chest tubes in for another few days until the air leak resolves and then pull them out one by one Patient can transfer to floor at this time For right AV fistula tomorrow Appreciate help from nephrology and internal medicine 05/06/2018 Status post right AV fistula to the forearm Patient has excellent bruit and thrill in the cephalic vein and this fistula should develop very nicely in the next month or 2 Left chest basal tube removed yesterday Lung fully expanded with tiny chest tube air leak so we will leave everything as is for the time being likely will remove chest tube on Tuesday or Tuesday for by that time probably air leak will resolve After decortication and takes a while for the lungs to heal over 05/07/2017 Chest tube in the left chest has no air leak and minimal drainage Lung appears to be sealed There will be an occasional patient that despite the chest tube removal without a leak, will develop a small pneumothorax and if enlarging, at that point we will place a pigtail catheter Incision clean and dry As far as the AV fistula right arm is concerned this is nice and patent with excellent thrill and bruit in cephalic vein Unfortunately somebody placed a blood group armband very tightly over the arm just on the fistula site and if I had not found it now, it would have occluded the fistula and obliterated the vein Care has to be taken not to place anything on the arm after creation of an AV fistula especially in the early postop period I have discussed this with the charge nurse Objective: Vital Signs Date Time Temp Pulse Resp B/P (MAP) Pulse Ox O2 Delivery O2 Flow Rate FiO2 05/07/17 10:13 72 05/07/17 10:13 1.00 05/07/17 08:00 96.8 72 18 131/62 (85) 98 05/07/17 04:50 96.9 74 17 139/78 (98) 99 05/07/17 04:00 74 05/06/17 23:54 76 05/06/17 23:32 97.3 73 18 125/61 (82) 98 05/06/17 21:40 98 Nasal Cannula 2.00 05/06/17 21:15 Nasal Cannula 1.00 05/06/17 20:40 97.0 76 18 125/73 (90) 96 05/06/17 20:00 77 05/06/17 11:38 96.1 70 19 115/65 (82) 98 Result Diagram: 05/06/1744305/06/17443 (1) Hypertensive heart and chronic kidney disease with heart failure Plan: defer to nephrology. LVEF 40-45% with LVH (2) CKD (chronic kidney disease), stage V (3) Loculated pleural effusion Plan: consult Dr. Ben Valero (4) Iron deficiency anemia Plan: Cardiology cleared for EGDE/ colonoscopy Yvon Snyder MD May 07, 2017 10:55
--- NOTE | 2017-05-07 12:10 | RADRPT ---
EXAM DATE/TIME: 05/07/2017 11:00 [facility] COMPARISON: CHEST SINGLE AP, May 06, 2017, 3:53. INDICATIONS : Chest tube removal, left. MEDICAL HISTORY : Congestive heart failure. Hypertension Renal insufficiency, chronic. Diabetes. Measles. Anemia. Hepat itis C. SURGICAL HISTORY : Bilateral knee surgery. Toe amputation. ENCOUNTER: Initial ACUITY: 1 day PAIN SCORE: 0/10 LOCATION: Bilateral chest FINDINGS: Extensive air space disease remains evident throughout the left lung. The left-sided chest tube has b een removed. There is no evidence of pneumothorax. Pleural-based density in left apex and left latera l chest wall has the appearance of loculated fluid. Right lung is well expanded and clear. Tunneled dialysis catheter is identified on the right. CONCLUSION: 1. Status post left chest tube removal with no evidence of pneumothorax. 2. Extensive left lung airspace disease; unchanged. 3. Stable cardiomegaly. Adithya Hough MD on May 07, 2017 at 12:06 Board Certified Radiologist. This report was verified electronically.
--- NOTE | 2017-05-07 13:10 | HHI.PR ---
Subjective Remarks Follow up pleural effusion, CHF, renal failure. Left chest tube was removed this morning. Patient denies dyspnea, chest pain. Still with minor pain at chest tube site, but it is improving. Objective Vitals Vital Signs Date Time Temp Pulse Resp B/P (MAP) Pulse Ox O2 Delivery O2 Flow Rate FiO2 05/07/17 12:00 96.7 69 17 124/75 (91) 96 05/07/17 10:13 72 05/07/17 10:13 1.00 05/07/17 08:00 96.8 72 18 131/62 (85) 98 05/07/17 04:50 96.9 74 17 139/78 (98) 99 05/07/17 04:00 74 05/06/17 23:54 76 05/06/17 23:32 97.3 73 18 125/61 (82) 98 05/06/17 21:40 98 Nasal Cannula 2.00 05/06/17 21:15 Nasal Cannula 1.00 05/06/17 20:40 97.0 76 18 125/73 (90) 96 05/06/17 20:00 77 I/O 05/06/17 05/06/17 05/06/17 05/07/17 05/07/17 05/07/17 07:00 15:00 23:00 07:00 15:00 23:00 Intake Total 340 ml 650 ml 360 ml 410 ml Output Total 50 ml 2000 ml 20 ml Balance 290 ml 650 ml -1640 ml 390 ml Intake Oral 240 ml 650 ml 360 ml 360 ml IV Total 100 ml 50 ml Chest Tube Drainage Total 50 ml 20 ml Hemodialysis 2000 ml # Voids 1 0 0 # Bowel Movements 0 0 0 Result Diagram: 05/06/17 0444 05/06/17 0444 Imaging Last Impressions Chest X-Ray 05/07/17 0000 Signed Impressions: Service Date/Time: Sunday, May 07, 2017 11:00 - CONCLUSION: 1. Status post left chest tube removal with no evidence of pneumothorax. 2. Extensive left lung airspace disease; unchanged. 3. Stable cardiomegaly. Adithya Hough MD Upper Extremity Ultrasound 04/28/17 0000 Signed Impressions: Service Date/Time: April 17:55 - CONCLUSION: No evidence of upper extremity DVT. Leif Espinosa MD Catheter Placement X-Ray 04/28/17 0000 Signed Impressions: Service Date/Time: April 09:21 - CONCLUSION: Uncomplicated PermaCath placement as above. Mark Maravilla MD Chest CT 04/27/17 0000 Signed Impressions: Service Date/Time: Thursday, April 27, 2017 15:55 - CONCLUSION: 1. Residual large left pleural effusion with associated parietal pleural thickening. There is compressive atelectasis within the left lung and possible consolidation in the left upper lobe. 2. Small simple appearing right pleural effusion with mild compressive atelectasis in the right lower lobe. 3. There is a small volume of free fluid in the upper abdomen. Danilo Carney MD Thoracentesis Ultrasound 04/26/17 0000 Signed Impressions: Service Date/Time: Wednesday, April 26, 2017 13:24 - CONCLUSION: Uncomplicated ultrasound guided thoracentesis. Robert Estrada MD Renal Ultrasound 04/26/17 0000 Signed Impressions: Service Date/Time: Wednesday, April 26, 2017 07:46 - CONCLUSION: Echogenic kidneys bilaterally compatible with medical renal disease. Trace ascites Mark Maravilla MD Objective Remarks General: No acute distress. Sitting up in a chair. Heart: Regular rate and rhythm. No murmur. Lungs: Clear to auscultation bilaterally. No wheezes, rales, or rhonchi. Breathing is nonlabored. Abdomen: Soft, nontender, nondistended. Extremities: No lower extremity edema. Psych: Alert, answers questions appropriately. Procedures Ultrasound-guided thoracentesis 04/26/2017. Echocardiogram 04/26/2017 Mildly dilated left ventricle. The left ventricular systolic function is moderately reduced with an estimated ejection fraction in the range of 40-45%. Mild LVH. The left atrial size is ijbobjpk-zk-mwpjvdio dilated. The right atrial size is hwqz-ow-jmuxjppmnf dilated. Mild mitral valve regurgitation. Aortic valve sclerosis is present. There is mild to moderate tricuspid valve regurgitation. The estimated pulmonary arterial pressure is 64 mmHg. Mild pulmonary valve regurgitation. A right sided pleural effusion is present. A large left sided pleural effusion is noted. 05/02/17 anterolateral thoracotomy, decortication of the left lung, chest tube placement, evacuation of empyema 05/05/17 right forearm AV fistula Urinary Catheter: No Vascular Central Line Catheter: No A/P Problem List: (1) Bilateral pleural effusion ICD Code: J90 - Pleural effusion, not elsewhere classified (2) OSMANY (acute kidney injury) ICD Code: N17.9 - Acute kidney failure, unspecified (3) Diabetes mellitus, type 2 ICD Code: E11.9 - Type 2 diabetes mellitus without complications (4) CKD (chronic kidney disease), stage V ICD Code: N18.5 - Chronic kidney disease, stage 5 (5) Hypertension ICD Code: I10 - Essential (primary) hypertension Assessment and Plan 1. Bilateral pleural effusion: Likely secondary to CHF, chronic kidney disease. Status post thoracentesis. Status post thoracotomy with decortication and chest tube placement. The patient was extubated 05/03/17. Continue supplemental oxygen. Continue incentive spirometry. Both chest tubes removed. Repeat CXR ordered for tomorrow AM. 2. Acute systolic congestive heart failure: Continue Lasix. Continue carvedilol. 3. Hypertension: Continue Coreg, hydralazine. Blood pressure is well controlled. 4. Diabetes mellitus: Monitor Accu-Cheks and cover with sliding scale insulin. 5. Acute renal failure superimposed on chronic kidney disease stage V: Continue dialysis per nephrology recommendations. Right arm AV fistula done . 6. Anemia: Possibly secondary to chronic kidney disease. Monitor H&H. 7. DVT prophylaxis: Heparin. 8. Episode of sedation following surgery: Likely due to anesthesia, Fentanyl patch. Responded to Narcan. Fentanyl patch removed. No further episodes. Discharge Planning When cleared by CV surgery. Problem Qualifiers (1) Hypertension: Qualified Codes: I10 - Essential (primary) hypertension Jorge Mendieta MD May 07, 2017 13:10
[2017-05-07] MEDS ORDERED: REMOVE OLD DURAGESIC (FENTANYL) PATCH T-DERMAL SCH (16:00)
[2017-05-08] VITALS (8 sets, daily range): BP systolic 121–142; BP diastolic 67–80; PULSE 65–70; RESP 17–18; TEMP 96.1–97; O2SAT 94–98
[2017-05-08] MEDS: PIPERACIL-TAZO 2.25 GM PREMIX 50 ML IV SCH ×3 (00:10→11:49)
[2017-05-08] MEDS: INSULIN ASPART SUPPLEMENTAL SCALE SQ SCH ×4 (05:00→23:00)
[2017-05-08] MEDS: hydrALAZINE HCL 25 MG TAB PO SCH ×3 (05:48→20:55)
--- NOTE | 2017-05-08 06:02 | RADRPT ---
EXAM DATE/TIME: 05/08/2017 03:43 [facility] COMPARISON: CHEST SINGLE AP, May 07, 2017, 11:00. INDICATIONS : Chest tube removal. MEDICAL HISTORY : Congestive heart failure. Hypertension Renal insufficiency,Diabetes. Measles. Anemia. Hepatitis C. SURGICAL HISTORY : Toe amputation. ENCOUNTER: Subsequent ACUITY: 2 days PAIN SCORE: Non-responsive. LOCATION: Left chest FINDINGS: Left thoracotomy changes are again noted. There is persistent parenchymal consolidation of the left b ase, not significantly changed. There is a small to moderate left pleural effusion, some of which is loculated laterally and apically. I don't see a pneumothorax. Right lung remains clear. Right IJ tunneled double-lumen dialysis catheter with distal tip at the atriocaval junction is unchan ged. CONCLUSION: No significant change. Danilo Contreras MD on May 08, 2017 at 6:00 Board Certified Radiologist. This report was verified electronically.
[2017-05-08] MEDS: FUROSEMIDE 20 MG TAB PO SCH ×2 (08:14→17:10)
[2017-05-08] MEDS: CARVEDILOL 12.5 MG TAB PO SCH ×2 (08:14→20:55)
[2017-05-08] MEDS: PANTOPRAZOLE SOD 40 MG DELAYED RELEASE TAB PO SCH (08:14)
[2017-05-08] MEDS: HEPARIN SODIUM - SQ 10,000 UNITS/ML VIAL SQ SCH ×2 (08:15→20:55)
[2017-05-08] MEDS: VITAMIN B CMPLX/VITC/FOLIC AC CAP PO SCH (08:15)
[2017-05-08] MEDS: SODIUM CHLORIDE 0.9% FLUSH 10 ML FLUSH IV FLUSH SCH ×2 (08:16→20:55)
--- NOTE | 2017-05-08 09:05 | HHI.NPPN ---
Subjective History of Present Illness 51 year old with IDDM, CKD stage 5, anemia, Sec HPTH Additional Remarks Resting comfortably. No SOB or edema. CT removed (Zhanna Eng) Review of Systems General Constitutional: Fatigue (Zhanna Eng) Respiratory Respiratory Remarks Denies SOB (Zhanna Eng) Cardiovascular Cardiac: Edema (Zhanna Eng) Gastrointestinal GI Remarks No abdominal pain (Zhanna Eng) Objective Data Data Vital Signs Date Time Temp Pulse Resp B/P (MAP) Pulse Ox O2 Delivery O2 Flow Rate FiO2 05/08/17 08:00 96.5 70 18 142/80 (100) 94 05/08/17 03:56 96.8 69 18 121/68 (85) 94 05/08/17 03:48 69 05/07/17 23:37 96.0 70 18 133/76 (95) 98 05/07/17 22:52 Room Air 05/07/17 19:00 97.1 68 18 100/59 (73) 97 05/07/17 18:03 65 05/07/17 16:47 Room Air 05/07/17 16:19 65 05/07/17 16:00 96.8 65 18 113/63 (80) 97 05/07/17 13:41 69 05/07/17 12:00 96.7 69 17 124/75 (91) 96 05/07/17 10:13 72 05/07/17 10:13 1.00 (Zhanna Eng) -: 05/06/17 0444 05/06/17 0444 Physical Exam General Appearance: Well Developed, Well Nourished (Zhanna Eng) Neck Neck Exam: Neck Supple (Zhanna Eng) Pulmonary Resp Exam: Clear Bilaterally, Decreased Bases (Zhanna Eng) Gastrointestinal/Abdomen GI Exam: Soft, Non-Tender, Bowel Sounds Present (Zhanna Eng) Extremeties Extremities Exam: Moderate Edema, Pitting Edema (Zhanna Eng) Assessment/Plan Problem List: (1) ESRD (end stage renal disease) on dialysis ICD Codes: N18.6 - End stage renal disease; Z99.2 - Dependence on renal dialysis Plan: C3-C4 normal CHAD neg PhosLo 667 mg tid with meals. Nephrocaps daily HD is MWF with permacath AVF Rt forearm by Dr. Lauren Quach thoracotomy CT removed yesterday. HD tomorrow (2) Acute renal failure ICD Codes: N17.9 - Acute kidney failure, unspecified Plan: ESRD. Dialysis through PermCath. He is positive for Hepatitis C Ab , RNA negative (3) CKD (chronic kidney disease), stage V ICD Codes: N18.5 - Chronic kidney disease, stage 5 Plan: May have reached ESRD. (4) Diabetes ICD Codes: E11.9 - Type 2 diabetes mellitus without complications Status: Chronic Plan: Complications including renal failure (5) Hypertension ICD Codes: I10 - Essential (primary) hypertension Plan: Continue to monitor progress (6) Anemia ICD Codes: D64.9 - Anemia, unspecified Plan: Continue to monitor on Procrit (Zhanna Eng) Problem List: (1) ESRD (end stage renal disease) on dialysis ICD Codes: N18.6 - End stage renal disease; Z99.2 - Dependence on renal dialysis Plan: C3-C4 normal CHAD neg PhosLo 667 mg tid with meals. Nephrocaps daily HD is MWF with permacath AVF Rt forearm by Dr. Lauren Quach thoracotomy CT removed yesterday. HD tomorrow. Patient seen and examined, agree with above. Out Patient HD need to be arranged. (2) Acute renal failure ICD Codes: N17.9 - Acute kidney failure, unspecified Plan: ESRD. Dialysis through PermCath. He is positive for Hepatitis C Ab , RNA negative (3) CKD (chronic kidney disease), stage V ICD Codes: N18.5 - Chronic kidney disease, stage 5 Plan: May have reached ESRD. (4) Diabetes ICD Codes: E11.9 - Type 2 diabetes mellitus without complications Status: Chronic Plan: Complications including renal failure (5) Hypertension ICD Codes: I10 - Essential (primary) hypertension Plan: Continue to monitor progress (6) Anemia ICD Codes: D64.9 - Anemia, unspecified Plan: Continue to monitor on Procrit (Mely Brown MD) Problem Qualifiers (1) Diabetes: (2) Hypertension: Qualified Codes: I10 - Essential (primary) hypertension Zhanna Eng May 08, 2017 09:05 Mely Brown MD May 08, 2017 22:45
[2017-05-08] MEDS: CALCIUM ACETATE 667 MG CAP PO SCH ×3 (10:03→17:09)
--- NOTE | 2017-05-08 12:41 | PD.CAR.PN ---
CVT Progress Note Subjective/Hospital Course: pt not in room 05/25, 05/26 Ct chest was ordered / will see today eval for left vats and decortication 04/29/2017 Patient initially scheduled for AV fistula right arm but patient does have an IV in his antecubital vein and in cephalic vein just above the wrist. Considering the patient's left-handed right arm was to be used for the AV fistula but now have to wait until these vessels heal up. In face of pending thoracoscopy /thoracotomy and decortication of the lung will wait till that is all done and then will deal with the AV fistula This will allow for patient also to heal the right arm and make the vein usable. 05/01/2017 Right arm is now ready for AV fistula Patient is fairly good veins and I may use antecubital vein either a basilic or cephalic vein to make a loop or perhaps do an upper arm fistula depending on situation on the table In addition I have discussed the care with Dr. Valero, and patient is scheduled to undergo tomorrow the thoracotomy and evacuation of left empyema with decortication of the lung In order to save patient want surgery will proceed with both at once so I will take over the entire case and do both parts. This plan will remain, unless there is significant amount of bleeding in the chest at the time of decortication at which point the AV fistula would of course be postponed. Discussed today at patient at length 05/03/2017 Patient doing well at this point Successfully extubated Bilateral good breath sounds Small air leak on the left side which is consistent with a decortication and several surface lung leaks Lung fully expanded Chest tube drainage decreased All things equal patient can be transferred to floor will be started on regular diet Start on heparin sq for prophylaxis Patient doing great at this time but needs to deep breathe and cough 05/04/2017 Patient doing very well status post left thoracotomy and decortication Chest tube drainage decreased to about 150 cc over 24 hours and patient is a tiny air leak Good pulmonary expansion and patient taking good breaths We will keep both chest tubes in for another few days until the air leak resolves and then pull them out one by one Patient can transfer to floor at this time For right AV fistula tomorrow Appreciate help from nephrology and internal medicine 05/06/2018 Status post right AV fistula to the forearm Patient has excellent bruit and thrill in the cephalic vein and this fistula should develop very nicely in the next month or 2 Left chest basal tube removed yesterday Lung fully expanded with tiny chest tube air leak so we will leave everything as is for the time being likely will remove chest tube on Tuesday or Tuesday for by that time probably air leak will resolve After decortication and takes a while for the lungs to heal over 05/07/2017 Chest tube in the left chest has no air leak and minimal drainage Lung appears to be sealed There will be an occasional patient that despite the chest tube removal without a leak, will develop a small pneumothorax and if enlarging, at that point we will place a pigtail catheter Incision clean and dry As far as the AV fistula right arm is concerned this is nice and patent with excellent thrill and bruit in cephalic vein Unfortunately somebody placed a blood group armband very tightly over the arm just on the fistula site and if I had not found it now, it would have occluded the fistula and obliterated the vein Care has to be taken not to place anything on the arm after creation of an AV fistula especially in the early postop period I have discussed this with the charge nurse 05/08/2017 Fistula with excellent bruit Chest bilateral breath sounds. Last chest tube removed no pneumothorax Patient can be discharged from my point with follow-up with me in about a week to 10 days in the office Objective: Vital Signs Date Time Temp Pulse Resp B/P (MAP) Pulse Ox O2 Delivery O2 Flow Rate FiO2 05/08/17 12:10 96.3 68 18 124/75 (91) 97 05/08/17 08:00 96.5 70 18 142/80 (100) 94 05/08/17 03:56 96.8 69 18 121/68 (85) 94 05/08/17 03:48 69 05/07/17 23:37 96.0 70 18 133/76 (95) 98 05/07/17 22:52 Room Air 05/07/17 19:00 97.1 68 18 100/59 (73) 97 05/07/17 18:03 65 05/07/17 16:47 Room Air 05/07/17 16:19 65 05/07/17 16:00 96.8 65 18 113/63 (80) 97 05/07/17 13:41 69 Result Diagram: 05/06/17 0444 05/06/17 0444 (1) Hypertensive heart and chronic kidney disease with heart failure Plan: defer to nephrology. LVEF 40-45% with LVH (2) CKD (chronic kidney disease), stage V (3) Loculated pleural effusion Plan: consult Dr. Ben Valero (4) Iron deficiency anemia Plan: Cardiology cleared for EGDE/ colonoscopy Yvon Snyder MD May 08, 2017 12:41
--- NOTE | 2017-05-08 14:37 | HHI.PR ---
Subjective Remarks Follow up pleural effusion, renal failure, CHF. Patient has no complaints at this time. Denies chest pain, dyspnea. Objective Vitals Vital Signs Date Time Temp Pulse Resp B/P (MAP) Pulse Ox O2 Delivery O2 Flow Rate FiO2 05/08/17 12:10 96.3 68 18 124/75 (91) 97 05/08/17 08:00 96.5 70 18 142/80 (100) 94 05/08/17 03:56 96.8 69 18 121/68 (85) 94 05/08/17 03:48 69 05/07/17 23:37 96.0 70 18 133/76 (95) 98 05/07/17 22:52 Room Air 05/07/17 19:00 97.1 68 18 100/59 (73) 97 05/07/17 18:03 65 05/07/17 16:47 Room Air 05/07/17 16:19 65 05/07/17 16:00 96.8 65 18 113/63 (80) 97 I/O 05/07/17 05/07/17 05/07/17 05/08/17 05/08/17 05/08/17 07:00 15:00 23:00 07:00 15:00 23:00 Intake Total 410 ml 900 ml 580 ml 100 ml Output Total 20 ml Balance 390 ml 900 ml 580 ml 100 ml Intake Oral 360 ml 900 ml 480 ml IV Total 50 ml 100 ml 100 ml Chest Tube Drainage Total 20 ml # Voids 0 1 2 # Bowel Movements 0 0 1 Result Diagram: 05/06/174 05/06/17 0444 Imaging Last Impressions Chest X-Ray 05/08/17 0600 Signed Impressions: Service Date/Time: Monday, May 08, 2017 03:43 - CONCLUSION: No significant change. Danilo Contreras MD Upper Extremity Ultrasound 04/28/17 0000 Signed Impressions: Service Date/Time: April 17:55 - CONCLUSION: No evidence of upper extremity DVT. Leif Espinosa MD Catheter Placement X-Ray 04/28/17 0000 Signed Impressions: Service Date/Time: April 09:21 - CONCLUSION: Uncomplicated PermaCath placement as above. Mark Maravilla MD Chest CT 04/27/17 0000 Signed Impressions: Service Date/Time: Thursday, April 27, 2017 15:55 - CONCLUSION: 1. Residual large left pleural effusion with associated parietal pleural thickening. There is compressive atelectasis within the left lung and possible consolidation in the left upper lobe. 2. Small simple appearing right pleural effusion with mild compressive atelectasis in the right lower lobe. 3. There is a small volume of free fluid in the upper abdomen. Danilo Carney MD Thoracentesis Ultrasound 04/26/17 0000 Signed Impressions: Service Date/Time: Wednesday, April 26, 2017 13:24 - CONCLUSION: Uncomplicated ultrasound guided thoracentesis. Robert Estrada MD Renal Ultrasound 04/26/17 0000 Signed Impressions: Service Date/Time: Wednesday, April 26, 2017 07:46 - CONCLUSION: Echogenic kidneys bilaterally compatible with medical renal disease. Trace ascites Mark Maravilla MD Objective Remarks General: No acute distress. Heart: Regular rate and rhythm. No murmur. Lungs: Clear to auscultation bilaterally. No wheezes, rales, or rhonchi. Breathing is nonlabored. Abdomen: Soft, nontender, nondistended. Extremities: No lower extremity edema. Psych: Alert, answers questions appropriately. Procedures Ultrasound-guided thoracentesis 04/26/2017. Echocardiogram 04/26/2017 Mildly dilated left ventricle. The left ventricular systolic function is moderately reduced with an estimated ejection fraction in the range of 40-45%. Mild LVH. The left atrial size is ubflouyz-ki-ukirifas dilated. The right atrial size is [id number]-abrzuqnulp dilated. Mild mitral valve regurgitation. Aortic valve sclerosis is present. There is mild to moderate tricuspid valve regurgitation. The estimated pulmonary arterial pressure is 64 mmHg. Mild pulmonary valve regurgitation. A right sided pleural effusion is present. A large left sided pleural effusion is noted. 05/02/17 anterolateral thoracotomy, decortication of the left lung, chest tube placement, evacuation of empyema 05/05/17 right forearm AV fistula Urinary Catheter: No Vascular Central Line Catheter: No A/P Problem List: (1) Bilateral pleural effusion ICD Code: J90 - Pleural effusion, not elsewhere classified (2) OSMANY (acute kidney injury) ICD Code: N17.9 - Acute kidney failure, unspecified (3) Diabetes mellitus, type 2 ICD Code: E11.9 - Type 2 diabetes mellitus without complications (4) CKD (chronic kidney disease), stage V ICD Code: N18.5 - Chronic kidney disease, stage 5 (5) Hypertension ICD Code: I10 - Essential (primary) hypertension Assessment and Plan 1. Bilateral pleural effusion: Likely secondary to CHF, chronic kidney disease. Status post thoracentesis. Status post thoracotomy with decortication and chest tube placement. The patient was extubated 05/03/17. Continue supplemental oxygen. Continue incentive spirometry. Both chest tubes removed. Repeat CXR unchanged. Cleared for discharge by Dr. Snyder. 2. Acute systolic congestive heart failure: Continue Lasix. Continue carvedilol. 3. Hypertension: Continue Coreg, hydralazine. Blood pressure is well controlled. 4. Diabetes mellitus: Monitor Accu-Cheks and cover with sliding scale insulin. 5. ESRD: Continue dialysis per nephrology recommendations. Right arm AV fistula done 05/05/17. 6. Anemia: Possibly secondary to chronic kidney disease. Monitor H&H. 7. DVT prophylaxis: Heparin. 8. Episode of sedation following surgery: Likely due to anesthesia, Fentanyl patch. Responded to Narcan. Fentanyl patch removed. No further episodes. Discussed at bedside with Dr. Brown, who is providing weekend coverage for nephrology. Discussed with case management. Discharge Planning When outpatient dialysis has been arranged. Problem Qualifiers (1) Hypertension: Qualified Codes: I10 - Essential (primary) hypertension Jorge Mendieta MD May 08, 2017 14:37
[2017-05-09] VITALS (8 sets, daily range): BP systolic 109–163; BP diastolic 62–82; PULSE 67–78; RESP 17–18; TEMP 96.4–97.7; O2SAT 93–98
[2017-05-09] MEDS: INSULIN ASPART SUPPLEMENTAL SCALE SQ SCH ×4 (05:00→23:00)
[2017-05-09] MEDS: hydrALAZINE HCL 25 MG TAB PO SCH ×3 (06:00→20:14)
[2017-05-09] MEDS: PANTOPRAZOLE SOD 40 MG DELAYED RELEASE TAB PO SCH (07:48)
[2017-05-09] MEDS: CALCIUM ACETATE 667 MG CAP PO SCH ×3 (07:49→17:57)
[2017-05-09] MEDS: HEPARIN SODIUM - SQ 10,000 UNITS/ML VIAL SQ SCH ×2 (07:49→20:15)
[2017-05-09] MEDS: FUROSEMIDE 20 MG TAB PO SCH ×2 (07:49→17:57)
[2017-05-09] MEDS: CARVEDILOL 12.5 MG TAB PO SCH ×2 (07:50→20:14)
[2017-05-09] MEDS: VITAMIN B CMPLX/VITC/FOLIC AC CAP PO SCH (07:50)
[2017-05-09] MEDS: SODIUM CHLORIDE 0.9% FLUSH 10 ML FLUSH IV FLUSH SCH ×2 (07:52→20:15)
[2017-05-09] MEDS ORDERED: NITR0.4S SL (10:46)
[2017-05-09] MEDS ORDERED: CALC667C PO (10:46)
[2017-05-09] MEDS ORDERED: FURO20TA PO (10:46)
[2017-05-09] MEDS ORDERED: HYDR-3799 PO (10:46)
--- NOTE | 2017-05-09 10:47 | HHI.DCPOC ---
Discharge Care Plan Diagnosis: (1) ESRD (end stage renal disease) on dialysis (2) Bilateral pleural effusion (3) Diabetes mellitus, type 2 (4) Iron deficiency anemia (5) Hypertension Goals to Promote Your Health * To prevent worsening of your condition and complications * To maintain your health at the optimal level Directions to Meet Your Goals Take your medications as prescribed Follow your dietary instruction Follow activity as directed Keep your appointments as scheduled Take your immunizations and boosters as scheduled If your symptoms worsen call your PCP, if no PCP go to Urgent Care Center or Emergency Room Smoking is Dangerous to Your Health. Avoid second hand smoke Call the 24-hour hour crisis hotline for domestic abuse at Jorge Mendieta MD May 09, 2017 10:47
--- NOTE | 2017-05-09 10:50 | HHI.PR ---
Subjective Remarks Follow up ESRD. Patient has no complaints at this time. Denies chest pain, dyspnea, nausea, vomiting. Ready to go home. Objective Vitals Vital Signs Date Time Temp Pulse Resp B/P (MAP) Pulse Ox O2 Delivery O2 Flow Rate FiO2 05/09/17 08:00 97.5 67 18 149/71 (97) 95 05/09/17 04:19 69 05/09/17 03:20 97.3 67 17 109/62 (78) 96 05/09/17 01:30 97.7 68 17 124/67 (86) 97 05/08/17 23:44 68 05/08/17 23:02 Room Air 05/08/17 21:00 97.0 68 17 135/75 (95) 98 05/08/17 20:04 65 05/08/17 16:00 96.1 69 17 126/67 (86) 96 05/08/17 12:10 96.3 68 18 124/75 (91) 97 I/O 05/08/17 05/08/17 05/08/17 05/09/17 05/09/17 05/09/17 07:00 15:00 23:00 07:00 15:00 23:00 Intake Total 100 ml 850 ml 720 ml Balance 100 ml 850 ml 720 ml Intake Oral 850 ml 720 ml IV Total 100 ml # Voids 2 1 # Bowel Movements 1 2 0 Result Diagram: 05/06/174 05/06/17 0444 Imaging Last Impressions Chest X-Ray 05/08/17 0600 Signed Impressions: Service Date/Time: Monday, May 08, 2017 03:43 - CONCLUSION: No significant change. Danilo Contreras MD Upper Extremity Ultrasound 04/28/17 0000 Signed Impressions: Service Date/Time: April 17:55 - CONCLUSION: No evidence of upper extremity DVT. Leif Espinosa MD Catheter Placement X-Ray 04/28/17 0000 Signed Impressions: Service Date/Time: April 09:21 - CONCLUSION: Uncomplicated PermaCath placement as above. Mark Maravilla MD Chest CT 04/27/17 0000 Signed Impressions: Service Date/Time: Thursday, April 27, 2017 15:55 - CONCLUSION: 1. Residual large left pleural effusion with associated parietal pleural thickening. There is compressive atelectasis within the left lung and possible consolidation in the left upper lobe. 2. Small simple appearing right pleural effusion with mild compressive atelectasis in the right lower lobe. 3. There is a small volume of free fluid in the upper abdomen. Danilo Carney MD Thoracentesis Ultrasound 04/26/17 0000 Signed Impressions: Service Date/Time: Wednesday, April 26, 2017 13:24 - CONCLUSION: Uncomplicated ultrasound guided thoracentesis. Robert Estrada MD Renal Ultrasound 04/26/17 0000 Signed Impressions: Service Date/Time: Wednesday, April 26, 2017 07:46 - CONCLUSION: Echogenic kidneys bilaterally compatible with medical renal disease. Trace ascites Mark Maravilla MD Objective Remarks General: No acute distress. Heart: Regular rate and rhythm. No murmur. Lungs: Clear to auscultation bilaterally. No wheezes, rales, or rhonchi. Breathing is nonlabored. Abdomen: Soft, nontender, nondistended. Extremities: No lower extremity edema. Psych: Alert, oriented, answers questions appropriately. Procedures Ultrasound-guided thoracentesis 04/26/2017. Echocardiogram 04/26/2017 Mildly dilated left ventricle. The left ventricular systolic function is moderately reduced with an estimated ejection fraction in the range of 40-45%. Mild LVH. The left atrial size is oeklkoka-al-vllsifvw dilated. The right atrial size is qotr-dk-egxtlptgkh dilated. Mild mitral valve regurgitation. Aortic valve sclerosis is present. There is mild to moderate tricuspid valve regurgitation. The estimated pulmonary arterial pressure is 64 mmHg. Mild pulmonary valve regurgitation. A right sided pleural effusion is present. A large left sided pleural effusion is noted. 05/02/17 anterolateral thoracotomy, decortication of the left lung, chest tube placement, evacuation of empyema 05/05/17 right forearm AV fistula Urinary Catheter: No Vascular Central Line Catheter: No A/P Problem List: (1) Bilateral pleural effusion ICD Code: J90 - Pleural effusion, not elsewhere classified (2) OSMANY (acute kidney injury) ICD Code: N17.9 - Acute kidney failure, unspecified (3) Diabetes mellitus, type 2 ICD Code: E11.9 - Type 2 diabetes mellitus without complications (4) CKD (chronic kidney disease), stage V ICD Code: N18.5 - Chronic kidney disease, stage 5 (5) Hypertension ICD Code: I10 - Essential (primary) hypertension Assessment and Plan 05/09/17: No change. Cleared for discharge by nephrology, vascular surgery. Awaiting arrangement of outpatient dialysis. 1. Bilateral pleural effusion: Likely secondary to CHF, chronic kidney disease. Status post thoracentesis. Status post thoracotomy with decortication and chest tube placement. The patient was extubated 05/03/17. Continue supplemental oxygen. Continue incentive spirometry. Both chest tubes removed. Repeat CXR unchanged. Cleared for discharge by Dr. Snyder. 2. Acute systolic congestive heart failure: Continue Lasix. Continue carvedilol. 3. Hypertension: Continue Coreg, hydralazine. Blood pressure is well controlled. 4. Diabetes mellitus: Monitor Accu-Cheks and cover with sliding scale insulin. Follow up with PCP. 5. ESRD: Continue dialysis per nephrology recommendations. Right arm AV fistula done 05/05/17. 6. Anemia: Possibly secondary to chronic kidney disease. Monitor H&H. 7. DVT prophylaxis: Heparin. 8. Episode of sedation following surgery: Likely due to anesthesia, Fentanyl patch. Responded to Narcan. Fentanyl patch removed. No further episodes. Discussed with case management. Discharge Planning Discharge home when outpatient dialysis has been arranged. Problem Qualifiers (1) Hypertension: Qualified Codes: I10 - Essential (primary) hypertension Jorge Mendieta MD May 09, 2017 10:50
--- NOTE | 2017-05-09 11:47 | PD.CAR.PN ---
CVT Progress Note Subjective/Hospital Course: pt not in room 05/25, 05/26 Ct chest was ordered / will see today eval for left vats and decortication 04/29/2017 Patient initially scheduled for AV fistula right arm but patient does have an IV in his antecubital vein and in cephalic vein just above the wrist. Considering the patient's left-handed right arm was to be used for the AV fistula but now have to wait until these vessels heal up. In face of pending thoracoscopy /thoracotomy and decortication of the lung will wait till that is all done and then will deal with the AV fistula This will allow for patient also to heal the right arm and make the vein usable. 05/01/2017 Right arm is now ready for AV fistula Patient is fairly good veins and I may use antecubital vein either a basilic or cephalic vein to make a loop or perhaps do an upper arm fistula depending on situation on the table In addition I have discussed the care with Dr. Valero, and patient is scheduled to undergo tomorrow the thoracotomy and evacuation of left empyema with decortication of the lung In order to save patient want surgery will proceed with both at once so I will take over the entire case and do both parts. This plan will remain, unless there is significant amount of bleeding in the chest at the time of decortication at which point the AV fistula would of course be postponed. Discussed today at patient at length 05/03/2017 Patient doing well at this point Successfully extubated Bilateral good breath sounds Small air leak on the left side which is consistent with a decortication and several surface lung leaks Lung fully expanded Chest tube drainage decreased All things equal patient can be transferred to floor will be started on regular diet Start on heparin sq for prophylaxis Patient doing great at this time but needs to deep breathe and cough 05/04/2017 Patient doing very well status post left thoracotomy and decortication Chest tube drainage decreased to about 150 cc over 24 hours and patient is a tiny air leak Good pulmonary expansion and patient taking good breaths We will keep both chest tubes in for another few days until the air leak resolves and then pull them out one by one Patient can transfer to floor at this time For right AV fistula tomorrow Appreciate help from nephrology and internal medicine 05/06/2018 Status post right AV fistula to the forearm Patient has excellent bruit and thrill in the cephalic vein and this fistula should develop very nicely in the next month or 2 Left chest basal tube removed yesterday Lung fully expanded with tiny chest tube air leak so we will leave everything as is for the time being likely will remove chest tube on Tuesday or Tuesday for by that time probably air leak will resolve After decortication and takes a while for the lungs to heal over 05/07/2017 Chest tube in the left chest has no air leak and minimal drainage Lung appears to be sealed There will be an occasional patient that despite the chest tube removal without a leak, will develop a small pneumothorax and if enlarging, at that point we will place a pigtail catheter Incision clean and dry As far as the AV fistula right arm is concerned this is nice and patent with excellent thrill and bruit in cephalic vein Unfortunately somebody placed a blood group armband very tightly over the arm just on the fistula site and if I had not found it now, it would have occluded the fistula and obliterated the vein Care has to be taken not to place anything on the arm after creation of an AV fistula especially in the early postop period I have discussed this with the charge nurse 05/08/2017 Fistula with excellent bruit Chest bilateral breath sounds. Last chest tube removed no pneumothorax Patient can be discharged from my point with follow-up with me in about a week to 10 days in the office 05/09/2017 Incision clean and dry Patient to see me in the office in about 7-10 days for staple removal AV fistula nice and patent and will probably mature well If maturing is delayed in any way we will do a venogram and mapping to see if there are any larger tributaries to the vein that will need ligating before we can use the main body of the vein for dialysis Objective: Vital Signs Date Time Temp Pulse Resp B/P (MAP) Pulse Ox O2 Delivery O2 Flow Rate FiO2 05/09/17 08:00 97.5 67 18 149/71 (97) 95 05/09/17 04:19 69 05/09/17 03:20 97.3 67 17 109/62 (78) 96 05/09/17 01:30 97.7 68 17 124/67 (86) 97 05/08/17 23:44 68 05/08/17 23:02 Room Air 05/08/17 21:00 97.0 68 17 135/75 (95) 98 05/08/17 20:04 65 05/08/17 16:00 96.1 69 17 126/67 (86) 96 05/08/17 12:10 96.3 68 18 124/75 (91) 97 Result Diagram: 05/06/174 05/06/17443 (1) Hypertensive heart and chronic kidney disease with heart failure Plan: defer to nephrology. LVEF 40-45% with LVH (2) CKD (chronic kidney disease), stage V (3) Loculated pleural effusion Plan: consult Dr. Ben Valero (4) Iron deficiency anemia Plan: Cardiology cleared for EGDE/ colonoscopy Yvon Snyder MD May 09, 2017 11:47
[2017-05-09] MEDS: GENTAMICIN SULFATE 20 MG/2 ML VIAL OTHER PRN (14:00)
[2017-05-09] MEDS: HEPARIN SODIUM - IV 10,000 UNITS/10 ML VIAL PRN (14:00)
[2017-05-09] MEDS: EPOETIN ALFA 10,000 UNITS/ML VIAL IV PUSH PRN (14:00)
--- NOTE | 2017-05-09 15:06 | HHI.NPPN ---
Subjective History of Present Illness 51 year old with IDDM, CKD stage 5, anemia, [facility] Additional Remarks Review of Systems General Constitutional: Fatigue Respiratory Respiratory Remarks Denies SOB Cardiovascular Cardiac: Edema Gastrointestinal GI Remarks No abdominal pain Objective Data Data 05/09/17 05/10/17 19:00 07:00 Intake Total 720 ml Balance 720 ml Intake Oral 720 ml # Voids 1 # Bowel Movements 0 Vital Signs Date Time Temp Pulse Resp B/P (MAP) Pulse Ox O2 Delivery O2 Flow Rate FiO2 05/09/17 12:00 96.4 73 17 155/79 (104) 93 05/09/17 08:00 97.5 67 18 149/71 (97) 95 05/09/17 04:19 69 05/09/17 03:20 97.3 67 17 109/62 (78) 96 05/09/17 01:30 97.7 68 17 124/67 (86) 97 05/08/17 23:44 68 05/08/17 23:02 Room Air 05/08/17 21:00 97.0 68 17 135/75 (95) 98 05/08/17 20:04 65 05/08/17 16:00 96.1 69 17 126/67 (86) 96 -: 05/06/17 0444 05/06/17 0444 Physical Exam General Appearance: Well Developed, Well Nourished Neck Neck Exam: Neck Supple Pulmonary Resp Exam: Clear Bilaterally, Decreased Bases Gastrointestinal/Abdomen GI Exam: Soft, Non-Tender, Bowel Sounds Present Extremeties Extremities Exam: Moderate Edema, Pitting Edema Assessment/Plan Problem List: (1) ESRD (end stage renal disease) on dialysis ICD Codes: N18.6 - End stage renal disease; Z99.2 - Dependence on renal dialysis Plan: C3-C4 normal CHAD neg PhosLo 667 mg tid with meals. Nephrocaps daily HD is MWF with permacath AVF Rt forearm by Dr. Lauren Quach thoracotomy CT removed HD seen at dialysis UF 2 - 2.5 L 2 K bath tolerating it well out pt HD in [place] requested Patient seen and examined, agree with above. Out Patient HD need to be arranged. (2) Acute renal failure ICD Codes: N17.9 - Acute kidney failure, unspecified Plan: ESRD. Dialysis through PermCath. He is positive for Hepatitis C Ab , RNA negative (3) CKD (chronic kidney disease), stage V ICD Codes: N18.5 - Chronic kidney disease, stage 5 Plan: May have reached ESRD. (4) Diabetes ICD Codes: E11.9 - Type 2 diabetes mellitus without complications Status: Chronic Plan: Complications including renal failure (5) Hypertension ICD Codes: I10 - Essential (primary) hypertension Plan: Continue to monitor progress (6) Anemia ICD Codes: D64.9 - Anemia, unspecified Plan: Continue to monitor on Procrit Problem Qualifiers (1) Diabetes: (2) Hypertension: Qualified Codes: I10 - Essential (primary) hypertension Jeremy Light MD May 09, 2017 15:06
--- NOTE | 2017-05-09 15:40 | HHI.DS ---
Discharge Summary Admission Date Apr 25, 2017 at 19:05 Discharge Date: May 09, 2017 Admitting Diagnosis Congestive heart failure, pleural effusion, renal failure (1) Bilateral pleural effusion ICD Code: J90 - Pleural effusion, not elsewhere classified (2) Diabetes mellitus, type 2 ICD Code: E11.9 - Type 2 diabetes mellitus without complications (3) Hypertension ICD Code: I10 - Essential (primary) hypertension (4) ESRD (end stage renal disease) on dialysis ICD Code: N18.6 - End stage renal disease; Z99.2 - Dependence on renal dialysis Procedures Ultrasound-guided thoracentesis 04/26/2017. Echocardiogram 04/26/2017 Mildly dilated left ventricle. The left ventricular systolic function is moderately reduced with an estimated ejection fraction in the range of 40-45%. Mild LVH. The left atrial size is zkrknaqn-pe-ktplmfla dilated. The right atrial size is gnzx-na-cqozfkdqdx dilated. Mild mitral valve regurgitation. Aortic valve sclerosis is present. There is mild to moderate tricuspid valve regurgitation. The estimated pulmonary arterial pressure is 64 mmHg. Mild pulmonary valve regurgitation. A right sided pleural effusion is present. A large left sided pleural effusion is noted. 05/02/17 anterolateral thoracotomy, decortication of the left lung, chest tube placement, evacuation of empyema 05/05/17 right forearm AV fistula Brief History - From Admission History from patient, family members at the bedside, review of medical records from [facility]. Patient reported that his primary care doctor called him at home and told him to go to ER because his BNP was greater than 35,000. He reports he has been short of breath. However it was only when he walks around. Not addressed. He states he cannot sleep flat. He usually has to sleep on his left side. Denies any fever. Reports that this dyspnea on exertion has been happening for the past 4-5 months. He reports he has been coughing occasionally. But did not really produce any sputum except for once or twice. He does report of chronic peripheral edema bilaterally in the lower extremities. He states in fact this edema is improving in the past one week or so. His doctor has recently changed his diuretics from Lasix to torsemide. He denies any associated chest pains with this shortness of breath. He does however report of night sweats for the past few months. Denies any weight loss. Denies any loss of appetite. On further review of system, patient reports of diarrhea on and off for the past 4-5 months. He states that usually he would have diarrhea at least 3-4 times a day. At least out of the 7 days in a week, he would have diarrhea about 4 days. He denies any black color stools or red-colored stools. Denies being on antibiotics or hospitalization. Denies ever having any EGD or colonoscopy prior. CBC/BMP: 05/06/17 0444 05/06/17 0444 Imaging Last Impressions Chest X-Ray 05/08/17 0600 Signed Impressions: Service Date/Time: Monday, May 08, 2017 03:43 - CONCLUSION: No significant change. Danilo Contreras MD Upper Extremity Ultrasound 04/28/17 0000 Signed Impressions: Service Date/Time: April 17:55 - CONCLUSION: No evidence of upper extremity DVT. Leif Espinosa MD Catheter Placement X-Ray 04/28/17 0000 Signed Impressions: Service Date/Time: April 09:21 - CONCLUSION: Uncomplicated PermaCath placement as above. Mark Maravilla MD Chest CT 04/27/17 0000 Signed Impressions: Service Date/Time: Thursday, April 27, 2017 15:55 - CONCLUSION: 1. Residual large left pleural effusion with associated parietal pleural thickening. There is compressive atelectasis within the left lung and possible consolidation in the left upper lobe. 2. Small simple appearing right pleural effusion with mild compressive atelectasis in the right lower lobe. 3. There is a small volume of free fluid in the upper abdomen. Danilo Carney MD Thoracentesis Ultrasound 04/26/17 0000 Signed Impressions: Service Date/Time: Wednesday, April 26, 2017 13:24 - CONCLUSION: Uncomplicated ultrasound guided thoracentesis. Robert Estrada MD Renal Ultrasound 04/26/17 0000 Signed Impressions: Service Date/Time: Wednesday, April 26, 2017 07:46 - CONCLUSION: Echogenic kidneys bilaterally compatible with medical renal disease. Trace ascites Mark Maravilla MD PE at Discharge General: No acute distress. Heart: Regular rate and rhythm. No murmur. Lungs: Clear to auscultation bilaterally. No wheezes, rales, or rhonchi. Breathing is nonlabored. Abdomen: Soft, nontender, nondistended. Extremities: No lower extremity edema. Psych: Alert, oriented, answers questions appropriately. Hospital Course The patient was admitted for management of acute on chronic congestive heart failure and pleural effusion. He was continued on diuretics. Cardiology and nephrology were consulted. Thoracentesis was done. Pleural fluid was consistent with transudate. Gastroenterology was consulted for evaluation of diarrhea, anemia, jaundice. EGD and colonoscopy were done. Cardiovascular surgery was consulted for permanent dialysis access. Pleural effusions were persistent despite thoracentesis and diuresis. Thoracotomy and decortication of the left lung were done on 05/02/17. Chest tubes were placed. These were managed by thoracic surgery. As the patient improved clinically, the chest tubes were removed. Patient's respiratory status remained stable following removal of the chest tubes. AV fistula was done by vascular surgery. The patient was cleared for discharge by nephrology and vascular surgery. Case management was consulted to arrange outpatient dialysis prior to discharge. Pt Condition on Discharge: Stable Discharge Disposition: Discharge Home Discharge Time: > 30 minutes Discharge Instructions DIET: Follow Instructions for: Renal Failure Diet Activities you can perform: Regular-No Restrictions Follow up Referrals: Nephrology - 1 Week PCP Follow-up - 1 Week Vascular Surgery - 1 Week with Yvon Snyder MD New Medications: Calcium Acetate (Phosphate Bin (Calcium Acetate) 667 Mg Cap 667 MG PO TID for Nutritional Supplement, #90 CAP 0 Refills Furosemide (Furosemide) 20 Mg Tab 20 MG PO BID@,18 for Diuretic, #60 TAB 0 Refills Hydralazine HCl (Hydralazine HCl) 25 Mg Tablet 25 MG PO Q8HR for Blood Pressure Management, #90 TAB 0 Refills Nitroglycerin SL (Nitrostat SL) 0.4 Mg Subl 0.4 MG SL UNSCH PRN for CHEST PAIN, #100 TAB 0 Refills Jorge Mendieta MD May 09, 2017 15:40
[2017-05-10 00:19] VITALS: PULSE 71
[2017-05-10 00:54] VITALS: BP 140/72; PULSE 71; RESP 17; TEMP 97.5; O2SAT 99
[2017-05-10 03:45] VITALS: BP 143/76; PULSE 76; RESP 17; TEMP 96.9; O2SAT 95
[2017-05-10] MEDS: INSULIN ASPART SUPPLEMENTAL SCALE SQ SCH ×2 (05:00→13:04)
[2017-05-10] MEDS: hydrALAZINE HCL 25 MG TAB PO SCH ×2 (05:42→13:03)
[2017-05-10 08:00] VITALS: BP 142/77; PULSE 72; RESP 17; TEMP 97.6; O2SAT 97
[2017-05-10] MEDS: VITAMIN B CMPLX/VITC/FOLIC AC CAP PO SCH (09:00)
[2017-05-10] MEDS: CARVEDILOL 12.5 MG TAB PO SCH (09:53)
[2017-05-10] MEDS: PANTOPRAZOLE SOD 40 MG DELAYED RELEASE TAB PO SCH (09:53)
[2017-05-10] MEDS: CALCIUM ACETATE 667 MG CAP PO SCH ×2 (09:53→13:03)
[2017-05-10] MEDS: FUROSEMIDE 20 MG TAB PO SCH (09:53)
[2017-05-10] MEDS: HEPARIN SODIUM - SQ 10,000 UNITS/ML VIAL SQ SCH (09:54)
[2017-05-10] MEDS: SODIUM CHLORIDE 0.9% FLUSH 10 ML FLUSH IV FLUSH SCH (09:58)
--- NOTE | 2017-05-10 13:11 | HHI.PR ---
Subjective Remarks Follow-up renal failure, CHF. The patient has no complaints at this time. He wants to go home. Awaiting for outpatient dialysis to be arranged. No pain currently. Denies shortness of breath. Objective Vitals Vital Signs Date Time Temp Pulse Resp B/P (MAP) Pulse Ox O2 Delivery O2 Flow Rate FiO2 05/10/17 08:00 97.6 72 17 142/77 (98) 97 05/10/17 08:00 72 05/10/17 08:00 97 Room Air 05/10/17 03:45 96.9 76 17 143/76 (98) 95 05/10/17 00:54 97.5 71 17 140/72 (94) 99 05/10/17 00:19 71 05/09/17 21:30 Room Air 05/09/17 21:25 97.0 78 17 163/82 (109) 98 05/09/17 19:55 78 05/09/17 16:00 96.8 72 18 117/66 (83) 95 I/O 05/09/17 05/09/17 05/09/17 05/10/17 05/10/17 05/10/17 07:00 15:00 23:00 07:00 15:00 23:00 Intake Total 720 ml 480 ml 480 ml Output Total 2500 ml Balance 720 ml -2020 ml 480 ml Intake Oral 720 ml 480 ml 480 ml Hemodialysis 2500 ml # Voids 2 2 2 # Bowel Movements 1 2 0 Result Diagram: 05/06/174 05/06/17 0444 Imaging Last Impressions Chest X-Ray 05/08/17 0600 Signed Impressions: Service Date/Time: Monday, May 08, 2017 03:43 - CONCLUSION: No significant change. Danilo Contreras MD Upper Extremity Ultrasound 04/28/17 0000 Signed Impressions: Service Date/Time: April 17:55 - CONCLUSION: No evidence of upper extremity DVT. Leif Espinosa MD Catheter Placement X-Ray 04/28/17 0000 Signed Impressions: Service Date/Time: April 09:21 - CONCLUSION: Uncomplicated PermaCath placement as above. Mark Maravilla MD Chest CT 04/27/17 0000 Signed Impressions: Service Date/Time: Thursday, April 27, 2017 15:55 - CONCLUSION: 1. Residual large left pleural effusion with associated parietal pleural thickening. There is compressive atelectasis within the left lung and possible consolidation in the left upper lobe. 2. Small simple appearing right pleural effusion with mild compressive atelectasis in the right lower lobe. 3. There is a small volume of free fluid in the upper abdomen. Danilo Carney MD Thoracentesis Ultrasound 04/26/17 0000 Signed Impressions: Service Date/Time: Wednesday, April 26, 2017 13:24 - CONCLUSION: Uncomplicated ultrasound guided thoracentesis. Robert Estrada MD Renal Ultrasound 04/26/17 0000 Signed Impressions: Service Date/Time: Wednesday, April 26, 2017 07:46 - CONCLUSION: Echogenic kidneys bilaterally compatible with medical renal disease. Trace ascites Mark Maravilla MD Objective Remarks General: No acute distress. Heart: Regular rate and rhythm. No murmur. Lungs: Breath sounds slightly decreased in both bases. No wheezes, rales, or rhonchi. Breathing is nonlabored. Abdomen: Soft, nontender, nondistended. Extremities: No lower extremity edema. Psych: Alert, oriented, answers questions appropriately. Procedures Ultrasound-guided thoracentesis 04/26/2017. Echocardiogram 04/26/2017 Mildly dilated left ventricle. The left ventricular systolic function is moderately reduced with an estimated ejection fraction in the range of 40-45%. Mild LVH. The left atrial size is [id number] dilated. The right atrial size is [id number] dilated. Mild mitral valve regurgitation. Aortic valve sclerosis is present. There is mild to moderate tricuspid valve regurgitation. The estimated pulmonary arterial pressure is 64 mmHg. Mild pulmonary valve regurgitation. A right sided pleural effusion is present. A large left sided pleural effusion is noted. 05/02/17 anterolateral thoracotomy, decortication of the left lung, chest tube placement, evacuation of empyema 05/05/17 right forearm AV fistula Urinary Catheter: No Vascular Central Line Catheter: No A/P Problem List: (1) Bilateral pleural effusion ICD Code: J90 - Pleural effusion, not elsewhere classified (2) Diabetes mellitus, type 2 ICD Code: E11.9 - Type 2 diabetes mellitus without complications (3) Hypertension ICD Code: I10 - Essential (primary) hypertension (4) ESRD (end stage renal disease) on dialysis ICD Code: N18.6 - End stage renal disease; Z99.2 - Dependence on renal dialysis Assessment and Plan 05/10/17: No change. Cleared for discharge by nephrology, vascular surgery. Awaiting arrangement of outpatient dialysis. 1. Bilateral pleural effusion: Likely secondary to CHF, chronic kidney disease. Status post thoracentesis. Status post thoracotomy with decortication and chest tube placement. The patient was extubated 05/03/17. Continue supplemental oxygen. Continue incentive spirometry. Both chest tubes removed. Repeat CXR unchanged. Cleared for discharge by Dr. Snyder. 2. Acute systolic congestive heart failure: Continue Lasix. Continue carvedilol. 3. Hypertension: Continue Coreg, hydralazine. Blood pressure is well controlled. 4. Diabetes mellitus: Monitor Accu-Cheks and cover with sliding scale insulin. Follow up with PCP. 5. ESRD: Continue dialysis per nephrology recommendations. Right arm AV fistula done 05/05/17. 6. Anemia: Possibly secondary to chronic kidney disease. Monitor H&H. 7. DVT prophylaxis: Heparin. 8. Episode of sedation following surgery: Likely due to anesthesia, Fentanyl patch. Responded to Narcan. Fentanyl patch removed. No further episodes. Discussed with case management. Discharge Planning Discharge home when outpatient dialysis has been arranged. Problem Qualifiers (1) Hypertension: Qualified Codes: I10 - Essential (primary) hypertension Jorge Mendieta MD May 10, 2017 13:11
--- NOTE | 2017-05-10 14:36 | HHI.NPPN ---
Subjective History of Present Illness 51 year old with IDDM, CKD stage 5, anemia, Sec [facility] Additional Remarks Review of Systems General Constitutional: Fatigue Respiratory Respiratory Remarks Denies SOB Cardiovascular Cardiac: Edema Gastrointestinal GI Remarks No abdominal pain Objective Data Data Vital Signs Date Time Temp Pulse Resp B/P (MAP) Pulse Ox O2 Delivery O2 Flow Rate FiO2 05/10/17 08:00 97.6 72 17 142/77 (98) 97 05/10/17 08:00 72 05/10/17 08:00 97 Room Air 05/10/17 03:45 96.9 76 17 143/76 (98) 95 05/10/17 00:54 97.5 71 17 140/72 (94) 99 05/10/17 00:19 71 05/09/17 21:30 Room Air 05/09/17 21:25 97.0 78 17 163/82 (109) 98 05/09/17 19:55 78 05/09/17 16:00 96.8 72 18 117/66 (83) 95 -: 05/06/17 0444 05/06/17 0444 Physical Exam General Appearance: Well Developed, Well Nourished Neck Neck Exam: Neck Supple Pulmonary Resp Exam: Clear Bilaterally, Decreased Bases Gastrointestinal/Abdomen GI Exam: Soft, Non-Tender, Bowel Sounds Present Extremeties Extremities Exam: Moderate Edema, Pitting Edema Assessment/Plan Problem List: (1) ESRD (end stage renal disease) on dialysis ICD Codes: N18.6 - End stage renal disease; Z99.2 - Dependence on renal dialysis Plan: C3-C4 normal CHAD neg PhosLo 667 mg tid with meals. Nephrocaps daily HD is MWF with permacath AVF Rt forearm by Dr. Lauren harding L thoracotomy CT removed HD out pt HD in [place] setup done Patient seen and examined, agree with above. Out Patient HD arranged. (2) Acute renal failure ICD Codes: N17.9 - Acute kidney failure, unspecified Plan: ESRD. Dialysis through PermCath. He is positive for Hepatitis C Ab , RNA negative (3) CKD (chronic kidney disease), stage V ICD Codes: N18.5 - Chronic kidney disease, stage 5 Plan: ESRD. (4) Diabetes ICD Codes: E11.9 - Type 2 diabetes mellitus without complications Status: Chronic Plan: Complications including renal failure (5) Hypertension ICD Codes: I10 - Essential (primary) hypertension Plan: Continue to monitor progress (6) Anemia ICD Codes: D64.9 - Anemia, unspecified Plan: Continue to monitor on Procrit Problem Qualifiers (1) Diabetes: (2) Hypertension: Qualified Codes: I10 - Essential (primary) hypertension Jeremy Light MD May 10, 2017 14:36
== END 2017-05-10 15:26 | disposition home or self-care (01) | DRG 264 ==
LOC: HCIS 19:05 → N06A 04-26 22:32 → N03B 05-02 16:17 → N06A 05-04 21:27
PROVIDERS: ADMIT Family Medicine; ATTEND Family Medicine
PROC: 0W9B3ZX Drainage of Left Pleural Cavity, Percutaneous Approach, Diagnostic (ICD-10-PCS; 2017-04-26)
PROC: 05HM33Z Insertion of Infusion Device into Right Internal Jugular Vein, Percutaneous Approach (ICD-10-PCS; 2017-04-28)
PROC: 5A1D70Z Performance of Urinary Filtration, Intermittent, Less than 6 Hours Per Day (ICD-10-PCS; 2017-04-28)
PROC: 0DJ08ZZ Inspection of Upper Intestinal Tract, Via Natural or Artificial Opening Endoscopic (ICD-10-PCS; 2017-04-28)
PROC: 0DBK8ZX Excision of Ascending Colon, Via Natural or Artificial Opening Endoscopic, Diagnostic (ICD-10-PCS; 2017-04-28)
PROC: 0DBM8ZX Excision of Descending Colon, Via Natural or Artificial Opening Endoscopic, Diagnostic (ICD-10-PCS; 2017-04-28)
PROC: 0DJ08ZZ Inspection of Upper Intestinal Tract, Via Natural or Artificial Opening Endoscopic (ICD-10-PCS; 2017-04-29)
PROC: 0DJD8ZZ Inspection of Lower Intestinal Tract, Via Natural or Artificial Opening Endoscopic (ICD-10-PCS; 2017-04-29)
PROC: 0BNL0ZZ Release Left Lung, Open Approach (ICD-10-PCS; 2017-05-02)
PROC: 0W9B30Z Drainage of Left Pleural Cavity with Drainage Device, Percutaneous Approach (ICD-10-PCS; 2017-05-02)
PROC: 0W9B0ZZ Drainage of Left Pleural Cavity, Open Approach (ICD-10-PCS; 2017-05-02)
PROC: 031B0ZF Bypass Right Radial Artery to Lower Arm Vein, Open Approach (ICD-10-PCS; principal; 2017-05-05 12:21)
DX: I13.2 Hypertensive heart and chronic kidney disease with heart failure and with stage 5 chronic kidney disease, or end stage renal disease (principal); J86.9 Pyothorax without fistula; N17.9 Acute kidney failure, unspecified; J91.8 Pleural effusion in other conditions classified elsewhere; K31.84 Gastroparesis; N18.6 End stage renal disease; I08.3 Combined rheumatic disorders of mitral, aortic and tricuspid valves; J93.82 Other air leak; E11.43 Type 2 diabetes mellitus with diabetic autonomic (poly)neuropathy; E11.22 Type 2 diabetes mellitus with diabetic chronic kidney disease; I50.23 Acute on chronic systolic (congestive) heart failure; J98.11 Atelectasis; R06.01 Orthopnea; B19.20 Unspecified viral hepatitis C without hepatic coma; D50.9 Iron deficiency anemia, unspecified; D63.1 Anemia in chronic kidney disease; E78.5 Hyperlipidemia, unspecified; K52.9 Noninfective gastroenteritis and colitis, unspecified; R13.10 Dysphagia, unspecified; Z77.22 Contact with and (suspected) exposure to environmental tobacco smoke (acute) (chronic); Z96.653 Presence of artificial knee joint, bilateral; R63.4 Abnormal weight loss; Z23 Encounter for immunization
CPT/HCPCS: 32555; 36558; 71045; 71250; 76775; 76937; 77001; 80048; 80053; 80074; 80076; 81001; 82150; 82272; 82550; 82570; 82805; 82945; 82948; 83540; 83550; 83615; 83735; 83880; 83970; 83986; 84100; 84156; 84157; 84165; 84484; 85025; 85027; 85610; 85652; 85730; 86021; 86038; 86140; 86160; 86335; 86430; 86850; 86900; 86901; 86920; 87015; 87070; 87102; 87116; 87176; 87205; 87206; 87328; 87329; 87493; 87506; 87522; 87902; 88112; 88305; 89051; 90686; 90935; 93005; 93306; 93970; 93998; 94002; 94003; 94150; 94640; 94664; 96374; 96375; 99152; 99153; C1729; C1750; C1769; J0330; J0360; J0690; J1100; J1580; J1644; J1756; J1815; J1940; J2250; J2270; J2405; J2543; J3010; J3370; J7030; J7040; Q2038; Q4081